=== PATIENT | male | born 1935 | race Two or more races ===

== ENCOUNTER 2017-03-13 14:54 | Inpatient (IN) | payer MEDICARE, MEDICAID ==
[~2017-03-13] VITALS: Ht 167.6 cm; Wt 87.1 kg
[2017-03-13] VITALS (9 sets, daily range): BP systolic 74–95; BP diastolic 43–60
--- NOTE | 2017-03-13 14:59 | Emergency Room Report ---
History of Present Illness General Chief Complaint: Fever Source: Patient Present Illness HPI This patient presents from a senior care facility. She presents with hypotension and fever. The patient had had a recent episode of pneumonia and was treated with IV antibiotics and transferred to the senior care facility. Today at the facility she was found to be hypotensive and febrile. Patient has a complicated medical history to include atrial fibrillation, Parkinson's, prosthetic heart valve, hypothyroidism, hepatitis C, coronary artery disease. The patient is unable to give a history. History is obtained from EMS and medical record. Allergies: Coded Allergies: No Known Allergies (Unverified , 03/13/17) Patient History Past Medical History: see triage record, old chart reviewed, AFib, arrhyth, asthma, CVA/TIA, dementia, other - Parkinson's, Hypothyroid, HCV Past Surgical History: pacemaker, other - Prosthetic heart valve Social History: Denies: alcohol use, drug use, smoking Reviewed Nursing Documentation: PMH: Agreed, PSxH: Agreed Review of Systems All Other Systems: negative except mentioned in HPI Physical Exam Vital Signs Date Time Temp Pulse Resp B/P Pulse Ox O2 Delivery O2 Flow Rate FiO2 03/13/17 14:52 102.0 88 18 89/52 94 Room Air Sp02 EP Interpretation: reviewed, normal General Appearance: no apparent distress, GCS 15, Chronically Ill Head: normocephalic, atraumatic Eyes: bilateral eye PERRL, bilateral eye normal inspection ENT: hearing grossly normal, normal pharynx, no angioedema Neck: full range of motion, supple/symm/no masses Respiratory: chest non-tender, lungs clear, no respiratory distress, no retraction, no accessory muscle use, wheezing - L. lung najera Cardiovascular #1: regular rate, rhythm, no edema, systolic murmur Gastrointestinal: soft, no guarding, no rebound, distended, tenderness - Diffusely ttp Rectal: deferred Musculoskeletal: normal range of motion, non-tender Neurologic: alert, responsive, other - Unsure of baseline, non-focal Skin: normal color, no rash, warm/dry, well hydrated Medical Decision Making Diagnostic Impression: Primary Impression: Sepsis Additional Impressions: Septic shock Fever Colitis ER Course This patient presents with septic shock. He has a white blood cell count of 53, 000. He is a temp of 102 and he is hypotensive. The patient was given aggressive IV fluid resuscitation and broad-spectrum antibiotics. The patient continued to have a declining blood pressure. Therefore, I felt I should put in a central line and start pressors, however the and daughter are bedside and states that the patient is DO NOT RESUSCITATE. This is also per the patient 's wishes. They only want limited intervention. They do not want any central lines, surgeries or pressors. They do not want intubation. The only want selected interventions. They would like him comfortable. He did agree to undergo CT of the abdomen and pelvis given that I could not find a source of this patient's sepsis. There is no evidence of urinary tract infection or significant pneumonia. CT of the abdomen and pelvis showed findings c/w colitis. Given the patient resides in a senior care facility, this could be C. difficile colitis. The patient was given Flagyl through the G-tube to try to treat this as a possibility. The patient continued to be very hypotensive. The patient is a very poor prognosis. However, the patient is DO NOT RESUSCITATE and primarily comfort measures therefore was placed in a telemetry bed instead of the ICU. This patient is critically ill. This patient required complex medical decision- making, aggressive intervention, extensive laboratory workup and monitoring. Critical care time: 40 minutes. Labs Test 03/13/17 15:10 White Blood Count 53.8 K/UL (4.8-10.8) Red Blood Count 3.61 M/UL (4.70-6.10) Hemoglobin 10.8 G/DL (14.2-18.0) Hematocrit 33.0 % (42.0-52.0) Mean Corpuscular Volume 91 FL (80-99) Mean Corpuscular Hemoglobin 30.0 PG (27.0-31.0) Mean Corpuscular Hemoglobin Concent 32.9 G/DL (32.0-36.0) Red Cell Distribution Width 12.3 % (11.6-14.8) Platelet Count 392 K/UL (150-450) Mean Platelet Volume 5.9 FL (6.5-10.1) Neutrophils (%) (Auto) % (45.0-75.0) Lymphocytes (%) (Auto) % (20.0-45.0) Monocytes (%) (Auto) % (1.0-10.0) Eosinophils (%) (Auto) % (0.0-3.0) Basophils (%) (Auto) % (0.0-2.0) EKG Diagnostic Results Rate: normal Rhythm: NSR ST Segments: no acute changes Rhythm Strip Diag. Results EP Interpretation: yes Rate: 80's Rhythm: NSR, no PVC's, no ectopy Chest X-Ray Diagnostic Results Chest X-Ray Ordered: Yes # of Views/Limited/Complete: 1 View Interpretation: no consolidation, no effusion, no pneumothorax Indication: Other - Fever Impression: No acute disease Date Electronically Signed: Mar 13, 2017 Time Electronically Signed: 18:40 Interpreting ER Physician: Jeyson CT/MRI/US Diagnostic Results CT/MRI/US Diagnostic Results : Imaging Test Ordered: CT abd/pelvis Impression Findings consistent with colitis and UA this. Please see official report. Last Vital Signs Date Time Temp Pulse Resp B/P Pulse Ox O2 Delivery O2 Flow Rate FiO2 03/13/17 14:52 102.0 88 18 89/52 94 Room Air Disposition: ADMITTED INPATIENT Condition: Critical CHAVA HAN D.O. Mar 13, 2017 14:59
[2017-03-13] MEDS ORDERED: Acetaminophen 650 MG SUPP RECTAL ONE (15:20)
[2017-03-13] MEDS ORDERED: Acetaminophen 650mg/20.3ml ONE (15:33)
[2017-03-13 15:34] LABS: MEAN CORPUSCULAR HGB CONC 32.9 G/DL (32.0-36.0); MEAN CORPUSCULAR VOLUME 91 FL (80-99); MEAN PLATELET VOLUME 5.9 FL (6.5-10.1); PLATELET COUNT 392 K/UL (150-450); RED BLOOD COUNT 3.61 M/UL (4.70-6.10); RED CELL DISTRIBUTION WIDTH 12.3 % (11.6-14.8)
[2017-03-13 15:39] LABS: WHITE BLOOD COUNT 53.8 K/UL (4.8-10.8)
[2017-03-13] MEDS ORDERED: Acetaminophen 650mg/20.3ml NG ONE (15:45)
[2017-03-13] MEDS ORDERED: Acetaminophen 650mg/20.3ml GT ONE (15:45)
[2017-03-13 15:52] LABS: TROPONIN I < 0.30 ng/mL (<=0.30)
[2017-03-13 15:55] LABS: ALANINE AMINOTRANSFERASE 21 U/L (3-41); ALBUMIN/GLOBULIN RATIO 0.6 (1.0-2.7); ASPARTATE AMINO TRANSFERASE 30 U/L (5-40); CARBON DIOXIDE 26 mEQ/L (20-30); HEMOLYSIS 21; TOTAL PROTEIN 5.5 g/dL (6.6-8.7)
[2017-03-13 15:56] LABS: ANION GAP 16 (5-15); CHLORIDE 89 mEQ/L (98-107); POTASSIUM 4.1 mEQ/L (3.4-4.9); SODIUM 131 mEQ/L (135-145)
[2017-03-13 16:00] LABS: REFLEX LACTIC ACID YES OR NO YES
--- NOTE | 2017-03-13 16:00 | Diagnostic Imaging Report ---
Indication: Chest pain Technique: One view of the chest Comparison: 07/29/2015 Findings: There is some atelectasis at both lung bases. No definite infiltrates, effusions, or congestion. The heart size is normal. Again demonstrated is a left chest pacemaker and evidence of prior aortic valve replacement. Impression: No acute process
[2017-03-13 16:06] LABS: CKMB 5.2 ng/mL (< 6.7)
[2017-03-13 16:17] LABS: APPEARANCE,URINE CLEAR; KETONES,URINE 1+ (NEGATIVE); LEUKOCYTE ESTERASE ,URINE 1+ (NEGATIVE); NITRITE,URINE NEGATIVE (NEGATIVE); PH,URINE 5 (4.5-8.0); PROTEIN,URINE 1+ (NEGATIVE); UROBILINOGEN,URINE 4 MG/DL (0.0-1.0)
[2017-03-13] MEDS ORDERED: Meropenem 1gm vial ONE (16:28)
[2017-03-13] MEDS ORDERED: Lidocaine 1% MPF 10mg/ml 5ml ONE (16:29)
[2017-03-13] MEDS ORDERED: DOPamine 400mg/250ml 250 ML IV ONE (16:30)
[2017-03-13] MEDS ORDERED: Meropenem 1 GM in NS 110 ML IVPB ONE (16:30)
[2017-03-13 16:31] LABS: AMORPHOUS SEDIMENT,UR FEW /LPF; BACTERIA,URINE FEW /HPF; WBC,URINE 0-2 /HPF (0 - 0)
[2017-03-13 16:44] LABS: LYMPHOCYTES % (MANUAL) 4 % (20-45); NEUTROPHILS % (MANUAL) 93 % (45-75); TOTAL CELLS COUNTED 100
[2017-03-13] MEDS ORDERED: AMIODARONE HCL400 M1 GT (16:44)
[2017-03-13] MEDS ORDERED: LEVOTHYROXINE88 MCG GT (16:44)
[2017-03-13] MEDS ORDERED: DIGOXIN125 MCG GT (16:44)
[2017-03-13] MEDS ORDERED: VITAMIN D1000 UNI1 GT ×2 (16:44→18:34)
[2017-03-13] MEDS ORDERED: DUONEB 0.5-3(2.53 ML HHN (16:44)
[2017-03-13] MEDS ORDERED: ALBUTEROL2.5 MG/3 M INH (16:44)
[2017-03-13] MEDS ORDERED: DOPamine 400mg/250ml 250 ML IV SCH (16:45)
[2017-03-13] MEDS ORDERED: PREDNISONE10 M2 GT (16:47)
[2017-03-13] MEDS ORDERED: RIVASTIGMINE4.5 MG PO (16:47)
[2017-03-13] MEDS ORDERED: NAMENDA10 MG GT ×2 (16:47→18:39)
[2017-03-13] MEDS ORDERED: PRAMIPEXOLE DI0.5 MG GT ×2 (16:47→18:58)
[2017-03-13] MEDS ORDERED: METOPROLOL TART25 MG GT (16:47)
[2017-03-13] MEDS ORDERED: EXELON4.6 MG TD (16:47)
[2017-03-13] MEDS ORDERED: MULTIPLE VITAM1 EAC6 GT (16:47)
[2017-03-13 16:50] LABS: BAND NEUTROPHILS % (MANUAL) 0 % (0-8); BASOPHILS % (MANUAL) 0 % (0-2); EOSINOPHILS % (MANUAL) 0 % (0-3); PLATELET ESTIMATE ADEQUATE; PLATELET MORPHOLOGY NORMAL
[2017-03-13] MEDS ORDERED: DALIRESP500 MCG GT (16:50)
[2017-03-13] MEDS ORDERED: SINGULAIR10 MG GT ×2 (16:50→18:42)
[2017-03-13] MEDS ORDERED: SINEMET 25-1001 EAC1 GT (16:50)
[2017-03-13] MEDS ORDERED: AMIODARONE HCL100 MG GT (18:31)
[2017-03-13] MEDS ORDERED: MULTIVITAMINS1 EAC8 GT (18:40)
[2017-03-13] MEDS ORDERED: metroNIDAZOLE 500mg 100 ML IVPB ONE (18:45)
[2017-03-13] MEDS ORDERED: Vancomycin 1 GM in D5W 275 ML IVPB ONE (18:45)
[2017-03-13] MEDS ORDERED: Vancomycin 1gm inj IVPB ONE (20:32)
--- NOTE | 2017-03-14 00:30 | History and Physical Report ---
DATE OF ADMISSION: 03/13/2017 REASON FOR ADMISSION: Respiratory failure, fever, and sepsis. HISTORY OF PRESENT ILLNESS: The patient is an 81-year-old male brought in with hypotension and fever. The patient with increasing congestion. The patient was transferred by 911 to the emergency room. The patient had multiple medical problems and seen in the emergency room and per family's decision they want Do Not Resuscitate order and are interested in comfort care. Due to lack of improvement, the patient is unable to give any history at this time. The patient is doing poorly. The patient is currently hypotensive and appears to be clearly withdrawn and appears acute. The patient was also noted to have profound leukocytosis. PAST MEDICAL AND SURGICAL HISTORY: Notable for prior bouts of sepsis, strokes, atrial fibrillation, Parkinsonism, aspiration, G-tube, CAD, and hypothyroidism. The patient with history of pacemaker, prosthetic heart valve. MEDICATIONS: Reviewed. ALLERGIES: Reviewed. SOCIAL HISTORY: Nonsmoker and nondrinker. Essentially bedbound. The patient does have a and is retired, [place] descent. REVIEW OF SYSTEMS: Unobtainable. PHYSICAL EXAMINATION: GENERAL: The patient is an ill-appearing male, withdrawn. VITAL SIGNS: Heart rate 77, blood pressure 83/51, O2 saturation 99%, and temperature 97.1. T-max 102.1. HEENT: Negative. Pupils are very sluggish at present. NECK: Supple. RESPIRATORY: Coarse breath sounds and rhonchi diffusely. The patient without any clear accessory muscle use. CARDIAC: S1 and S2. Regular rhythm. Systolic murmur noted. No rubs or gallops. ABDOMEN: Soft and nontender. G-tube in place. No significant distention. EXTREMITIES: No cyanosis or clubbing. There are contractures. NEUROLOGIC: Unable to assess. LABORATORY DATA: Laboratory data reviewed. The white count is currently elevated at 53, hemoglobin 10.8, and hematocrit 33. The remainder of the labs were notable for platelets which are normal. Sodium 131, BUN 35, and creatinine is 1. Albumin is 2.2. Urinalysis, 1+ leukocyte esterase, 0 to 2 white cells. IMPRESSION: 1. Profound sepsis with shock, negative chest x-ray, negative urinalysis, profound leukocytosis. 2. Atrial fibrillation. 3. Stroke. 4. Acute on chronic encephalopathy. 5. Prosthetic heart valve per history. 6. Severe protein-calorie malnutrition. RECOMMENDATIONS: 1. Prognosis is very poor. 2. We will give IV antibiotics, IV hydration, provide respiratory care, resume penitentiary medications. As per discussion with the family, they want more comfort care and we will discuss whether the plan is to remove current medications, we will call ID evaluation if the patient survives. The patient is critical and prognosis is very poor. Julian Soni M.D. DR: Rashid JOB#: [id number] CC: MARCO ANTONIO
[2017-03-14 04:09] VITALS: BP 91/41
[2017-03-14] MEDS ORDERED: Zosyn 3.375gm inj ONE (06:10)
[2017-03-14] MEDS: Piperacillin/Tazobactam 3.375 GM in D5W 110 ML IVPB SCH ×3 (06:19→22:43)
[2017-03-14 07:41] LABS: MEAN CORPUSCULAR HEMOGLOBIN 31.8 PG (27.0-31.0); MEAN CORPUSCULAR HGB CONC 34.4 G/DL (32.0-36.0); MEAN CORPUSCULAR VOLUME 92 FL (80-99); MEAN PLATELET VOLUME 5.7 FL (6.5-10.1); PLATELET COUNT 427 K/UL (150-450); RED BLOOD COUNT 3.06 M/UL (4.70-6.10); RED CELL DISTRIBUTION WIDTH 12.3 % (11.6-14.8)
[2017-03-14 07:44] LABS: WHITE BLOOD COUNT 47.4 K/UL (4.8-10.8)
[2017-03-14 07:48] LABS: ANION GAP 18 (5-15); CALCIUM 7.5 mg/dL (8.6-10.2); CARBON DIOXIDE 23 mEQ/L (20-30); CHLORIDE 95 mEQ/L (98-107); CREATININE 0.9 mg/dL (0.7-1.2); HEMOLYSIS 42; POTASSIUM 4.1 mEQ/L (3.4-4.9); SODIUM 136 mEQ/L (135-145)
[2017-03-14 08:00] VITALS: BP 92/53
[2017-03-14] MEDS: Sinemet 25/100 tab GT SCH ×4 (08:16→20:50)
[2017-03-14] MEDS: Amiodarone 200mg tab GT SCH (08:16)
[2017-03-14] MEDS: Digoxin 0.125mg tab GT SCH (08:17)
[2017-03-14] MEDS: Vitamin D 1000 IU Tab GT SCH (08:17)
[2017-03-14] MEDS: Pramipexole 0.5mg tab GT SCH ×4 (08:17→20:51)
[2017-03-14] MEDS: EXELON 4.6 MG TDERMAL SCH (08:23)
[2017-03-14] MEDS: Heparin 5000 units/ml inj SUBQ SCH ×2 (08:24→20:50)
[2017-03-14 10:00] LABS: BAND NEUTROPHILS % (MANUAL) 0 % (0-8); BASOPHILS % (MANUAL) 0 % (0-2); EOSINOPHILS % (MANUAL) 0 % (0-3); HYPOCHROMASIA 1+; LYMPHOCYTES % (MANUAL) 7 % (20-45); NEUTROPHILS % (MANUAL) 88 % (45-75); PLATELET ESTIMATE ADEQUATE; PLATELET MORPHOLOGY NORMAL; TOTAL CELLS COUNTED 100
[2017-03-14] MEDS: Vancomycin 1gm/D5W 275ml IVPB SCH ×4 (10:14→20:52)
--- NOTE | 2017-03-14 10:26 | Diagnostic Imaging Report ---
Indications: Shortness of breath, tachypnea Technique: Portable AP chest Findings: Comparison: 03/13/17 Cardiac silhouette remains normal in size. Pulmonary vasculature remains within normal limits. Linear densities persist in both lung bases. Lungs and pleura remain otherwise clear. Mild calcification and ectasia of the aortic arch pacemaker, sternal wires, bilateral glenohumeral degenerative arthropathy all again noted. IMPRESSION: No evidence of acute disease, unchanged Stable chronic changes as described
[2017-03-14] MEDS: metroNIDAZOLE 500mg tab ORAL SCH ×2 (11:13→22:43)
--- NOTE | 2017-03-14 11:30 | Pulmonology Progress Note ---
Assessment/Plan Assessment/Plan IMPRESSION: 1. Profound sepsis with shock, negative chest x-ray, negative urinalysis, profound leukocytosis. 2. Atrial fibrillation. 3. Stroke. 4. Acute on chronic encephalopathy. 5. Prosthetic heart valve per history. 6. Severe protein-calorie malnutrition. PLAN respiratory care oxygen IV antibiotics discussed with confirmed DNR start feeds impression, plan, and exam edited and reviewed in detail care discussed with RN Subjective Allergies: Coded Allergies: No Known Allergies (Unverified , 03/13/17) Objective Last 24 Hour Vital Signs Date Time Temp Pulse Resp B/P Pulse Ox O2 Delivery O2 Flow Rate FiO2 03/14/17 08:17 77 03/14/17 08:00 97.9 77 18 92/53 97 Room Air 03/14/17 07:55 Nasal Cannula 2.0 03/14/17 07:55 98 Nasal Cannula 2.0 03/14/17 07:55 79 20 Nasal Cannula 2.0 03/14/17 04:09 98.8 84 22 91/41 95 Nasal Cannula 2.0 03/14/17 04:00 77 03/14/17 00:00 78 03/13/17 23:57 99.0 78 20 84/46 95 Nasal Cannula 2.0 03/13/17 23:31 Nasal Cannula 2.0 28 03/13/17 23:31 98 Nasal Cannula 2.0 28 03/13/17 22:01 98.8 66 19 74/46 93 Nasal Cannula 03/13/17 22:00 81 03/13/17 21:50 99.1 79 29 87/43 99 Nasal Cannula 2.0 03/13/17 21:50 97.1 79 29 87/43 100 Nasal Cannula 2.0 03/13/17 21:15 99.1 75 28 84/47 99 Nasal Cannula 2.0 03/13/17 19:15 77 25 83/51 99 Nasal Cannula 2.0 03/13/17 17:00 83 28 85/48 99 Nasal Cannula 03/13/17 16:20 97.1 82 24 81/53 99 Nasal Cannula 2.0 03/13/17 16:00 85 26 95/60 99 Room Air 03/13/17 15:35 102.1 83 24 92/55 98 Nasal Cannula 2.0 03/13/17 15:30 84 26 Nasal Cannula 2.0 03/13/17 14:52 102.0 88 18 89/52 94 Room Air Intake and Output 03/13/17 03/14/17 19:00 07:00 Intake Total 3500 ml 700 ml Output Total 30 ml 700 ml Balance 3470 ml 0 ml Intake IV Total 3500 ml 700 ml Output Urine Total 30 ml 700 ml # Bowel Movements 1 Objective GENERAL: The patient is an ill-appearing male, withdrawn. HEENT: Negative. Pupils are very sluggish at present. NECK: Supple. RESPIRATORY: reduced breath sounds and reduced rhonchi diffusely. NAD CARDIAC: S1 and S2. Regular rhythm. Systolic murmur noted. No rubs or gallops. ABDOMEN: Soft and nontender. G-tube in place. No significant distention. EXTREMITIES: No cyanosis or clubbing. There are contractures. NEUROLOGIC: Unable to assess. withdrawn and nonverbal Microbiology Date/Time Source Procedure Growth Status 03/13/17 19:30 Stool Clostridium difficile Toxin Assay - Final Complete 03/13/17 15:50 Indwelling Cath Urine Culture - Preliminary NO GROWTH Resulted Laboratory Tests 03/13/17 15:10: White Blood Count 53.8*H, Red Blood Count 3.61L, Hemoglobin 10.8L, Hematocrit 33.0L, Mean Corpuscular Volume 91, Mean Corpuscular Hemoglobin 30.0, Mean Corpuscular Hemoglobin Concent 32.9, Red Cell Distribution Width 12.3, Platelet Count 392, Mean Platelet Volume 5.9L, Neutrophils (%) (Auto) , Lymphocytes (%) ( Auto) , Monocytes (%) (Auto) , Eosinophils (%) (Auto) , Basophils (%) (Auto) , Differential Total Cells Counted 100, Neutrophils % (Manual) 93H, Lymphocytes % (Manual) 4L, Monocytes % (Manual) 3, Eosinophils % (Manual) 0, Basophils % ( Manual) 0, Band Neutrophils 0, Platelet Estimate Adequate, Platelet Morphology Normal, Sodium Level 131L, Potassium Level 4.1, Chloride Level 89L, Carbon Dioxide Level 26, Anion Gap 16H, Blood Urea Nitrogen 35H, Creatinine 1.0, Estimat Glomerular Filtration Rate , Glucose Level 127H, Lactic Acid Level 2.00 , Calcium Level 8.0L, Total Bilirubin 0.5, Aspartate Amino Transf (AST/SGOT) 30 , Alanine Aminotransferase (ALT/SGPT) 21, Alkaline Phosphatase 106, Total Creatine Kinase 107, Creatine Kinase MB 5.2, Creatine Kinase MB Relative Index 4.8, Troponin I < 0.30, Total Protein 5.5L, Albumin 2.2L, Globulin 3.3, Albumin/ Globulin Ratio 0.6L 03/13/17 15:50: Urine Color Brown, Urine Appearance Clear, Urine pH 5, Urine Specific [place] 1.010, Urine Protein 1+H, Urine Glucose (UA) Negative, Urine Ketones 1+H, Urine Occult Blood Negative, Urine Nitrite Negative, Urine Bilirubin Negative, Urine Urobilinogen 4H, Urine Leukocyte Esterase 1+H, Urine RBC 2-4H, Urine WBC 0-2, Urine Squamous Epithelial Cells None, Urine Amorphous Sediment FewH, Urine Bacteria Few 03/14/17 05:00: White Blood Count 47.4*H, Red Blood Count 3.06L, Hemoglobin 9.7L, Hematocrit 28.3L, Mean Corpuscular Volume 92, Mean Corpuscular Hemoglobin 31.8H, Mean Corpuscular Hemoglobin Concent 34.4, Red Cell Distribution Width 12.3, Platelet Count 427, Mean Platelet Volume 5.7L, Neutrophils (%) (Auto) , Lymphocytes (%) ( Auto) , Monocytes (%) (Auto) , Eosinophils (%) (Auto) , Basophils (%) (Auto) , Differential Total Cells Counted 100, Neutrophils % (Manual) 88H, Lymphocytes % (Manual) 7L, Monocytes % (Manual) 5, Eosinophils % (Manual) 0, Basophils % ( Manual) 0, Band Neutrophils 0, Platelet Estimate Adequate, Platelet Morphology Normal, Sodium Level 136, Potassium Level 4.1, Chloride Level 95L, Carbon Dioxide Level 23, Anion Gap 18H, Blood Urea Nitrogen 31H, Creatinine 0.9, Estimat Glomerular Filtration Rate , Glucose Level 86, Calcium Level 7.5L, Hypochromasia 1+ Current Medications Medications (Trade) Dose Ordered Sig/Eddie Route PRN Reason Start Time Stop Time Status Last Admin Dose Admin Acetaminophen 650 mg 650 mg EVERY 4 HOURS PRN GT Mild Pain/Temp > 100.5 03/13/17 23:00 04/12/17 22:59 Albuterol Sulfate (Proventil) 2.5 mg EVERY 4 HOURS PRN HHN Shortness of Breath 03/13/17 23:00 03/18/17 22:59 Amiodarone HCl (Cordarone) 50 mg DAILY GT 03/14/17 09:00 04/13/17 08:59 03/14/17 08:16 Carbidopa/Levodopa (Sinemet 25/100) 1 ea FOUR TIMES A DAY GT 03/14/17 09:00 04/13/17 08:59 03/14/17 08:16 Dextrose (Dextrose 50%) STAT PRN IV Hypoglycemia 03/13/17 23:00 04/12/17 22:59 Digoxin (Lanoxin) 0.125 mg DAILY GT 03/14/17 09:00 04/13/17 08:59 03/14/17 08:17 Heparin Sodium (Porcine) (Heparin 5000 units/ml) 5,000 units EVERY 12 HOURS SUBQ 03/14/17 09:00 04/13/17 08:59 03/14/17 08:24 Levothyroxine Sodium (Synthroid) 88 mcg DAILY@0630 GT 03/14/17 06:30 04/13/17 06:29 03/14/17 06:19 Memantine (Namenda) 10 mg BEDTIME GT 03/14/17 21:00 04/13/17 20:59 Metronidazole (Flagyl) 500 mg Q8HR ORAL 03/14/17 11:00 03/21/17 10:59 03/14/17 11:13 Montelukast Sodium (Singulair) 10 mg QPM GT 03/14/17 16:30 04/13/17 16:29 Non-Formulary Medication (Non-Formulary Med) 1 ea DAILY ORAL 03/14/17 09:00 04/13/17 08:59 UNV Ondansetron HCl (Zofran) 4 mg EVERY 6 HOURS PRN IVP Nausea & Vomiting 03/13/17 23:00 04/12/17 22:59 Piperacillin Sod/ Tazobactam Sod/ Dextrose (Zosyn/D5W) 110 ml @ 27.5 mls/hr EVERY 8 HOURS IVPB 03/14/17 06:00 03/19/17 05:59 03/14/17 06:19 Pramipexole (Mirapex) 0.25 mg BEDTIME GT 03/14/17 21:00 04/13/17 20:59 Pramipexole (Mirapex) 0.5 mg TID GT 03/14/17 09:00 04/13/17 08:59 03/14/17 08:17 Rivastigmine Tartrate (Exelon) 4.6 mg DAILY TDERMAL 03/14/17 09:00 04/13/17 08:59 03/14/17 08:23 Sodium Chloride 1,000 ml @ 100 mls/hr Q10H IV 03/13/17 23:00 04/12/17 22:59 03/14/17 10:13 Vancomycin HCl 1 ea 1 ea DAILY PRN MISC Per rx protocol 03/13/17 23:00 04/12/17 22:59 Vancomycin HCl/ Dextrose (Vancomycin/D5W) 275 ml @ 183.708 mls/hr Q12H IVPB 03/14/17 08:00 03/19/17 07:59 03/14/17 10:14 Vitamin D (Vitamin D) 2,000 intlu DAILY GT 03/14/17 09:00 04/13/17 08:59 03/14/17 08:17 MOMO MOORE Mar 14, 2017 11:30
[2017-03-14 12:00] VITALS: BP 134/80
--- NOTE | 2017-03-14 13:04 | Diagnostic Imaging Report ---
Indications: Abdominal pain Technique: Continuous helical CT imaging of the abdomen and pelvis was performed with automatic exposure control following administration of nonionic IV contrast only, on a Siemens sensation [address] scanner. Axial and coronal images were reconstructed at 5 mm slice thickness. No oral contrast was administered per requesting physician's order, despite no contraindications listed. CTDI volume(s): 18 mGy Total DLP: 971 mGy-cm Findings: Comparison: None Lack of oral contrast limits evaluation of gastrointestinal tract. Percutaneous gastrostomy tube in place. Multiple small bowel loops are mildly distended and fluid-filled with air-fluid levels. No discrete transition point. Appendix not identified. Colon variably distended and fecal filled. Long segment circumferential mural thickening beginning of distal descending colon and extending for rectum. Diffuse mesenteric haziness. No extraluminal gas or fluid collections. Scattered arterial mural calcifications. No obvious flow-limiting stenosis or occlusion. Guillermo catheter in collapsed urinary bladder. Surgical clips in right inguinal region. Diastases of linea alba resulting in broad-based bulging of intra-abdominal wall contour. Superimposed small umbilical hernia contains only fat. Diffuse body wall haziness. Increased interstitial markings, irregular pleural-based linear densities in both lung bases. Pacemaker leads in right heart chambers. Aortic valve prosthesis in place. Sternal wires. Multilevel disc space narrowing with marginal osteophyte formation, vacuum phenomenon, discogenic sclerosis lumbar, lower thoracic spine. Facet hypertrophy lower lumbar spine. Calcified nodules bilateral buttock subcutaneous soft tissues. IMPRESSION: Long segment mural thickening of left colon and rectum compatible with proctocolitis, atypical for diverticulitis, favor infectious or noninfectious inflammatory (inflammatory bowel disease) etiology. Ischemia less likely, not entirely excludable. Small bowel findings suggest ileus, may be reactive to above or represent related enteritis. No evidence of obstruction. Diffuse mesenteric edema may be secondary to above and/or anasarca No other evidence of acute abdominopelvic disease, with limitation as described. Subtle but potentially significant abnormalities may be missed. Repeat CT scan with full oral and IV contrast preparation recommended for more complete evaluation, as clinically indicated Gastrostomy tube, Guillermo catheter Previous right inguinal herniorrhaphy Diastases of the linea alba Small fat-containing umbilical hernia Pulmonary bibasal subsegmental atelectasis, superimposed nonspecific interstitial changes Pacemaker, aortic valve prosthesis Degenerative spondylosis Bilateral buttock injection granulomas
[2017-03-14] MEDS ORDERED: Vancomycin oral 125mg/2.5ml ORAL SCH (13:30)
[2017-03-14 14:12] LABS: OTHERS PATHOLOGIST COMMENT
[2017-03-14 16:00] VITALS: BP 93/47
[2017-03-14] MEDS: Montelukast 10mg tablet GT SCH (17:14)
[2017-03-14] MEDS: Vancomycin oral 125mg/2.5ml GT SCH ×2 (17:16→20:51)
--- NOTE | 2017-03-14 19:30 | History and Physical Report ---
DATE OF ADMISSION: 03/13/2017 CHIEF COMPLAINT: Sepsis and colitis. HISTORY OF PRESENT ILLNESS: The patient is an 81-year-old male well known to me. He has a history of encephalopathy, stroke, hypertension, COPD, chronic respiratory failure, encephalopathy, severe Parkinson's disease, ischemic cardiomyopathy, conduction system disease, status post pacemaker. He presented from a shelter facility with complaints of abdominal pain, diarrhea, and severe leukocytosis. The patient was noted to be increasingly congestive, hypotensive, and febrile. According to the patient's , he has been having diarrhea for several days. On evaluation in the emergency room, the patient had a white count of 50,000. He had CT evidence of diffuse colitis. The patient was pancultured. He has been started on broad-spectrum antibiotics. He is now admitted for further inpatient evaluation and care. PAST MEDICAL HISTORY: As above. He has a history of atrial fibrillation and prosthetic heart valve. CURRENT MEDICATIONS: Reconciled and reviewed. ALLERGIES: None. SOCIAL HISTORY: Negative for tobacco, ethanol or drugs. The patient is DNR. FAMILY HISTORY: None. REVIEW OF SYSTEMS: Unobtainable from the patient as he is nonverbal. PHYSICAL EXAMINATION: VITAL SIGNS: Temperature is 99, blood pressure 84/46, pulse 78, and respirations 20. GENERAL: The patient in no apparent distress. He is poorly responsive. . NECK: Supple. There is no jugular venous distention. There is no lymphadenopathy. HEART: Regular rate and rhythm. LUNGS: Clear. ABDOMEN: Soft. Minimally distended. There is no rebound or guarding. EXTREMITIES: Without clubbing, cyanosis or edema. LABORATORY AND DIAGNOSTIC DATA: UA was negative. Sodium 131, potassium 4.1, BUN 35, and creatinine was 1. Lactic acid level was 2. The white count was 53,000, hemoglobin 10, and platelet count of 392,000. CT scan showed colitis. ASSESSMENT: This is an unfortunate male with multiple medical problems admitted with complaints of sepsis and colitis, suspect secondary to Clostridium difficile. 1. Colitis. 2. Sepsis. 3. Encephalopathy. 4. Chronic obstructive pulmonary disease. 5. Respiratory failure. 6. Atrial fibrillation. 7. History of hypertension. PLAN: IV antibiotics. Check C. difficile, empiric treatment for C. difficile colitis. ID and Pulmonary consultations. Continue G-tube feeds. Continue aggressive hydration. DNR as per the patient's advance directive. Blane Orantes M.D. DR: HEATHER JOB#: [id number] CC:
[2017-03-14] MEDS: Albuterol ud Inhalation HHN PRN (20:12)
[2017-03-14 20:19] VITALS: BP 92/52
[2017-03-14] MEDS: Memantine 10mg tab GT SCH (20:51)
[2017-03-15 00:02] VITALS: BP 93/56
[2017-03-15 03:53] VITALS: BP 88/54
[2017-03-15] MEDS: Piperacillin/Tazobactam 3.375 GM in D5W 110 ML IVPB SCH (05:33)
[2017-03-15] MEDS: metroNIDAZOLE 500mg tab ORAL SCH ×2 (05:33→13:48)
[2017-03-15 08:00] VITALS: BP 80/50
--- NOTE | 2017-03-15 08:08 | Pulmonology Progress Note ---
Assessment/Plan Assessment/Plan IMPRESSION: 1. Profound sepsis with shock, negative chest x-ray, negative urinalysis, profound leukocytosis. 2. Atrial fibrillation. 3. Stroke. 4. Acute on chronic encephalopathy. 5. Prosthetic heart valve per history. 6. Severe protein-calorie malnutrition. PLAN respiratory care oxygen IV antibiotics; follow up cultures discussed with confirmed DNR on feeds care noted and reviewed impression, plan, and exam edited and reviewed in detail care discussed with RN Subjective ROS Limited/Unobtainable: Yes Allergies: Coded Allergies: No Known Allergies (Unverified , 03/13/17) Subjective care noted and reviewed Objective Last 24 Hour Vital Signs Date Time Temp Pulse Resp B/P Pulse Ox O2 Delivery O2 Flow Rate FiO2 03/15/17 04:00 76 03/15/17 03:53 98.6 79 22 88/54 94 Nasal Cannula 2.0 03/15/17 00:02 98.1 75 20 93/56 97 Nasal Cannula 2.0 03/15/17 00:00 75 03/14/17 20:21 72 18 100 Nasal Cannula 2.0 28 03/14/17 20:19 98.8 78 21 92/52 94 Nasal Cannula 2.0 03/14/17 20:12 73 18 97 Nasal Cannula 2.0 28 03/14/17 20:00 75 03/14/17 19:30 97 Nasal Cannula 2.0 28 03/14/17 19:30 Nasal Cannula 2.0 28 03/14/17 19:30 76 18 Nasal Cannula 2.0 28 03/14/17 16:00 97.6 92 18 93/47 Nasal Cannula 2.0 98 03/14/17 15:26 75 03/14/17 12:00 97.2 80 18 134/80 Nasal Cannula 2.0 99 03/14/17 11:31 77 03/14/17 08:17 77 Intake and Output 03/14/17 03/15/17 19:00 07:00 Intake Total 1635.000 ml 1932.500 ml Output Total 800 ml Balance 1635.000 ml 1132.500 ml Intake Free Water 150 ml IV Total 1595.000 ml 1412.500 ml Tube Feeding 40 ml 370 ml Output Urine Total 800 ml # Bowel Movements 2 2 Objective GENERAL: The patient is an ill-appearing male, withdrawn. HEENT: Negative. Pupils are very sluggish at present. NECK: Supple. RESPIRATORY: reduced breath sounds and reduced rhonchi diffusely. NAD CARDIAC: S1 and S2. Regular rhythm. Systolic murmur noted. No rubs or gallops. ABDOMEN: Soft and nontender. G-tube in place. No significant distention. EXTREMITIES: No cyanosis or clubbing. There are contractures. NEUROLOGIC: Unable to assess. withdrawn and nonverbal reviewed and edited Microbiology Date/Time Source Procedure Growth Status 03/13/17 15:15 Blood Blood Culture - Preliminary NO GROWTH AFTER 24 HOURS Resulted 03/13/17 15:10 Blood Blood Culture - Preliminary NO GROWTH AFTER 24 HOURS Resulted 03/13/17 19:30 Stool Clostridium difficile Toxin Assay - Final Complete 03/13/17 15:50 Indwelling Cath Urine Culture - Preliminary NO GROWTH Resulted Laboratory Tests 03/15/17 07:24: Vancomycin Level Trough 14.1H Current Medications Medications (Trade) Dose Ordered Sig/Eddie Route PRN Reason Start Time Stop Time Status Last Admin Dose Admin Acetaminophen 650 mg 650 mg EVERY 4 HOURS PRN GT Mild Pain/Temp > 100.5 03/13/17 23:00 04/12/17 22:59 Albuterol Sulfate (Proventil) 2.5 mg EVERY 4 HOURS PRN HHN Shortness of Breath 03/13/17 23:00 03/18/17 22:59 03/14/17 20:12 Amiodarone HCl (Cordarone) 50 mg DAILY GT 03/14/17 09:00 04/13/17 08:59 03/14/17 08:16 Carbidopa/Levodopa (Sinemet 25/100) 1 ea FOUR TIMES A DAY GT 03/14/17 09:00 04/13/17 08:59 03/14/17 20:50 Dextrose (Dextrose 50%) STAT PRN IV Hypoglycemia 03/13/17 23:00 04/12/17 22:59 Digoxin (Lanoxin) 0.125 mg DAILY GT 03/14/17 09:00 04/13/17 08:59 03/14/17 08:17 Heparin Sodium (Porcine) (Heparin 5000 units/ml) 5,000 units EVERY 12 HOURS SUBQ 03/14/17 09:00 04/13/17 08:59 03/14/17 20:50 Levothyroxine Sodium (Synthroid) 88 mcg DAILY@0630 GT 03/14/17 06:30 04/13/17 06:29 03/15/17 05:33 Memantine (Namenda) 10 mg BEDTIME GT 03/14/17 21:00 04/13/17 20:59 03/14/17 20:51 Metronidazole (Flagyl) 500 mg Q8HR ORAL 03/14/17 11:00 03/21/17 10:59 03/15/17 05:33 Montelukast Sodium (Singulair) 10 mg QPM GT 03/14/17 16:30 04/13/17 16:29 03/14/17 17:14 Non-Formulary Medication (Non-Formulary Med) 1 ea DAILY ORAL 03/14/17 09:00 04/13/17 08:59 UNV Ondansetron HCl (Zofran) 4 mg EVERY 6 HOURS PRN IVP Nausea & Vomiting 03/13/17 23:00 04/12/17 22:59 Piperacillin Sod/ Tazobactam Sod/ Dextrose (Zosyn/D5W) 110 ml @ 27.5 mls/hr EVERY 8 HOURS IVPB 03/14/17 06:00 03/19/17 05:59 03/15/17 05:33 Pramipexole (Mirapex) 0.25 mg BEDTIME GT 03/14/17 21:00 04/13/17 20:59 03/14/17 20:51 Pramipexole (Mirapex) 0.5 mg TID GT 03/14/17 09:00 04/13/17 08:59 03/14/17 17:16 Rivastigmine Tartrate (Exelon) 4.6 mg DAILY TDERMAL 03/14/17 09:00 04/13/17 08:59 03/14/17 08:23 Sodium Chloride 1,000 ml @ 100 mls/hr Q10H IV 03/13/17 23:00 04/12/17 22:59 03/15/17 06:30 Vancomycin HCl (Vancomycin) 250 mg QID GT 03/14/17 14:52 03/21/17 13:29 03/14/17 20:51 Vancomycin HCl 1 ea 1 ea DAILY PRN MISC Per rx protocol 03/13/17 23:00 04/12/17 22:59 Vancomycin HCl/ Dextrose (Vancomycin/D5W) 275 ml @ 183.708 mls/hr Q12H IVPB 03/14/17 08:00 03/19/17 07:59 03/14/17 20:52 Vitamin D (Vitamin D) 2,000 intlu DAILY GT 03/14/17 09:00 04/13/17 08:59 03/14/17 08:17 MOMO MOORE Mar 15, 2017 08:07
[2017-03-15] MEDS: Digoxin 0.125mg tab GT SCH ×2 (09:17→09:49)
[2017-03-15] MEDS: Vancomycin 1gm/D5W 275ml IVPB SCH ×2 (09:17)
[2017-03-15] MEDS: Sinemet 25/100 tab GT SCH ×4 (09:18→21:30)
[2017-03-15] MEDS: Pramipexole 0.5mg tab GT SCH ×4 (09:18→21:30)
[2017-03-15] MEDS: Vitamin D 1000 IU Tab GT SCH (09:19)
[2017-03-15] MEDS: Vancomycin oral 125mg/2.5ml GT SCH ×4 (09:19→21:30)
[2017-03-15] MEDS: EXELON 4.6 MG TDERMAL SCH (09:20)
[2017-03-15] MEDS: Heparin 5000 units/ml inj SUBQ SCH ×2 (09:21→21:30)
[2017-03-15] MEDS ORDERED: NS 275ml ONE (10:29)
[2017-03-15] MEDS ORDERED: Tubing IV Secondary IV ONE (10:29)
[2017-03-15] MEDS ORDERED: Sterile Water Irrig 1000ml IRRIG ONE (10:29)
[2017-03-15] MEDS: Amiodarone 200mg tab GT SCH (11:41)
[2017-03-15 12:00] VITALS: BP 91/60
[2017-03-15] MEDS: Acetaminophen 650mg/20.3ml GT PRN (13:39)
--- NOTE | 2017-03-15 14:59 | General Progress Note ---
Assessment/Plan Problem List: (1) Sepsis ICD Codes: A41.9 - Sepsis, unspecified organism SNOMED: 97103895 (2) Septic shock ICD Codes: A41.9 - Sepsis, unspecified organism; R65.21 - Severe sepsis with septic shock SNOMED: 14241664 (3) Fever ICD Codes: R50.9 - Fever, unspecified SNOMED: 916726473 (4) Colitis ICD Codes: K52.9 - Noninfective gastroenteritis and colitis, unspecified SNOMED: 65613492 Status: stable, progressing Assessment/Plan cdiff rx gt feeds resp care suctioning family considering hospice Subjective ROS Limited/Unobtainable: Yes Constitutional: Reports: malaise, weakness HEENT: Reports: no symptoms Cardiovascular: Reports: no symptoms Respiratory: Reports: cough Gastrointestinal/Abdominal: Reports: diarrhea, difficulty swallowing Genitourinary: Reports: no symptoms Neurologic/Psychiatric: Reports: pre-existing deficit Endocrine: Reports: no symptoms Hematologic/Lymphatic: Reports: anemia Allergies: Coded Allergies: No Known Allergies (Unverified , 03/13/17) All Systems: reviewed and negative except above Subjective no events. family at the bedside. no fevers. no chills. tolerating feeds Objective Last 24 Hour Vital Signs Date Time Temp Pulse Resp B/P Pulse Ox O2 Delivery O2 Flow Rate FiO2 03/15/17 14:09 98.5 03/15/17 12:00 78 03/15/17 12:00 98.5 78 19 91/60 96 03/15/17 09:49 76 03/15/17 08:00 99.2 79 20 80/50 94 Nasal Cannula 2.0 03/15/17 08:00 77 03/15/17 04:00 76 03/15/17 03:53 98.6 79 22 88/54 94 Nasal Cannula 2.0 03/15/17 00:02 98.1 75 20 93/56 97 Nasal Cannula 2.0 03/15/17 00:00 75 03/14/17 20:21 72 18 100 Nasal Cannula 2.0 28 03/14/17 20:19 98.8 78 21 92/52 94 Nasal Cannula 2.0 03/14/17 20:12 73 18 97 Nasal Cannula 2.0 28 03/14/17 20:00 75 03/14/17 19:30 97 Nasal Cannula 2.0 28 03/14/17 19:30 Nasal Cannula 2.0 28 03/14/17 19:30 76 18 Nasal Cannula 2.0 28 03/14/17 16:00 97.6 92 18 93/47 Nasal Cannula 2.0 98 03/14/17 15:26 75 Intake and Output 03/14/17 03/15/17 19:00 07:00 Intake Total 1635.000 ml 1932.500 ml Output Total 800 ml Balance 1635.000 ml 1132.500 ml Intake Free Water 150 ml IV Total 1595.000 ml 1412.500 ml Tube Feeding 40 ml 370 ml Output Urine Total 800 ml # Bowel Movements 2 2 Laboratory Tests 03/15/17 07:24: Vancomycin Level Trough 14.1H Height (Feet): 5 Height (Inches): 6.00 Weight (Pounds): 192 General Appearance: WD/WN, confused Neck: supple Cardiovascular: normal rate, regular rhythm Respiratory/Chest: normal breath sounds, no respiratory distress, no accessory muscle use, rhonchi - bilaterally Neurologic: disoriented, unresponsive, aphasia Skin: normal pigmentation SONI EMERSON Mar 15, 2017 14:59
[2017-03-15] MEDS: Montelukast 10mg tablet GT SCH (15:59)
[2017-03-15 16:04] VITALS: BP 79/49
--- NOTE | 2017-03-15 18:00 | Consultation ---
DATE OF CONSULTATION: 03/15/2017 INFECTIOUS DISEASES CONSULTATION CONSULTING PHYSICIAN: Juan Jonas M.D. REFERRING PHYSICIAN: Julian Soni M.D. REASON FOR CONSULTATION: Leukocytosis. HISTORY OF PRESENTING ILLNESS: This is an 81-year-old gentleman with history of CVA, hypertension, chronic obstructive pulmonary disease, respiratory failure, and Parkinson disease, who came in with abdominal pain, diarrhea, and leukocytosis. He was found to have CT evidence of diffuse colitis and was found to have C. difficile colitis. An Infectious Diseases consultation has been obtained for antibiotics. PAST MEDICAL HISTORY: 1. History of encephalopathy. 2. CVA. 3. Hypertension. 4. Chronic obstructive pulmonary disease. 5. Respiratory failure. 6. History of encephalopathy. 7. Parkinson disease. 8. Cardiomyopathy. 9. 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 10. Atrial fibrillation. 11. History of prostatic heart valve. MEDICATIONS: As an inpatient, the patient is on Namenda, Mirapex, Singulair, G-tube vancomycin, Flagyl, subcutaneous heparin, amiodarone, Sinemet, digoxin, Mirapex, Exelon, vitamin D, intravenous vancomycin, Zosyn, levothyroxine, albuterol, Zofran, and Tylenol. ALLERGIES: No known drug allergies. SOCIAL HISTORY: No history of smoking, alcohol, or drug use. FAMILY HISTORY: Unknown. REVIEW OF SYSTEMS: Unable to obtain currently. PHYSICAL EXAMINATION: VITAL SIGNS: Temperature of 99.2 degrees, T-max of 99.2 degrees, pulse of 76, respiratory rate of 20, blood pressure 80/50, and O2 saturation of 94%. HEENT: Pupils equally reactive to light and accommodation. Mouth appears clean without thrush. NECK: Supple. No adenopathy. No JVD. CARDIOVASCULAR: Regular rate and rhythm. No murmurs. LUNGS: Wheezing noted bilaterally. ABDOMEN: Soft and nontender. G-tube site appears clean. EXTREMITIES: No cyanosis. No clubbing. Edema noted bilaterally. LABORATORY AND DIAGNOSTIC DATA: White count of 53 on 03/13/2017, white count of 47.4 on 03/14/2017, hemoglobin 9.7, hematocrit 28.3, MCV 92, and platelet count of 427,000 with neutrophils of 88%. Sodium 136, potassium 4.1, chloride 95, bicarbonate 23, BUN 31, creatinine 0.9, glucose 86, and calcium 7.5. Total bilirubin on 03/13/2017 is 0.5. AST 30, ALT 21, and alkaline phosphatase 106. CK of 107. CK-MB 5.2. Troponin less than 0.3. Total protein 5.5. Albumin 2.2. UA is showing 0 to 2 white cells. Stool for C. difficile was positive. Urine cultures are negative. Blood cultures are negative. Chest x-ray showed no evidence of acute disease. CT abdomen and pelvis is showing long segment wall thickening of the left colon and rectum compatible with proctocolitis, possible enteritis, diffuse mesenteric edema noted, atelectasis noted, and aortic valve prosthesis noted. ASSESSMENT: 1. This is a 81-year-old gentleman with history of aortic valve post prosthesis, hypertension, and chronic obstructive pulmonary disease, who comes in and is found to have leukocytosis and Clostridium difficile colitis. The leukocytosis is improving. 2. Cardiomyopathy. 3. Encephalopathy. 4. Parkinson disease. 5. Hypertension. PLAN: 1. Discontinue intravenous vancomycin and Zosyn. 2. We will continue Flagyl and p.o. vancomycin. 3. We will follow up cultures. I would like to thank, Dr. Soni, for this consultation. Juan Jonas M.D. DR: CARLOS JOB#: [id number] CC: Julian Soni M.D.; Fax#: [phone]
[2017-03-15 20:08] VITALS: BP 78/42
[2017-03-15] MEDS: Memantine 10mg tab GT SCH (21:30)
[2017-03-15] MEDS: metroNIDAZOLE 500mg tab GT SCH (22:29)
--- NOTE | 2017-03-15 23:34 | Wound Care Consultation ---
Wound Assessment Wound Assessment #1: Wound Number: #1 Wound Present on Admission: Yes New Wound: No Status Change of Wound: No Wound Location Body Site Modif: mid Wound Location Body Site: sacral Wound Type: other - possible sinus tract scar tissue, dry at this time. Lorie Test: Does not Lorie Wound Length: 0.4 Wound Width: 0.4 Wound Depth: 0.4 Percent of Wound Black/Brown: 100 - noted brown in color. Wound Drainage Amount: None Wound Drainage Odor: None/Absent Tissue Surrounding Wound: Intact Wound General Appearance: Clean/Dry - no drainage noted at this time, possible sinus tract remains dry at this time. Wound Assessment #2: Wound Number: #2 Wound Present on Admission: Yes New Wound: No Status Change of Wound: No Wound Location Body Site Modif: right Wound Location Body Site: heel Wound Type: pressure ulcer Lorie Test: Does not Lorie Pressure Ulcer Stage: deep tissue injury Wound Thickness: Full Thickness Wound Length: 6.0 Wound Width: 8.0 Wound Depth: utd Percent of Wound Purple/Maroon: 100 Wound Drainage Amount: None Wound Drainage Odor: None/Absent Tissue Surrounding Wound: Erythemic Wound General Appearance: Reddened - maroon Wound Assessment #3: Wound Number: #3 Wound Present on Admission: Yes New Wound: No Status Change of Wound: No Wound Location Body Site Modif: left, upper Wound Location Body Site: arm Wound Type: scab - dry scattered scabs. Lorie Test: Does not Lorie Wound Thickness: Partial Thickness Percent of Wound [place]/Red: 50 Percent of Wound Black/Brown: 50 - dry scabs. Wound Drainage Amount: None Wound Drainage Odor: None/Absent Tissue Surrounding Wound: Erythemic Wound General Appearance: Reddened, Clean/Dry Wound Assessment #4: Wound Number: #4 Wound Present on Admission: Yes New Wound: No Status Change of Wound: No Wound Location Body Site: abdomen Wound Type: scab - scattered scabs Lorie Test: Does not Lorie Percent of Wound [place]/Red: 100 Wound Drainage Amount: None Wound Drainage Odor: None/Absent Tissue Surrounding Wound: Erythemic Wound General Appearance: Reddened Wound Comment #1 Mid sacral possible sinus tract scar tissue.- site remains dry at this time, monitor for any drainage or change in condition in skin . #2 Right heel deep tissue injury pressure ulcer. #3 Left upper extremity scattered scabs. #4 Abdomen scattered scabs. Recommendation. - Local wound care as ordered. - Apply low air loss SPR mattress. -Keep clean and dry. -Offload affected sites. -Heel protectors. -Offload heels and feet. - Avoid shear and friction. -Optimize nutrition. -Assess and follow up with MD for any change of condition to skin noted. MORGAN BENZ Mar 15, 2017 23:34
[2017-03-16] VITALS: BP 92/59
[2017-03-16 04:00] VITALS: BP 86/48
[2017-03-16] MEDS: metroNIDAZOLE 500mg tab GT SCH ×3 (06:30→21:58)
[2017-03-16 08:00] VITALS: BP 137/49
[2017-03-16] MEDS: Sinemet 25/100 tab GT SCH ×4 (08:40→20:49)
[2017-03-16] MEDS: Vancomycin oral 125mg/2.5ml GT SCH ×4 (08:40→21:00)
[2017-03-16] MEDS: Amiodarone 200mg tab GT SCH (08:41)
[2017-03-16] MEDS: Pramipexole 0.5mg tab GT SCH ×4 (08:41→20:49)
[2017-03-16] MEDS: Vitamin D 1000 IU Tab GT SCH (08:41)
[2017-03-16] MEDS: Digoxin 0.125mg tab GT SCH (08:46)
[2017-03-16] MEDS: EXELON 4.6 MG TDERMAL SCH (08:48)
[2017-03-16] MEDS: Heparin 5000 units/ml inj SUBQ SCH ×2 (08:58→20:53)
--- NOTE | 2017-03-16 10:11 | Pulmonology Progress Note ---
Assessment/Plan Assessment/Plan IMPRESSION: 1. Profound sepsis with shock, negative chest x-ray, negative urinalysis, profound leukocytosis. 2. Atrial fibrillation. 3. Stroke. 4. Acute on chronic encephalopathy. 5. Prosthetic heart valve per history. 6. Severe protein-calorie malnutrition. PLAN respiratory care oxygen IV antibiotics; follow up cultures ID follow up discussed with and update given confirmed DNR on feeds care noted and reviewed impression, plan, and exam edited and reviewed in detail care discussed with RN Subjective ROS Limited/Unobtainable: Yes Allergies: Coded Allergies: No Known Allergies (Unverified , 03/13/17) Subjective care noted and reviewed was hypotensive Objective Last 24 Hour Vital Signs Date Time Temp Pulse Resp B/P Pulse Ox O2 Delivery O2 Flow Rate FiO2 03/16/17 08:46 75 03/16/17 08:00 97.9 76 17 137/49 93 Nasal Cannula 2.0 76 03/16/17 04:00 75 03/16/17 04:00 98.2 76 22 86/48 99 Nasal Cannula 2.0 76 03/16/17 00:00 75 03/16/17 00:00 98.4 75 22 92/59 98 Nasal Cannula 2.0 03/15/17 23:23 97 Nasal Cannula 2.0 28 03/15/17 23:23 Nasal Cannula 2.0 28 03/15/17 23:22 75 18 Nasal Cannula 2.0 28 03/15/17 20:08 99.7 76 21 78/42 92 Nasal Cannula 03/15/17 20:00 75 03/15/17 16:04 99.1 77 21 79/49 95 Nasal Cannula 2.0 03/15/17 16:00 76 03/15/17 14:09 98.5 03/15/17 12:00 78 03/15/17 12:00 98.5 78 19 91/60 96 Intake and Output 03/15/17 03/16/17 19:00 07:00 Intake Total 920 ml 700 ml Output Total 300 ml Balance 620 ml 700 ml Intake Oral 0 ml Free Water 40 ml IV Total 200 ml Tube Feeding 720 ml 660 ml Output Urine Total 300 ml # Bowel Movements 2 2 Objective GENERAL: The patient is an ill-appearing male, withdrawn. HEENT: Negative. Pupils are very sluggish at present. NECK: Supple. RESPIRATORY: reduced breath sounds and some rhonchi diffusely. NAD CARDIAC: S1 and S2. Regular rhythm. Systolic murmur noted. No rubs or gallops. ABDOMEN: Soft and nontender. G-tube in place. No significant distention. EXTREMITIES: No cyanosis or clubbing. There are contractures. NEUROLOGIC: Unable to assess. withdrawn and nonverbal reviewed and edited Microbiology Date/Time Source Procedure Growth Status 03/13/17 15:15 Blood Blood Culture - Preliminary NO GROWTH AFTER 24 HOURS Resulted 03/13/17 15:10 Blood Blood Culture - Preliminary NO GROWTH AFTER 24 HOURS Resulted 03/14/17 06:00 Wound Gram Stain - Final Resulted 03/14/17 06:00 Wound Wound Culture - Preliminary NO GROWTH AFTER 48 HOURS Resulted 03/13/17 19:30 Stool Clostridium difficile Toxin Assay - Final Complete 03/13/17 15:50 Indwelling Cath Urine Culture - Preliminary NO GROWTH AFTER 24 HOURS Resulted 03/13/17 18:05 Rectum VRE Culture - Final NO VANCOMYCIN RESISTANT ENTEROCOCCUS ... Complete Current Medications Medications (Trade) Dose Ordered Sig/Eddie Route PRN Reason Start Time Stop Time Status Last Admin Dose Admin Acetaminophen 650 mg 650 mg EVERY 4 HOURS PRN GT Mild Pain/Temp > 100.5 03/13/17 23:00 04/12/17 22:59 03/15/17 13:39 Albuterol Sulfate (Proventil) 2.5 mg EVERY 4 HOURS PRN HHN Shortness of Breath 03/13/17 23:00 03/18/17 22:59 03/14/17 20:12 Amiodarone HCl (Cordarone) 50 mg DAILY GT 03/14/17 09:00 04/13/17 08:59 03/16/17 08:41 Carbidopa/Levodopa (Sinemet 25/100) 1 ea FOUR TIMES A DAY GT 03/14/17 09:00 04/13/17 08:59 03/16/17 08:40 Dextrose (Dextrose 50%) STAT PRN IV Hypoglycemia 03/13/17 23:00 04/12/17 22:59 Digoxin (Lanoxin) 0.125 mg DAILY GT 03/14/17 09:00 04/13/17 08:59 03/16/17 08:46 Heparin Sodium (Porcine) (Heparin 5000 units/ml) 5,000 units EVERY 12 HOURS SUBQ 03/14/17 09:00 04/13/17 08:59 03/16/17 08:58 Levothyroxine Sodium (Synthroid) 88 mcg DAILY@0630 GT 03/14/17 06:30 04/13/17 06:29 03/16/17 06:49 Memantine (Namenda) 10 mg BEDTIME GT 03/14/17 21:00 04/13/17 20:59 03/15/17 21:30 Metronidazole (Flagyl) 500 mg Q8HR GT 03/15/17 22:00 03/22/17 21:59 03/16/17 06:30 Montelukast Sodium (Singulair) 10 mg QPM GT 03/14/17 16:30 04/13/17 16:29 03/15/17 15:59 Non-Formulary Medication (Non-Formulary Med) 1 ea DAILY ORAL 03/14/17 09:00 04/13/17 08:59 UNV Ondansetron HCl (Zofran) 4 mg EVERY 6 HOURS PRN IVP Nausea & Vomiting 03/13/17 23:00 04/12/17 22:59 Pramipexole (Mirapex) 0.25 mg BEDTIME GT 03/14/17 21:00 04/13/17 20:59 03/15/17 21:30 Pramipexole (Mirapex) 0.5 mg TID GT 03/14/17 09:00 04/13/17 08:59 03/16/17 08:41 Rivastigmine Tartrate (Exelon) 4.6 mg DAILY TDERMAL 03/14/17 09:00 04/13/17 08:59 03/16/17 08:48 Sodium Chloride (Sodium Chloride 1000ml bag) 1,000 ml @ 100 mls/hr Q10H IV 03/13/17 23:00 04/12/17 22:59 03/16/17 01:00 Vancomycin HCl (Vancomycin) 250 mg QID GT 03/14/17 14:52 03/21/17 13:29 03/16/17 08:40 Vitamin D (Vitamin D) 2,000 intlu DAILY GT 03/14/17 09:00 04/13/17 08:59 03/16/17 08:41 MOMO MOORE Mar 16, 2017 10:11
[2017-03-16 11:17] LABS: MEAN CORPUSCULAR HGB CONC 33.7 G/DL (32.0-36.0); MEAN CORPUSCULAR VOLUME 92 FL (80-99); MEAN PLATELET VOLUME 5.8 FL (6.5-10.1); PLATELET COUNT 469 K/UL (150-450); RED CELL DISTRIBUTION WIDTH 12.6 % (11.6-14.8)
[2017-03-16 11:21] LABS: WHITE BLOOD COUNT 25.6 K/UL (4.8-10.8)
[2017-03-16 11:35] LABS: ALANINE AMINOTRANSFERASE 6 U/L (3-41); ALBUMIN/GLOBULIN RATIO 0.6 (1.0-2.7); ANION GAP 12 (5-15); ASPARTATE AMINO TRANSFERASE 26 U/L (5-40); CALCIUM 7.3 mg/dL (8.6-10.2); CARBON DIOXIDE 26 mEQ/L (20-30); CHLORIDE 99 mEQ/L (98-107); CREATININE 0.8 mg/dL (0.7-1.2); HEMOLYSIS 1; POTASSIUM 3.1 mEQ/L (3.4-4.9); SODIUM 137 mEQ/L (135-145); TOTAL PROTEIN 4.7 g/dL (6.6-8.7)
[2017-03-16 12:00] VITALS: BP 100/51
--- NOTE | 2017-03-16 12:31 | General Progress Note ---
Assessment/Plan Problem List: (1) Sepsis ICD Codes: A41.9 - Sepsis, unspecified organism SNOMED: 73284238 (2) Septic shock ICD Codes: A41.9 - Sepsis, unspecified organism; R65.21 - Severe sepsis with septic shock SNOMED: 85305733 (3) Fever ICD Codes: R50.9 - Fever, unspecified SNOMED: 954347910 (4) Colitis ICD Codes: K52.9 - Noninfective gastroenteritis and colitis, unspecified SNOMED: 44718448 Status: stable, progressing Assessment/Plan cdiff rx gt feeds resp care suctioning replace lytes conservative rx Subjective Constitutional: Reports: malaise, weakness HEENT: Reports: no symptoms Cardiovascular: Reports: no symptoms Respiratory: Reports: no symptoms Gastrointestinal/Abdominal: Reports: diarrhea Genitourinary: Reports: no symptoms Neurologic/Psychiatric: Reports: pre-existing deficit Endocrine: Reports: no symptoms Hematologic/Lymphatic: Reports: anemia Allergies: Coded Allergies: No Known Allergies (Unverified , 03/13/17) All Systems: reviewed and negative except above Subjective no events. family not present. no fevers. no chills. tolerating feeds. still having some diarrhea Objective Last 24 Hour Vital Signs Date Time Temp Pulse Resp B/P Pulse Ox O2 Delivery O2 Flow Rate FiO2 03/16/17 08:46 75 03/16/17 08:00 75 03/16/17 08:00 97.9 76 17 137/49 93 Nasal Cannula 2.0 76 03/16/17 06:53 Nasal Cannula 2.0 03/16/17 06:52 98 Nasal Cannula 2.0 03/16/17 06:51 78 18 Nasal Cannula 2.0 03/16/17 04:00 75 03/16/17 04:00 98.2 76 22 86/48 99 Nasal Cannula 2.0 76 03/16/17 00:00 75 03/16/17 00:00 98.4 75 22 92/59 98 Nasal Cannula 2.0 03/15/17 23:23 97 Nasal Cannula 2.0 28 03/15/17 23:23 Nasal Cannula 2.0 28 03/15/17 23:22 75 18 Nasal Cannula 2.0 28 03/15/17 20:08 99.7 76 21 78/42 92 Nasal Cannula 03/15/17 20:00 75 03/15/17 16:04 99.1 77 21 79/49 95 Nasal Cannula 2.0 03/15/17 16:00 76 03/15/17 14:09 98.5 Intake and Output 03/15/17 03/16/17 19:00 07:00 Intake Total 920 ml 700 ml Output Total 300 ml Balance 620 ml 700 ml Intake Oral 0 ml Free Water 40 ml IV Total 200 ml Tube Feeding 720 ml 660 ml Output Urine Total 300 ml # Bowel Movements 2 2 Laboratory Tests 03/16/17 11:00: White Blood Count 25.6*H, Red Blood Count 3.10L, Hemoglobin 9.6L, Hematocrit 28.5L, Mean Corpuscular Volume 92, Mean Corpuscular Hemoglobin 31.0, Mean Corpuscular Hemoglobin Concent 33.7, Red Cell Distribution Width 12.6, Platelet Count 469H, Mean Platelet Volume 5.8L, Neutrophils (%) (Auto) , Lymphocytes (%) (Auto) , Monocytes (%) (Auto) , Eosinophils (%) (Auto) , Basophils (%) (Auto) , Neutrophils % (Manual) [Pending], Lymphocytes % (Manual) [Pending], Platelet Estimate [Pending], Platelet Morphology [Pending], Sodium Level 137, Potassium Level 3.1L, Chloride Level 99, Carbon Dioxide Level 26, Anion Gap 12, Blood Urea Nitrogen 18, Creatinine 0.8, Estimat Glomerular Filtration Rate , Glucose Level 112H, Calcium Level 7.3L, Total Bilirubin 0.2, Aspartate Amino Transf (AST /SGOT) 26, Alanine Aminotransferase (ALT/SGPT) 6, Alkaline Phosphatase 89, Total Protein 4.7L, Albumin 1.9L, Globulin 2.8, Albumin/Globulin Ratio 0.6L Height (Feet): 5 Height (Inches): 6.00 Weight (Pounds): 192 General Appearance: WD/WN, alert Neck: supple Cardiovascular: normal rate, regular rhythm Respiratory/Chest: lungs clear, normal breath sounds, no respiratory distress, no accessory muscle use Abdomen: normal bowel sounds, non tender, soft, no organomegaly, no mass Edema: no edema noted Arm (L), no edema noted Arm (R), no edema noted Leg (L), no edema noted Leg (R), no edema noted Pedal (L), no edema noted Pedal (R), no edema noted Generalized Neurologic: disoriented, unresponsive SONI EMERSON Mar 16, 2017 12:31
[2017-03-16] MEDS ORDERED: KCl 10% 40mEq/30ml liquid GT ONE (13:00)
[2017-03-16 13:54] LABS: ANISOCYTOSIS 1+; BAND NEUTROPHILS % (MANUAL) 0 % (0-8); BASOPHILS % (MANUAL) 1 % (0-2); EOSINOPHILS % (MANUAL) 0 % (0-3); HYPOCHROMASIA 2+; LYMPHOCYTES % (MANUAL) 11 % (20-45); NEUTROPHILS % (MANUAL) 79 % (45-75); PLATELET ESTIMATE ADEQUATE; PLATELET MORPHOLOGY NORMAL; SPHEROCYTES 1+; TOTAL CELLS COUNTED 100
[2017-03-16] MEDS ORDERED: Sterile Water Irrig 1000ml IRRIG ONE (14:38)
[2017-03-16] MEDS ORDERED: NS 275ml ONE (14:38)
[2017-03-16] MEDS ORDERED: Tubing IV Secondary IV ONE (14:38)
[2017-03-16 16:00] VITALS: BP 111/80
[2017-03-16] MEDS: Albuterol ud Inhalation HHN PRN (16:20)
[2017-03-16] MEDS: Montelukast 10mg tablet GT SCH (17:22)
[2017-03-16 20:00] VITALS: BP 107/64
[2017-03-16] MEDS: Memantine 10mg tab GT SCH (20:49)
[2017-03-17] VITALS: BP 94/60
[2017-03-17] MEDS: Vancomycin oral 125mg/2.5ml GT SCH ×4 (00:18→17:41)
[2017-03-17 04:00] VITALS: BP 102/58
[2017-03-17] MEDS: metroNIDAZOLE 500mg tab GT SCH ×3 (06:11→22:23)
[2017-03-17 08:00] VITALS: BP 124/59
[2017-03-17] MEDS: Amiodarone 200mg tab GT SCH (08:43)
[2017-03-17] MEDS: Pramipexole 0.5mg tab GT SCH ×4 (08:43→22:22)
[2017-03-17] MEDS: Sinemet 25/100 tab GT SCH ×4 (08:43→22:21)
[2017-03-17] MEDS: Vitamin D 1000 IU Tab GT SCH (08:43)
[2017-03-17] MEDS: EXELON 4.6 MG TDERMAL SCH (08:44)
[2017-03-17] MEDS: Digoxin 0.125mg tab GT SCH (08:44)
[2017-03-17] MEDS: Heparin 5000 units/ml inj SUBQ SCH ×2 (08:46→22:29)
--- NOTE | 2017-03-17 09:03 | General Progress Note ---
Assessment/Plan Problem List: (1) Sepsis ICD Codes: A41.9 - Sepsis, unspecified organism SNOMED: 06597828 (2) Septic shock ICD Codes: A41.9 - Sepsis, unspecified organism; R65.21 - Severe sepsis with septic shock SNOMED: 83130691 (3) Fever ICD Codes: R50.9 - Fever, unspecified SNOMED: 851702000 (4) Colitis ICD Codes: K52.9 - Noninfective gastroenteritis and colitis, unspecified SNOMED: 53711030 Status: stable, progressing Assessment/Plan cdiff rx gt feeds resp care suctioning replace lytes conservative rx Subjective ROS Limited/Unobtainable: No Constitutional: Reports: malaise, weakness HEENT: Reports: no symptoms Cardiovascular: Reports: no symptoms Respiratory: Reports: SOB at rest, cough Gastrointestinal/Abdominal: Reports: diarrhea, difficulty swallowing Genitourinary: Reports: no symptoms Neurologic/Psychiatric: Reports: pre-existing deficit Endocrine: Reports: no symptoms Hematologic/Lymphatic: Reports: anemia Allergies: Coded Allergies: No Known Allergies (Unverified , 03/13/17) Subjective no events. present. no fevers. no chills. tolerating feeds. still having diarrhea Objective Last 24 Hour Vital Signs Date Time Temp Pulse Resp B/P Pulse Ox O2 Delivery O2 Flow Rate FiO2 03/17/17 08:44 76 03/17/17 08:00 97.5 75 18 124/59 Nasal Cannula 2.0 86 03/17/17 04:00 76 03/17/17 04:00 98.1 75 20 102/58 98 Nasal Cannula 2.0 03/17/17 00:00 75 03/17/17 00:00 98.0 79 22 94/60 97 Nasal Cannula 2.0 03/16/17 23:46 97 Nasal Cannula 2.0 28 03/16/17 23:46 76 18 Nasal Cannula 2.0 03/16/17 20:00 97.9 77 20 107/64 97 Nasal Cannula 2.0 03/16/17 20:00 78 03/16/17 16:27 84 24 100 Nasal Cannula 2.0 03/16/17 16:17 84 20 99 Nasal Cannula 2.0 03/16/17 16:00 76 03/16/17 16:00 96.5 76 17 111/80 95 Nasal Cannula 2.0 03/16/17 12:00 97.2 105 19 100/51 99 Nasal Cannula 2.0 75 03/16/17 12:00 75 Intake and Output 03/16/17 03/17/17 19:00 07:00 Intake Total 1100 ml 1000 ml Output Total 1150 ml 700 ml Balance -50 ml 300 ml IV Total 1100 ml 1000 ml Output Urine Total 1150 ml 700 ml # Bowel Movements 2 3 Laboratory Tests 03/16/17 11:00: White Blood Count 25.6*H, Red Blood Count 3.10L, Hemoglobin 9.6L, Hematocrit 28.5L, Mean Corpuscular Volume 92, Mean Corpuscular Hemoglobin 31.0, Mean Corpuscular Hemoglobin Concent 33.7, Red Cell Distribution Width 12.6, Platelet Count 469H, Mean Platelet Volume 5.8L, Neutrophils (%) (Auto) , Lymphocytes (%) (Auto) , Monocytes (%) (Auto) , Eosinophils (%) (Auto) , Basophils (%) (Auto) , Differential Total Cells Counted 100, Neutrophils % (Manual) 79H, Lymphocytes % (Manual) 11L, Monocytes % (Manual) 9, Eosinophils % (Manual) 0, Basophils % ( Manual) 1, Band Neutrophils 0, Platelet Estimate Adequate, Platelet Morphology Normal, Hypochromasia 2+, Anisocytosis 1+, Spherocytes 1+, Sodium Level 137, Potassium Level 3.1L, Chloride Level 99, Carbon Dioxide Level 26, Anion Gap 12, Blood Urea Nitrogen 18, Creatinine 0.8, Estimat Glomerular Filtration Rate , Glucose Level 112H, Calcium Level 7.3L, Total Bilirubin 0.2, Aspartate Amino Transf (AST/SGOT) 26, Alanine Aminotransferase (ALT/SGPT) 6, Alkaline Phosphatase 89, Total Protein 4.7L, Albumin 1.9L, Globulin 2.8, Albumin/ Globulin Ratio 0.6L Height (Feet): 5 Height (Inches): 6.00 Weight (Pounds): 192 Objective General Appearance: WD/WN, alert Neck: supple Cardiovascular: normal rate, regular rhythm Respiratory/Chest: lungs clear, normal breath sounds, no respiratory distress, no accessory muscle use Abdomen: normal bowel sounds, non tender, soft, no organomegaly, no mass Edema: no edema noted Arm (L), no edema noted Arm (R), no edema noted Leg (L), no edema noted Leg (R), no edema noted Pedal (L), no edema noted Pedal (R), no edema noted Generalized Neurologic: disoriented, unresponsive SONI EMERSON Mar 17, 2017 09:03
--- NOTE | 2017-03-17 09:41 | Infectious Diseases Prog Note ---
Assessment/Plan Assessment/Plan A. C. difficile Colitis Leukocytosis improving Parkinson disease s/p CVA & left hemiplegia Hypothyroidism P; continue Flagyl & Po Vancomycin Subjective ROS Limited/Unobtainable: Yes Gastrointestinal/Abdominal: Reports: diarrhea Allergies: Coded Allergies: No Known Allergies (Unverified , 03/13/17) Objective Vital Signs Last 24 Hour Vital Signs Date Time Temp Pulse Resp B/P Pulse Ox O2 Delivery O2 Flow Rate FiO2 03/17/17 09:30 Nasal Cannula 2.0 28 03/17/17 09:29 97 Nasal Cannula 2.0 28 03/17/17 09:29 71 20 Nasal Cannula 2.0 03/17/17 08:44 76 03/17/17 08:00 97.5 75 18 124/59 Nasal Cannula 2.0 86 03/17/17 04:00 76 03/17/17 04:00 98.1 75 20 102/58 98 Nasal Cannula 2.0 03/17/17 00:00 75 03/17/17 00:00 98.0 79 22 94/60 97 Nasal Cannula 2.0 03/16/17 23:46 97 Nasal Cannula 2.0 28 03/16/17 23:46 76 18 Nasal Cannula 2.0 03/16/17 20:00 97.9 77 20 107/64 97 Nasal Cannula 2.0 03/16/17 20:00 78 03/16/17 16:27 84 24 100 Nasal Cannula 2.0 03/16/17 16:17 84 20 99 Nasal Cannula 2.0 03/16/17 16:00 76 03/16/17 16:00 96.5 76 17 111/80 95 Nasal Cannula 2.0 03/16/17 12:00 97.2 105 19 100/51 99 Nasal Cannula 2.0 75 03/16/17 12:00 75 Height (Feet): 5 Height (Inches): 6.00 Weight (Pounds): 192 General Appearance: no acute distress HEENT: mucous membranes moist Respiratory/Chest: lungs clear Cardiovascular: normal rate Abdomen: soft, non tender, other - GT feeding Extremities: other - edema of left side Neurologic/Psychiatric: motor weakness, aphasia, other - left hemiplegia Laboratory Tests Test 03/16/17 11:00 White Blood Count 25.6 K/UL (4.8-10.8) *H Red Blood Count 3.10 M/UL (4.70-6.10) L Hemoglobin 9.6 G/DL (14.2-18.0) L Hematocrit 28.5 % (42.0-52.0) L Mean Corpuscular Volume 92 FL (80-99) Mean Corpuscular Hemoglobin 31.0 PG (27.0-31.0) Mean Corpuscular Hemoglobin Concent 33.7 G/DL (32.0-36.0) Red Cell Distribution Width 12.6 % (11.6-14.8) Platelet Count 469 K/UL (150-450) H Mean Platelet Volume 5.8 FL (6.5-10.1) L Neutrophils (%) (Auto) % (45.0-75.0) Lymphocytes (%) (Auto) % (20.0-45.0) Monocytes (%) (Auto) % (1.0-10.0) Eosinophils (%) (Auto) % (0.0-3.0) Basophils (%) (Auto) % (0.0-2.0) Differential Total Cells Counted 100 Neutrophils % (Manual) 79 % (45-75) H Lymphocytes % (Manual) 11 % (20-45) L Monocytes % (Manual) 9 % (1-10) Eosinophils % (Manual) 0 % (0-3) Basophils % (Manual) 1 % (0-2) Band Neutrophils 0 % (0-8) Platelet Estimate Adequate Platelet Morphology Normal Hypochromasia 2+ Anisocytosis 1+ Spherocytes 1+ Sodium Level 137 mEQ/L (135-145) Potassium Level 3.1 mEQ/L (3.4-4.9) L Chloride Level 99 mEQ/L (98-107) Carbon Dioxide Level 26 mEQ/L (20-30) Anion Gap 12 (5-15) Blood Urea Nitrogen 18 mg/dL (7-23) Creatinine 0.8 mg/dL (0.7-1.2) Estimat Glomerular Filtration Rate mL/min (>60) Glucose Level 112 mg/dL (74-106) H Calcium Level 7.3 mg/dL (8.6-10.2) L Total Bilirubin 0.2 mg/dL (0.0-1.2) Aspartate Amino Transf (AST/SGOT) 26 U/L (5-40) Alanine Aminotransferase (ALT/SGPT) 6 U/L (3-41) Alkaline Phosphatase 89 U/L (40-129) Total Protein 4.7 g/dL (6.6-8.7) L Albumin 1.9 g/dL (3.5-5.2) L Globulin 2.8 g/dL Albumin/Globulin Ratio 0.6 (1.0-2.7) L Current Medications Medications (Trade) Dose Ordered Sig/Eddie Route PRN Reason Start Time Stop Time Status Last Admin Dose Admin Acetaminophen 650 mg 650 mg EVERY 4 HOURS PRN GT Mild Pain/Temp > 100.5 03/13/17 23:00 04/12/17 22:59 03/15/17 13:39 Albuterol Sulfate (Proventil) 2.5 mg EVERY 4 HOURS PRN HHN Shortness of Breath 03/13/17 23:00 03/18/17 22:59 03/16/17 16:20 Amiodarone HCl (Cordarone) 50 mg DAILY GT 03/14/17 09:00 04/13/17 08:59 03/17/17 08:43 Carbidopa/Levodopa (Sinemet 25/100) 1 ea FOUR TIMES A DAY GT 03/14/17 09:00 04/13/17 08:59 03/17/17 08:43 Dextrose (Dextrose 50%) STAT PRN IV Hypoglycemia 03/13/17 23:00 04/12/17 22:59 Digoxin (Lanoxin) 0.125 mg DAILY GT 03/14/17 09:00 04/13/17 08:59 03/17/17 08:44 Heparin Sodium (Porcine) (Heparin 5000 units/ml) 5,000 units EVERY 12 HOURS SUBQ 03/14/17 09:00 04/13/17 08:59 03/17/17 08:46 Levothyroxine Sodium (Synthroid) 88 mcg DAILY@0630 GT 03/14/17 06:30 04/13/17 06:29 03/17/17 06:11 Memantine (Namenda) 10 mg BEDTIME GT 03/14/17 21:00 04/13/17 20:59 03/16/17 20:49 Metronidazole (Flagyl) 500 mg Q8HR GT 03/15/17 22:00 03/22/17 21:59 03/17/17 06:11 Montelukast Sodium (Singulair) 10 mg QPM GT 03/14/17 16:30 04/13/17 16:29 03/16/17 17:22 Non-Formulary Medication (Non-Formulary Med) 1 ea DAILY ORAL 03/14/17 09:00 04/13/17 08:59 UNV Ondansetron HCl (Zofran) 4 mg EVERY 6 HOURS PRN IVP Nausea & Vomiting 03/13/17 23:00 04/12/17 22:59 Phenyleph/Shark Oil/Glycerin/ Petrol (Preparation H) 1 applic BID PRN RECTAL HEMORRHOIDS 03/16/17 13:00 04/15/17 12:59 Pramipexole (Mirapex) 0.25 mg BEDTIME GT 03/14/17 21:00 04/13/17 20:59 03/16/17 20:49 Pramipexole (Mirapex) 0.5 mg TID GT 03/14/17 09:00 04/13/17 08:59 03/17/17 08:43 Rivastigmine Tartrate (Exelon) 4.6 mg DAILY TDERMAL 03/14/17 09:00 04/13/17 08:59 03/17/17 08:44 Sodium Chloride (Sodium Chloride 1000ml bag) 1,000 ml @ 100 mls/hr Q10H IV 03/13/17 23:00 04/12/17 22:59 03/17/17 05:23 Vancomycin HCl (Vancomycin) 250 mg QID GT 03/14/17 14:52 03/21/17 13:29 03/17/17 08:43 Vitamin D (Vitamin D) 2,000 intlu DAILY GT 03/14/17 09:00 04/13/17 08:59 03/17/17 08:43 YEE MCRAE Mar 17, 2017 09:41
[2017-03-17] MEDS: Albuterol ud Inhalation HHN PRN ×2 (10:17→22:39)
[2017-03-17 12:00] VITALS: BP 114/80
[2017-03-17 12:43] LABS: ALANINE AMINOTRANSFERASE 9 U/L (3-41); ALBUMIN/GLOBULIN RATIO 0.7 (1.0-2.7); ANION GAP 14 (5-15); ASPARTATE AMINO TRANSFERASE 30 U/L (5-40); CALCIUM 7.6 mg/dL (8.6-10.2); CARBON DIOXIDE 24 mEQ/L (20-30); CHLORIDE 106 mEQ/L (98-107); CREATININE 0.7 mg/dL (0.7-1.2); HEMOLYSIS 0; MAGNESIUM 1.9 mg/dL (1.7-2.5); SODIUM 144 mEQ/L (135-145); TOTAL PROTEIN 4.8 g/dL (6.6-8.7)
[2017-03-17] MEDS ORDERED: KCl 10% 40mEq/30ml liquid GT ONE (14:30)
--- NOTE | 2017-03-17 14:46 | Pulmonology Progress Note ---
Assessment/Plan Assessment/Plan IMPRESSION: 1. Profound sepsis with shock, 2. Atrial fibrillation. 3. Stroke. 4. Acute on chronic encephalopathy. 5. Prosthetic heart valve per history. 6. Severe protein-calorie malnutrition. 7. Cdif 8. Leukocytosis PLAN respiratory care oxygen IV antibiotics; follow up cultures noted on Isolation ID follow up discussed with and update given; considering alternative SNF DNR on feeds care noted and reviewed prognosis poor impression, plan, and exam edited and reviewed in detail care discussed with RN Subjective ROS Limited/Unobtainable: Yes Allergies: Coded Allergies: No Known Allergies (Unverified , 03/13/17) Subjective care noted and reviewed was hypotensive but improved at bedside Objective Last 24 Hour Vital Signs Date Time Temp Pulse Resp B/P Pulse Ox O2 Delivery O2 Flow Rate FiO2 03/17/17 12:00 98.4 86 18 114/80 Nasal Cannula 2.0 96 03/17/17 12:00 83 03/17/17 10:34 79 20 98 Nasal Cannula 2.0 28 03/17/17 10:21 28 03/17/17 10:20 78 22 98 Nasal Cannula 2.0 28 03/17/17 09:30 Nasal Cannula 2.0 28 03/17/17 09:29 97 Nasal Cannula 2.0 28 03/17/17 09:29 71 20 Nasal Cannula 2.0 03/17/17 08:44 76 03/17/17 08:00 75 03/17/17 08:00 97.5 75 18 124/59 Nasal Cannula 2.0 86 03/17/17 04:00 76 03/17/17 04:00 98.1 75 20 102/58 98 Nasal Cannula 2.0 03/17/17 00:00 75 03/17/17 00:00 98.0 79 22 94/60 97 Nasal Cannula 2.0 03/16/17 23:46 97 Nasal Cannula 2.0 28 03/16/17 23:46 76 18 Nasal Cannula 2.0 03/16/17 20:00 97.9 77 20 107/64 97 Nasal Cannula 2.0 03/16/17 20:00 78 03/16/17 16:27 84 24 100 Nasal Cannula 2.0 03/16/17 16:17 84 20 99 Nasal Cannula 2.0 03/16/17 16:00 76 03/16/17 16:00 96.5 76 17 111/80 95 Nasal Cannula 2.0 Intake and Output 03/16/17 03/17/17 19:00 07:00 Intake Total 1910 ml 1000 ml Output Total 1150 ml 700 ml Balance 760 ml 300 ml Free Water 150 ml IV Total 1100 ml 1000 ml Tube Feeding 660 ml Output Urine Total 1150 ml 700 ml # Bowel Movements 2 3 Objective GENERAL: The patient is an ill-appearing male, withdrawn. HEENT: Negative. Pupils are very sluggish at present. NECK: Supple. RESPIRATORY: reduced breath sounds and some rhonchi diffusely. mildly tachypneic CARDIAC: S1 and S2. Regular rhythm. Systolic murmur noted. No rubs or gallops. ABDOMEN: Soft and nontender. G-tube in place. No significant distention. EXTREMITIES: No cyanosis or clubbing. There are contractures. NEUROLOGIC: Unable to assess. withdrawn and nonverbal reviewed and edited Laboratory Tests 03/17/17 11:20: Sodium Level 144, Potassium Level 3.0L, Chloride Level 106, Carbon Dioxide Level 24, Anion Gap 14, Blood Urea Nitrogen 17, Creatinine 0.7, Estimat Glomerular Filtration Rate , Glucose Level 148H, Calcium Level 7.6L, Magnesium Level 1.9, Total Bilirubin 0.2, Aspartate Amino Transf (AST/SGOT) 30, Alanine Aminotransferase (ALT/SGPT) 9, Alkaline Phosphatase 107, Total Protein 4.8L, Albumin 2.0L, Globulin 2.8, Albumin/Globulin Ratio 0.7L Current Medications Medications (Trade) Dose Ordered Sig/Eddie Route PRN Reason Start Time Stop Time Status Last Admin Dose Admin Acetaminophen 650 mg 650 mg EVERY 4 HOURS PRN GT Mild Pain/Temp > 100.5 03/13/17 23:00 04/12/17 22:59 03/15/17 13:39 Albuterol Sulfate (Proventil) 2.5 mg EVERY 4 HOURS PRN HHN Shortness of Breath 03/13/17 23:00 03/18/17 22:59 03/17/17 10:17 Amiodarone HCl (Cordarone) 50 mg DAILY GT 03/14/17 09:00 04/13/17 08:59 03/17/17 08:43 Carbidopa/Levodopa (Sinemet 25/100) 1 ea FOUR TIMES A DAY GT 03/14/17 09:00 04/13/17 08:59 03/17/17 14:15 Dextrose (Dextrose 50%) STAT PRN IV Hypoglycemia 03/13/17 23:00 04/12/17 22:59 Digoxin (Lanoxin) 0.125 mg DAILY GT 03/14/17 09:00 04/13/17 08:59 03/17/17 08:44 Heparin Sodium (Porcine) (Heparin 5000 units/ml) 5,000 units EVERY 12 HOURS SUBQ 03/14/17 09:00 04/13/17 08:59 03/17/17 08:46 Levothyroxine Sodium (Synthroid) 88 mcg DAILY@0630 GT 03/14/17 06:30 04/13/17 06:29 03/17/17 06:11 Memantine (Namenda) 10 mg BEDTIME GT 03/14/17 21:00 04/13/17 20:59 03/16/17 20:49 Metronidazole (Flagyl) 500 mg Q8HR GT 03/15/17 22:00 03/22/17 21:59 03/17/17 14:15 Montelukast Sodium (Singulair) 10 mg QPM GT 03/14/17 16:30 04/13/17 16:29 03/16/17 17:22 Ondansetron HCl (Zofran) 4 mg EVERY 6 HOURS PRN IVP Nausea & Vomiting 03/13/17 23:00 04/12/17 22:59 Patient Own Medication (Patient's Own Med) 1 ea DAILY ORAL 03/17/17 16:00 04/16/17 15:59 Phenyleph/Shark Oil/Glycerin/ Petrol (Preparation H) 1 applic BID PRN RECTAL HEMORRHOIDS 03/16/17 13:00 04/15/17 12:59 Pramipexole (Mirapex) 0.25 mg BEDTIME GT 03/14/17 21:00 04/13/17 20:59 03/16/17 20:49 Pramipexole (Mirapex) 0.5 mg TID GT 03/14/17 09:00 04/13/17 08:59 03/17/17 14:15 Rivastigmine Tartrate (Exelon) 4.6 mg DAILY TDERMAL 03/14/17 09:00 04/13/17 08:59 03/17/17 08:44 Sodium Chloride (Sodium Chloride 1000ml bag) 1,000 ml @ 100 mls/hr Q10H IV 03/13/17 23:00 04/12/17 22:59 03/17/17 05:23 Vancomycin HCl (Vancomycin) 250 mg QID GT 03/14/17 14:52 03/21/17 13:29 03/17/17 14:14 Vitamin D (Vitamin D) 2,000 intlu DAILY GT 03/14/17 09:00 04/13/17 08:59 03/17/17 08:43 MOMO MOORE Mar 17, 2017 14:46
[2017-03-17] MEDS: Montelukast 10mg tablet GT SCH (15:59)
[2017-03-17 16:00] VITALS: BP 101/51
[2017-03-17] MEDS ORDERED: DALIRESP 500 MCG ORAL SCH (16:00)
[2017-03-17] MEDS: Prep H Ointment 57gm RECTAL PRN (16:01)
[2017-03-17] MEDS: Ascorbic Acid 500mg tab GT SCH (17:41)
[2017-03-17 20:00] VITALS: BP 104/45
[2017-03-17] MEDS: Memantine 10mg tab GT SCH (22:22)
[2017-03-18] VITALS: BP 124/55
[2017-03-18] MEDS: Vancomycin oral 125mg/2.5ml GT SCH ×5 (00:34→21:28)
[2017-03-18 04:00] VITALS: BP 145/62
[2017-03-18] MEDS: metroNIDAZOLE 500mg tab GT SCH ×3 (06:19→21:30)
[2017-03-18 07:54] VITALS: BP 113/63
--- NOTE | 2017-03-18 08:45 | Pulmonology Progress Note ---
Assessment/Plan Assessment/Plan IMPRESSION: 1. Profound sepsis with shock, 2. Atrial fibrillation. 3. Stroke. 4. Acute on chronic encephalopathy. 5. Prosthetic heart valve per history. 6. Severe protein-calorie malnutrition. 7. Cdif 8. Leukocytosis PLAN respiratory care oxygen IV antibiotics; ID recommendations noted on Isolation ID follow up discussed with and update given; considering alternative SNF as per DNR on feeds care noted and reviewed prognosis poor for any meaningful recovery impression, plan, and exam edited and reviewed in detail care discussed with RN Subjective ROS Limited/Unobtainable: Yes Allergies: Coded Allergies: No Known Allergies (Unverified , 03/13/17) Subjective care noted and reviewed hemodynamics better at bedside Objective Last 24 Hour Vital Signs Date Time Temp Pulse Resp B/P Pulse Ox O2 Delivery O2 Flow Rate FiO2 03/18/17 07:54 98.8 75 22 113/63 98 Nasal Cannula 2.0 03/18/17 07:51 Nasal Cannula 2.0 28 03/18/17 07:51 97 Nasal Cannula 2.0 03/18/17 07:50 76 20 Nasal Cannula 2.0 28 03/18/17 04:00 77 03/18/17 04:00 97.8 78 19 145/62 98 Nasal Cannula 2.0 03/18/17 00:00 84 03/18/17 00:00 97.8 81 21 124/55 96 Nasal Cannula 2.0 03/17/17 23:15 77 22 98 Nasal Cannula 2.0 28 03/17/17 22:41 28 03/17/17 22:40 74 22 98 Nasal Cannula 2.0 03/17/17 22:40 98 Nasal Cannula 2.0 28 03/17/17 22:40 Nasal Cannula 2.0 28 03/17/17 22:39 74 22 Nasal Cannula 2.0 28 03/17/17 20:00 75 03/17/17 20:00 97.8 76 19 104/45 97 Nasal Cannula 2.0 03/17/17 16:00 75 18 101/51 Nasal Cannula 2.0 96 03/17/17 16:00 75 03/17/17 12:00 98.4 86 18 114/80 Nasal Cannula 2.0 96 03/17/17 12:00 83 03/17/17 10:34 79 20 98 Nasal Cannula 2.0 28 03/17/17 10:21 28 03/17/17 10:20 78 22 98 Nasal Cannula 2.0 28 03/17/17 09:30 Nasal Cannula 2.0 28 03/17/17 09:29 97 Nasal Cannula 2.0 28 03/17/17 09:29 71 20 Nasal Cannula 2.0 03/17/17 08:44 76 Intake and Output 03/17/17 03/18/17 19:00 07:00 Intake Total 1750 ml 160 ml Output Total 700 ml Balance 1750 ml -540 ml Free Water 150 ml 100 ml IV Total 1000 ml Tube Feeding 600 ml 60 ml Output Urine Total 700 ml # Bowel Movements 3 3 Objective GENERAL: The patient is an ill-appearing male, withdrawn. nonverbal HEENT: Negative. Pupils are very sluggish at present. NECK: Supple. RESPIRATORY: reduced breath sounds and some rhonchi diffusely. mildly tachypneic CARDIAC: S1 and S2. Regular rhythm. Systolic murmur noted. No rubs or gallops. ABDOMEN: Soft and nontender. G-tube in place. No significant distention. EXTREMITIES: No cyanosis or clubbing. There are contractures. NEUROLOGIC: Unable to assess. withdrawn and nonverbal reviewed and edited Laboratory Tests 03/17/17 11:20: Sodium Level 144, Potassium Level 3.0L, Chloride Level 106, Carbon Dioxide Level 24, Anion Gap 14, Blood Urea Nitrogen 17, Creatinine 0.7, Estimat Glomerular Filtration Rate , Glucose Level 148H, Calcium Level 7.6L, Magnesium Level 1.9, Total Bilirubin 0.2, Aspartate Amino Transf (AST/SGOT) 30, Alanine Aminotransferase (ALT/SGPT) 9, Alkaline Phosphatase 107, Total Protein 4.8L, Albumin 2.0L, Globulin 2.8, Albumin/Globulin Ratio 0.7L Current Medications Medications (Trade) Dose Ordered Sig/Eddie Route PRN Reason Start Time Stop Time Status Last Admin Dose Admin Acetaminophen 650 mg 650 mg EVERY 4 HOURS PRN GT Mild Pain/Temp > 100.5 03/13/17 23:00 04/12/17 22:59 03/15/17 13:39 Albuterol Sulfate (Proventil) 2.5 mg EVERY 4 HOURS PRN HHN Shortness of Breath 03/13/17 23:00 03/18/17 22:59 03/17/17 22:39 Amiodarone HCl (Cordarone) 50 mg DAILY GT 03/14/17 09:00 04/13/17 08:59 03/17/17 08:43 Ascorbic Acid (Vitamin C) 500 mg DAILY GT 03/17/17 17:00 04/16/17 16:59 03/17/17 17:41 Carbidopa/Levodopa (Sinemet 25/100) 1 ea FOUR TIMES A DAY GT 03/14/17 09:00 04/13/17 08:59 03/17/17 22:21 Dextrose (Dextrose 50%) STAT PRN IV Hypoglycemia 03/13/17 23:00 04/12/17 22:59 Digoxin (Lanoxin) 0.125 mg DAILY GT 03/14/17 09:00 04/13/17 08:59 03/17/17 08:44 Heparin Sodium (Porcine) (Heparin 5000 units/ml) 5,000 units EVERY 12 HOURS SUBQ 03/14/17 09:00 04/13/17 08:59 03/17/17 22:29 Levothyroxine Sodium (Synthroid) 88 mcg DAILY@0630 GT 03/14/17 06:30 04/13/17 06:29 03/18/17 06:19 Memantine (Namenda) 10 mg BEDTIME GT 03/14/17 21:00 04/13/17 20:59 03/17/17 22:22 Metronidazole (Flagyl) 500 mg Q8HR GT 03/15/17 22:00 03/22/17 21:59 03/18/17 06:19 Montelukast Sodium (Singulair) 10 mg QPM GT 03/14/17 16:30 04/13/17 16:29 03/17/17 15:59 Ondansetron HCl (Zofran) 4 mg EVERY 6 HOURS PRN IVP Nausea & Vomiting 03/13/17 23:00 04/12/17 22:59 Patient Own Medication (Patient's Own Med) 1 ea DAILY ORAL 03/18/17 09:00 04/17/17 08:59 Phenyleph/Shark Oil/Glycerin/ Petrol (Preparation H) 1 applic BID PRN RECTAL HEMORRHOIDS 03/16/17 13:00 04/15/17 12:59 03/17/17 16:01 Pramipexole (Mirapex) 0.25 mg BEDTIME GT 03/14/17 21:00 04/13/17 20:59 03/17/17 22:22 Pramipexole (Mirapex) 0.5 mg TID GT 03/14/17 09:00 04/13/17 08:59 03/17/17 17:42 Rivastigmine Tartrate (Exelon) 4.6 mg DAILY TDERMAL 03/14/17 09:00 04/13/17 08:59 03/17/17 08:44 Sodium Chloride (Sodium Chloride 1000ml bag) 1,000 ml @ 100 mls/hr Q10H IV 03/13/17 23:00 04/12/17 22:59 03/18/17 03:50 Vancomycin HCl (Vancomycin) 250 mg QID GT 03/14/17 14:52 03/21/17 13:29 03/18/17 00:34 Vitamin D (Vitamin D) 2,000 intlu DAILY GT 03/14/17 09:00 04/13/17 08:59 03/17/17 08:43 MOMO MOORE Mar 18, 2017 08:45
[2017-03-18] MEDS: Vitamin D 1000 IU Tab GT SCH (09:04)
[2017-03-18] MEDS: Digoxin 0.125mg tab GT SCH (09:04)
[2017-03-18] MEDS: Sinemet 25/100 tab GT SCH ×4 (09:04→21:27)
[2017-03-18] MEDS: Ascorbic Acid 500mg tab GT SCH (09:05)
[2017-03-18] MEDS: DALIRESP 500 MCG ORAL SCH (09:05)
[2017-03-18] MEDS: Amiodarone 200mg tab GT SCH (09:06)
[2017-03-18] MEDS: EXELON 4.6 MG TDERMAL SCH (09:06)
[2017-03-18] MEDS: Pramipexole 0.5mg tab GT SCH ×4 (09:09→21:27)
[2017-03-18] MEDS: Heparin 5000 units/ml inj SUBQ SCH ×2 (09:12→21:29)
--- NOTE | 2017-03-18 10:01 | Infectious Diseases Prog Note ---
Assessment/Plan Assessment/Plan A. C. difficile Colitis Leukocytosis improving Parkinson disease s/p CVA & left hemiplegia Hypothyroidism P; continue Flagyl & Po Vancomycin F/U CBC Subjective ROS Limited/Unobtainable: Yes Allergies: Coded Allergies: No Known Allergies (Unverified , 03/13/17) Objective Vital Signs Last 24 Hour Vital Signs Date Time Temp Pulse Resp B/P Pulse Ox O2 Delivery O2 Flow Rate FiO2 03/18/17 09:04 75 03/18/17 08:00 76 03/18/17 07:54 98.8 75 22 113/63 98 Nasal Cannula 2.0 03/18/17 07:51 Nasal Cannula 2.0 28 03/18/17 07:51 97 Nasal Cannula 2.0 28 03/18/17 07:50 76 20 Nasal Cannula 2.0 28 03/18/17 04:00 77 03/18/17 04:00 97.8 78 19 145/62 98 Nasal Cannula 2.0 03/18/17 00:00 84 03/18/17 00:00 97.8 81 21 124/55 96 Nasal Cannula 2.0 03/17/17 23:15 77 22 98 Nasal Cannula 2.0 28 03/17/17 22:41 28 03/17/17 22:40 74 22 98 Nasal Cannula 2.0 28 03/17/17 22:40 98 Nasal Cannula 2.0 28 03/17/17 22:40 Nasal Cannula 2.0 28 03/17/17 22:39 74 22 Nasal Cannula 2.0 28 03/17/17 20:00 75 03/17/17 20:00 97.8 76 19 104/45 97 Nasal Cannula 2.0 03/17/17 16:00 75 18 101/51 Nasal Cannula 2.0 96 03/17/17 16:00 75 03/17/17 12:00 98.4 86 18 114/80 Nasal Cannula 2.0 96 03/17/17 12:00 83 03/17/17 10:34 79 20 98 Nasal Cannula 2.0 28 03/17/17 10:21 28 03/17/17 10:20 78 22 98 Nasal Cannula 2.0 28 Height (Feet): 5 Height (Inches): 6.00 Weight (Pounds): 192 General Appearance: no acute distress HEENT: mucous membranes moist Respiratory/Chest: lungs clear, other - O2 by cannula Cardiovascular: normal rate Abdomen: soft, non tender, other - Gt feeding Extremities: other Neurologic/Psychiatric: aphasia Laboratory Tests Test 03/17/17 11:20 Sodium Level 144 mEQ/L (135-145) Potassium Level 3.0 mEQ/L (3.4-4.9) L Chloride Level 106 mEQ/L (98-107) Carbon Dioxide Level 24 mEQ/L (20-30) Anion Gap 14 (5-15) Blood Urea Nitrogen 17 mg/dL (7-23) Creatinine 0.7 mg/dL (0.7-1.2) Estimat Glomerular Filtration Rate mL/min (>60) Glucose Level 148 mg/dL (74-106) H Calcium Level 7.6 mg/dL (8.6-10.2) L Magnesium Level 1.9 mg/dL (1.7-2.5) Total Bilirubin 0.2 mg/dL (0.0-1.2) Aspartate Amino Transf (AST/SGOT) 30 U/L (5-40) Alanine Aminotransferase (ALT/SGPT) 9 U/L (3-41) Alkaline Phosphatase 107 U/L (40-129) Total Protein 4.8 g/dL (6.6-8.7) L Albumin 2.0 g/dL (3.5-5.2) L Globulin 2.8 g/dL Albumin/Globulin Ratio 0.7 (1.0-2.7) L Current Medications Medications (Trade) Dose Ordered Sig/Eddie Route PRN Reason Start Time Stop Time Status Last Admin Dose Admin Acetaminophen 650 mg 650 mg EVERY 4 HOURS PRN GT Mild Pain/Temp > 100.5 03/13/17 23:00 04/12/17 22:59 03/15/17 13:39 Albuterol Sulfate (Proventil) 2.5 mg EVERY 4 HOURS PRN HHN Shortness of Breath 03/13/17 23:00 03/18/17 22:59 03/17/17 22:39 Amiodarone HCl (Cordarone) 50 mg DAILY GT 03/14/17 09:00 04/13/17 08:59 03/18/17 09:06 Ascorbic Acid (Vitamin C) 500 mg DAILY GT 03/17/17 17:00 04/16/17 16:59 03/18/17 09:05 Carbidopa/Levodopa (Sinemet 25/100) 1 ea FOUR TIMES A DAY GT 03/14/17 09:00 04/13/17 08:59 03/18/17 09:04 Dextrose (Dextrose 50%) STAT PRN IV Hypoglycemia 03/13/17 23:00 04/12/17 22:59 Digoxin (Lanoxin) 0.125 mg DAILY GT 03/14/17 09:00 04/13/17 08:59 03/18/17 09:04 Heparin Sodium (Porcine) (Heparin 5000 units/ml) 5,000 units EVERY 12 HOURS SUBQ 03/14/17 09:00 04/13/17 08:59 03/18/17 09:12 Levothyroxine Sodium (Synthroid) 88 mcg DAILY@0630 GT 03/14/17 06:30 04/13/17 06:29 03/18/17 06:19 Memantine (Namenda) 10 mg BEDTIME GT 03/14/17 21:00 04/13/17 20:59 03/17/17 22:22 Metronidazole (Flagyl) 500 mg Q8HR GT 03/15/17 22:00 03/22/17 21:59 03/18/17 06:19 Montelukast Sodium (Singulair) 10 mg QPM GT 03/14/17 16:30 04/13/17 16:29 03/17/17 15:59 Ondansetron HCl (Zofran) 4 mg EVERY 6 HOURS PRN IVP Nausea & Vomiting 03/13/17 23:00 04/12/17 22:59 Patient Own Medication (Patient's Own Med) 1 ea DAILY ORAL 03/18/17 09:00 04/17/17 08:59 03/18/17 09:05 Phenyleph/Shark Oil/Glycerin/ Petrol (Preparation H) 1 applic BID PRN RECTAL HEMORRHOIDS 03/16/17 13:00 04/15/17 12:59 03/17/17 16:01 Pramipexole (Mirapex) 0.25 mg BEDTIME GT 03/14/17 21:00 04/13/17 20:59 03/17/17 22:22 Pramipexole (Mirapex) 0.5 mg TID GT 03/14/17 09:00 04/13/17 08:59 03/18/17 09:09 Rivastigmine Tartrate (Exelon) 4.6 mg DAILY TDERMAL 03/14/17 09:00 04/13/17 08:59 03/18/17 09:06 Sodium Chloride (Sodium Chloride 1000ml bag) 1,000 ml @ 100 mls/hr Q10H IV 03/13/17 23:00 04/12/17 22:59 03/18/17 03:50 Vancomycin HCl (Vancomycin) 250 mg QID GT 03/14/17 14:52 03/21/17 13:29 03/18/17 09:08 Vitamin D (Vitamin D) 2,000 intlu DAILY GT 03/14/17 09:00 04/13/17 08:59 03/18/17 09:04 YEE MCRAE Mar 18, 2017 10:01
[2017-03-18 10:58] LABS: MEAN CORPUSCULAR HEMOGLOBIN 30.7 PG (27.0-31.0); MEAN CORPUSCULAR HGB CONC 33.9 G/DL (32.0-36.0); MEAN CORPUSCULAR VOLUME 91 FL (80-99); MEAN PLATELET VOLUME 5.7 FL (6.5-10.1); PLATELET COUNT 279 K/UL (150-450); RED BLOOD COUNT 3.06 M/UL (4.70-6.10); RED CELL DISTRIBUTION WIDTH 13.3 % (11.6-14.8); WHITE BLOOD COUNT 18.7 K/UL (4.8-10.8)
[2017-03-18 11:57] VITALS: BP 108/58
[2017-03-18] MEDS: Albuterol ud Inhalation HHN PRN (12:03)
[2017-03-18 12:11] LABS: BAND NEUTROPHILS % (MANUAL) 0 % (0-8); BASOPHILS % (MANUAL) 0 % (0-2); EOSINOPHILS % (MANUAL) 1 % (0-3); LYMPHOCYTES % (MANUAL) 13 % (20-45); NEUTROPHILS % (MANUAL) 76 % (45-75); PLATELET ESTIMATE ADEQUATE; PLATELET MORPHOLOGY NORMAL; TOTAL CELLS COUNTED 100
[2017-03-18 12:12] LABS: ANISOCYTOSIS 1+; HYPOCHROMASIA 1+
[2017-03-18] MEDS ORDERED: Sterile Water Irrig 1000ml IRRIG ONE (13:47)
[2017-03-18] MEDS: Montelukast 10mg tablet GT SCH (15:48)
[2017-03-18 15:59] VITALS: BP 117/55
[2017-03-18 20:00] VITALS: BP 105/45
[2017-03-18] MEDS: Memantine 10mg tab GT SCH (21:27)
[2017-03-19] VITALS: BP 102/52
[2017-03-19 04:00] VITALS: BP 127/56
[2017-03-19] MEDS: metroNIDAZOLE 500mg tab GT SCH (06:23)
[2017-03-19 08:05] VITALS: BP 111/66
--- NOTE | 2017-03-19 08:09 | Pulmonology Progress Note ---
Assessment/Plan Assessment/Plan IMPRESSION: 1. Profound sepsis with shock, 2. Atrial fibrillation. 3. Stroke. 4. Acute on chronic encephalopathy. 5. Prosthetic heart valve per history. 6. Severe protein-calorie malnutrition. 7. Cdif 8. Leukocytosis PLAN respiratory care oxygen antibiotics; ID recommendations noted on Isolation ID follow up considering alternative SNF as per DNR on feeds care noted and reviewed prognosis poor for any meaningful recovery CM to assist impression, plan, and exam edited and reviewed in detail care discussed with RN Subjective ROS Limited/Unobtainable: Yes Allergies: Coded Allergies: No Known Allergies (Unverified , 03/13/17) Subjective care noted and reviewed hemodynamics better at bedside Objective Last 24 Hour Vital Signs Date Time Temp Pulse Resp B/P Pulse Ox O2 Delivery O2 Flow Rate FiO2 03/19/17 08:05 100.4 77 20 111/66 99 Nasal Cannula 2.0 03/19/17 04:00 98.2 76 20 127/56 97 Nasal Cannula 2.0 03/19/17 04:00 77 03/19/17 00:00 98.8 75 22 102/52 97 Nasal Cannula 2.0 03/19/17 00:00 75 03/18/17 20:00 99.5 76 19 105/45 97 Nasal Cannula 2.0 03/18/17 20:00 77 03/18/17 19:30 74 16 Nasal Cannula 2.0 28 03/18/17 19:30 95 Nasal Cannula 2.0 28 03/18/17 19:30 Nasal Cannula 2.0 28 03/18/17 16:00 81 03/18/17 15:59 99.7 87 20 117/55 96 Nasal Cannula 2.0 03/18/17 12:22 80 24 Nasal Cannula 2.0 28 03/18/17 12:00 76 24 97 Nasal Cannula 2.0 28 03/18/17 12:00 83 03/18/17 11:57 100.0 80 20 108/58 97 Nasal Cannula 2.0 03/18/17 09:04 75 Intake and Output 03/18/17 03/19/17 19:00 07:00 Intake Total 2000 ml 1900 ml Output Total 250 ml 650 ml Balance 1750 ml 1250 ml Free Water 80 ml 40 ml IV Total 1200 ml 1200 ml Tube Feeding 720 ml 660 ml Output Urine Total 250 ml 650 ml # Bowel Movements 3 Objective GENERAL: The patient is an ill-appearing male, withdrawn. nonverbal HEENT: Negative. Pupils are very sluggish at present. NECK: Supple. RESPIRATORY: reduced breath sounds and occasional rhonchi. CARDIAC: S1 and S2. Regular rhythm. Systolic murmur noted. No rubs or gallops. ABDOMEN: Soft and nontender. G-tube in place. No significant distention. EXTREMITIES: No cyanosis or clubbing. There are contractures. NEUROLOGIC: Unable to assess. withdrawn and nonverbal reviewed and edited Laboratory Tests 03/18/17 10:50: White Blood Count 18.7H, Red Blood Count 3.06L, Hemoglobin 9.4L, Hematocrit 27.7L, Mean Corpuscular Volume 91, Mean Corpuscular Hemoglobin 30.7, Mean Corpuscular Hemoglobin Concent 33.9, Red Cell Distribution Width 13.3, Platelet Count 279, Mean Platelet Volume 5.7L, Neutrophils (%) (Auto) , Lymphocytes (%) ( Auto) , Monocytes (%) (Auto) , Eosinophils (%) (Auto) , Basophils (%) (Auto) , Differential Total Cells Counted 100, Neutrophils % (Manual) 76H, Lymphocytes % (Manual) 13L, Monocytes % (Manual) 10, Eosinophils % (Manual) 1, Basophils % ( Manual) 0, Band Neutrophils 0, Platelet Estimate Adequate, Platelet Morphology Normal, Hypochromasia 1+, Anisocytosis 1+ Current Medications Medications (Trade) Dose Ordered Sig/Eddie Route PRN Reason Start Time Stop Time Status Last Admin Dose Admin Acetaminophen 650 mg 650 mg EVERY 4 HOURS PRN GT Mild Pain/Temp > 100.5 03/13/17 23:00 04/12/17 22:59 03/15/17 13:39 Amiodarone HCl (Cordarone) 50 mg DAILY GT 03/14/17 09:00 04/13/17 08:59 03/18/17 09:06 Ascorbic Acid (Vitamin C) 500 mg DAILY GT 03/17/17 17:00 04/16/17 16:59 03/18/17 09:05 Carbidopa/Levodopa (Sinemet 25/100) 1 ea FOUR TIMES A DAY GT 03/14/17 09:00 04/13/17 08:59 03/18/17 21:27 Dextrose (Dextrose 50%) STAT PRN IV Hypoglycemia 03/13/17 23:00 04/12/17 22:59 Digoxin (Lanoxin) 0.125 mg DAILY GT 03/14/17 09:00 04/13/17 08:59 03/18/17 09:04 Heparin Sodium (Porcine) (Heparin 5000 units/ml) 5,000 units EVERY 12 HOURS SUBQ 03/14/17 09:00 04/13/17 08:59 03/18/17 21:29 Levothyroxine Sodium (Synthroid) 88 mcg DAILY@0630 GT 03/14/17 06:30 04/13/17 06:29 03/19/17 06:22 Memantine (Namenda) 10 mg BEDTIME GT 03/14/17 21:00 04/13/17 20:59 03/18/17 21:27 Metronidazole (Flagyl) 500 mg Q8HR GT 03/15/17 22:00 03/22/17 21:59 03/19/17 06:23 Montelukast Sodium (Singulair) 10 mg QPM GT 03/14/17 16:30 04/13/17 16:29 03/18/17 15:48 Ondansetron HCl (Zofran) 4 mg EVERY 6 HOURS PRN IVP Nausea & Vomiting 03/13/17 23:00 04/12/17 22:59 Patient Own Medication (Patient's Own Med) 1 ea DAILY ORAL 03/18/17 09:00 04/17/17 08:59 03/18/17 09:05 Phenyleph/Shark Oil/Glycerin/ Petrol (Preparation H) 1 applic BID PRN RECTAL HEMORRHOIDS 03/16/17 13:00 04/15/17 12:59 03/17/17 16:01 Pramipexole (Mirapex) 0.25 mg BEDTIME GT 03/14/17 21:00 04/13/17 20:59 03/18/17 21:27 Pramipexole (Mirapex) 0.5 mg TID GT 03/14/17 09:00 04/13/17 08:59 03/18/17 18:14 Rivastigmine Tartrate (Exelon) 4.6 mg DAILY TDERMAL 03/14/17 09:00 04/13/17 08:59 03/18/17 09:06 Sodium Chloride (Sodium Chloride 1000ml bag) 1,000 ml @ 100 mls/hr Q10H IV 03/13/17 23:00 04/12/17 22:59 03/18/17 23:23 Vancomycin HCl (Vancomycin) 250 mg QID GT 03/14/17 14:52 03/21/17 13:29 03/18/17 21:28 Vitamin D (Vitamin D) 2,000 intlu DAILY GT 03/14/17 09:00 04/13/17 08:59 03/18/17 09:04 MOMO MOORE Mar 19, 2017 08:09
[2017-03-19] MEDS: Vancomycin oral 125mg/2.5ml GT SCH ×5 (09:00→22:58)
[2017-03-19] MEDS: DALIRESP 500 MCG ORAL SCH (09:00)
[2017-03-19] MEDS: Pramipexole 0.5mg tab GT SCH ×4 (09:00→22:54)
[2017-03-19] MEDS: EXELON 4.6 MG TDERMAL SCH (09:00)
[2017-03-19] MEDS: Sinemet 25/100 tab GT SCH ×4 (09:00→22:54)
[2017-03-19] MEDS: Heparin 5000 units/ml inj SUBQ SCH ×2 (09:00→22:59)
[2017-03-19] MEDS: Ascorbic Acid 500mg tab GT SCH (09:00)
[2017-03-19] MEDS: Amiodarone 200mg tab GT SCH (09:00)
[2017-03-19] MEDS: Vitamin D 1000 IU Tab GT SCH (09:00)
[2017-03-19] MEDS: Digoxin 0.125mg tab GT SCH (10:03)
[2017-03-19] MEDS: Albuterol ud Inhalation HHN PRN ×2 (10:04→17:11)
[2017-03-19 12:17] VITALS: BP 97/53
--- NOTE | 2017-03-19 12:24 | Infectious Diseases Prog Note ---
Assessment/Plan Assessment/Plan antibiotics : flagyl, po vancomycin A 1. c.diff colitis 2. leucocytosis improving 3. HTN 4. Parkinsons disease P 1. continue po vancomycin 8 more days 2. d/c flagyl 3. will follow up cultures Subjective ROS Limited/Unobtainable: Yes Allergies: Coded Allergies: No Known Allergies (Unverified , 03/13/17) Objective Vital Signs Last 24 Hour Vital Signs Date Time Temp Pulse Resp B/P Pulse Ox O2 Delivery O2 Flow Rate FiO2 03/19/17 12:17 98.4 86 20 97/53 97 Nasal Cannula 2.0 03/19/17 10:09 75 20 Nasal Cannula 2.0 28 03/19/17 10:03 77 03/19/17 09:59 74 20 99 Nasal Cannula 2.0 28 03/19/17 08:05 100.4 77 20 111/66 99 Nasal Cannula 2.0 03/19/17 08:00 77 03/19/17 07:33 74 16 Nasal Cannula 2.0 28 03/19/17 07:33 Nasal Cannula 2.0 28 03/19/17 07:33 99 Nasal Cannula 2.0 28 03/19/17 04:00 98.2 76 20 127/56 97 Nasal Cannula 2.0 03/19/17 04:00 77 03/19/17 00:00 98.8 75 22 102/52 97 Nasal Cannula 2.0 03/19/17 00:00 75 03/18/17 20:00 99.5 76 19 105/45 97 Nasal Cannula 2.0 03/18/17 20:00 77 03/18/17 19:30 74 16 Nasal Cannula 2.0 28 03/18/17 19:30 95 Nasal Cannula 2.0 28 03/18/17 19:30 Nasal Cannula 2.0 28 03/18/17 16:00 81 03/18/17 15:59 99.7 87 20 117/55 96 Nasal Cannula 2.0 Height (Feet): 5 Height (Inches): 6.00 Weight (Pounds): 192 Respiratory/Chest: lungs clear Cardiovascular: normal rate, regular rhythm, no gallop/murmur Abdomen: soft, non tender, other - GT Extremities: other - + edema KAUSHAL MAY Mar 19, 2017 12:24
[2017-03-19] MEDS: Montelukast 10mg tablet GT SCH (15:49)
[2017-03-19 16:03] VITALS: BP 111/57
[2017-03-19 20:00] VITALS: BP_SYST 101; BP_SYST 140; BP_DIAS 39; BP_DIAS 65
[2017-03-19] MEDS: Memantine 10mg tab GT SCH (22:53)
--- NOTE | 2017-03-19 23:58 | Wound Care Consultation ---
Wound Assessment Wound Assessment : Wound Present on Admission: Yes New Wound: No Status Change of Wound: No Wound Location Body Site Modif: right Wound Location Body Site: heel Wound Type: pressure ulcer Lorie Test: Does not Lorie Pressure Ulcer Stage: IV/unstageable Wound Thickness: Full Thickness Wound Length: 5.5 Wound Width: 4.0 Wound Depth: utd Percent of Wound Bed Yellow/Wh: 100 Wound Drainage Description: Serosanguineous Wound Drainage Amount: Scant Wound Drainage Odor: None/Absent Tissue Surrounding Wound: Erythemic Wound General Appearance: Reddened, Draining, Necrotic Wound Comment #1 Reassessment done and noted Right heel DTI revealed as unstageable pressure ulcer Recommendation -Right heel Cleanse with saline, pat dry, apply skin barrier film to periwound area, apply Therahoney gel to wound bed, cover with Biatain silicone daily and PRN soiled/ dislodged -Cont pervious recommendations and treatment -Assess and f/u accordingly for any changes LUCI BURLESON RN Mar 19, 2017 23:58
[2017-03-20] VITALS: BP 101/60
[2017-03-20 04:16] VITALS: BP 115/52
[2017-03-20 08:19] VITALS: BP 116/59
[2017-03-20] MEDS: Vancomycin oral 125mg/2.5ml GT SCH ×4 (09:00→22:14)
--- NOTE | 2017-03-20 09:20 | Pulmonology Progress Note ---
Assessment/Plan Assessment/Plan IMPRESSION: 1. Profound sepsis with shock, 2. Atrial fibrillation. 3. Stroke. 4. Acute on chronic encephalopathy. 5. Prosthetic heart valve per history. 6. Severe protein-calorie malnutrition. 7. Cdif 8. Leukocytosis PLAN respiratory care oxygen on Isolation ID follow up considering alternative SNF as per DNR on feeds care noted and reviewed prognosis poor for any meaningful recovery CM to assist with dc planning check labs today for final decision impression, plan, and exam edited and reviewed in detail care discussed with RN Subjective ROS Limited/Unobtainable: Yes Allergies: Coded Allergies: No Known Allergies (Unverified , 03/13/17) Subjective care noted and reviewed hemodynamics better Objective Last 24 Hour Vital Signs Date Time Temp Pulse Resp B/P Pulse Ox O2 Delivery O2 Flow Rate FiO2 03/20/17 08:19 97.0 76 20 116/59 99 Nasal Cannula 2.0 03/20/17 04:16 98.0 76 24 115/52 98 Nasal Cannula 2.0 03/20/17 04:00 75 03/20/17 00:00 75 03/20/17 00:00 98.6 80 22 101/60 99 Nasal Cannula 2.0 03/19/17 20:00 79 03/19/17 20:00 98.5 65 21 140/65 90 Nasal Cannula 03/19/17 20:00 98.4 78 21 101/39 90 Nasal Cannula 2.0 03/19/17 19:30 75 16 Nasal Cannula 2.0 28 03/19/17 19:30 Nasal Cannula 2.0 28 03/19/17 19:30 97 Nasal Cannula 2.0 28 03/19/17 17:21 75 20 100 Nasal Cannula 2.0 03/19/17 17:11 74 20 99 Nasal Cannula 2.0 28 03/19/17 16:03 98.1 77 20 111/57 99 Nasal Cannula 2.0 03/19/17 16:00 75 03/19/17 12:17 98.4 86 20 97/53 97 Nasal Cannula 2.0 03/19/17 12:00 74 03/19/17 10:09 75 20 98 Nasal Cannula 2.0 28 03/19/17 10:03 77 03/19/17 09:59 74 20 99 Nasal Cannula 2.0 28 Intake and Output 03/19/17 03/20/17 19:00 07:00 Intake Total 760 ml 1990 ml Output Total 200 ml 300 ml Balance 560 ml 1690 ml Free Water 130 ml IV Total 100 ml 1200 ml Tube Feeding 660 ml 660 ml Output Urine Total 200 ml 300 ml # Bowel Movements 1 Objective GENERAL: The patient is an ill-appearing male, withdrawn. nonverbal HEENT: Negative. Pupils are very sluggish at present. NECK: Supple. RESPIRATORY: reduced breath sounds and occasional rhonchi. CARDIAC: S1 and S2. Regular rhythm. Systolic murmur noted. No rubs or gallops. ABDOMEN: Soft and nontender. G-tube in place. No significant distention. EXTREMITIES: No cyanosis or clubbing. There are contractures. NEUROLOGIC: Unable to assess. withdrawn and nonverbal reviewed and edited Current Medications Medications (Trade) Dose Ordered Sig/Eddie Route PRN Reason Start Time Stop Time Status Last Admin Dose Admin Acetaminophen 650 mg 650 mg EVERY 4 HOURS PRN GT Mild Pain/Temp > 100.5 03/13/17 23:00 04/12/17 22:59 03/15/17 13:39 Albuterol Sulfate (Proventil) 2.5 mg Q4HRT PRN HHN Shortness of Breath 03/19/17 09:45 03/24/17 09:44 03/19/17 17:11 Amiodarone HCl (Cordarone) 50 mg DAILY GT 03/14/17 09:00 04/13/17 08:59 03/19/17 09:00 Ascorbic Acid (Vitamin C) 500 mg DAILY GT 03/17/17 17:00 04/16/17 16:59 03/19/17 09:00 Carbidopa/Levodopa (Sinemet 25/100) 1 ea FOUR TIMES A DAY GT 03/14/17 09:00 04/13/17 08:59 03/19/17 22:54 Dextrose (Dextrose 50%) STAT PRN IV Hypoglycemia 03/13/17 23:00 04/12/17 22:59 Digoxin (Lanoxin) 0.125 mg DAILY GT 03/14/17 09:00 04/13/17 08:59 03/19/17 10:03 Heparin Sodium (Porcine) (Heparin 5000 units/ml) 5,000 units EVERY 12 HOURS SUBQ 03/14/17 09:00 04/13/17 08:59 03/19/17 22:59 Levothyroxine Sodium (Synthroid) 88 mcg DAILY@0630 GT 03/14/17 06:30 04/13/17 06:29 03/20/17 06:45 Memantine (Namenda) 10 mg BEDTIME GT 03/14/17 21:00 04/13/17 20:59 03/19/17 22:53 Montelukast Sodium (Singulair) 10 mg QPM GT 03/14/17 16:30 04/13/17 16:29 03/19/17 15:49 Ondansetron HCl (Zofran) 4 mg EVERY 6 HOURS PRN IVP Nausea & Vomiting 03/13/17 23:00 04/12/17 22:59 Patient Own Medication (Patient's Own Med) 1 ea DAILY ORAL 03/18/17 09:00 04/17/17 08:59 03/19/17 09:00 Phenyleph/Shark Oil/Glycerin/ Petrol (Preparation H) 1 applic BID PRN RECTAL HEMORRHOIDS 03/16/17 13:00 04/15/17 12:59 03/17/17 16:01 Pramipexole (Mirapex) 0.25 mg BEDTIME GT 03/14/17 21:00 04/13/17 20:59 03/19/17 22:54 Pramipexole (Mirapex) 0.5 mg TID GT 03/14/17 09:00 04/13/17 08:59 03/19/17 17:39 Rivastigmine Tartrate (Exelon) 4.6 mg DAILY TDERMAL 03/14/17 09:00 04/13/17 08:59 03/19/17 09:00 Sodium Chloride (Sodium Chloride 1000ml bag) 1,000 ml @ 100 mls/hr Q10H IV 03/13/17 23:00 04/12/17 22:59 03/19/17 22:57 Vancomycin HCl (Vancomycin) 250 mg QID GT 03/19/17 13:00 03/25/17 23:59 03/19/17 22:58 Vitamin D (Vitamin D) 2,000 intlu DAILY GT 03/14/17 09:00 04/13/17 08:59 03/19/17 09:00 MOMO MOORE Mar 20, 2017 09:19
[2017-03-20] MEDS: Amiodarone 200mg tab GT SCH (09:37)
[2017-03-20] MEDS: Sinemet 25/100 tab GT SCH ×4 (09:37→22:04)
[2017-03-20] MEDS: DALIRESP 500 MCG ORAL SCH (09:37)
[2017-03-20] MEDS: Vitamin D 1000 IU Tab GT SCH (09:38)
[2017-03-20] MEDS: Ascorbic Acid 500mg tab GT SCH (09:38)
[2017-03-20] MEDS: Digoxin 0.125mg tab GT SCH (09:38)
[2017-03-20] MEDS: Pramipexole 0.5mg tab GT SCH ×4 (09:38→22:03)
[2017-03-20] MEDS: EXELON 4.6 MG TDERMAL SCH (09:39)
[2017-03-20] MEDS: Heparin 5000 units/ml inj SUBQ SCH ×2 (09:40→22:23)
[2017-03-20 10:19] LABS: MEAN CORPUSCULAR HEMOGLOBIN 30.1 PG (27.0-31.0); MEAN CORPUSCULAR HGB CONC 32.4 G/DL (32.0-36.0); MEAN CORPUSCULAR VOLUME 93 FL (80-99); MEAN PLATELET VOLUME 5.7 FL (6.5-10.1); PLATELET COUNT 471 K/UL (150-450); RED BLOOD COUNT 3.37 M/UL (4.70-6.10); RED CELL DISTRIBUTION WIDTH 13.8 % (11.6-14.8); WHITE BLOOD COUNT 21.1 K/UL (4.8-10.8)
[2017-03-20 10:44] LABS: ANION GAP 12 (5-15); CALCIUM 7.6 mg/dL (8.6-10.2); CARBON DIOXIDE 26 mEQ/L (20-30); CHLORIDE 113 mEQ/L (98-107); CREATININE 0.7 mg/dL (0.7-1.2); HEMOLYSIS 5; POTASSIUM 3.9 mEQ/L (3.4-4.9); SODIUM 151 mEQ/L (135-145)
[2017-03-20] MEDS: Albuterol ud Inhalation HHN PRN ×2 (10:51→15:35)
--- NOTE | 2017-03-20 11:18 | Infectious Diseases Prog Note ---
Assessment/Plan Assessment/Plan antibiotics : po vancomycin A 1. c.diff colitis 2. leucocytosis 3. HTN 4. Parkinsons disease P 1. continue po vancomycin 7 more days 2. start and continue flagyl 7 more days 3. will follow up cultures Subjective ROS Limited/Unobtainable: Yes Allergies: Coded Allergies: No Known Allergies (Unverified , 03/13/17) Objective Vital Signs Last 24 Hour Vital Signs Date Time Temp Pulse Resp B/P Pulse Ox O2 Delivery O2 Flow Rate FiO2 03/20/17 11:01 76 20 100 Nasal Cannula 2.0 03/20/17 10:51 80 16 Nasal Cannula 2.0 03/20/17 10:51 97 Nasal Cannula 2.0 03/20/17 10:51 80 20 97 Nasal Cannula 2.0 03/20/17 10:51 Nasal Cannula 2.0 03/20/17 09:38 76 03/20/17 08:19 97.0 76 20 116/59 99 Nasal Cannula 2.0 03/20/17 04:16 98.0 76 24 115/52 98 Nasal Cannula 2.0 03/20/17 04:00 75 03/20/17 00:00 75 03/20/17 00:00 98.6 80 22 101/60 99 Nasal Cannula 2.0 03/19/17 20:00 79 03/19/17 20:00 98.5 65 21 140/65 90 Nasal Cannula 03/19/17 20:00 98.4 78 21 101/39 90 Nasal Cannula 2.0 03/19/17 19:30 75 16 Nasal Cannula 2.0 03/19/17 19:30 Nasal Cannula 2.0 03/19/17 19:30 97 Nasal Cannula 2.0 03/19/17 17:21 75 20 100 Nasal Cannula 2.0 03/19/17 17:11 74 20 99 Nasal Cannula 2.0 03/19/17 16:03 98.1 77 20 111/57 99 Nasal Cannula 2.0 03/19/17 16:00 75 03/19/17 12:17 98.4 86 20 97/53 97 Nasal Cannula 2.0 03/19/17 12:00 74 Height (Feet): 5 Height (Inches): 6.00 Weight (Pounds): 192 Respiratory/Chest: lungs clear Cardiovascular: normal rate, regular rhythm, no gallop/murmur Abdomen: soft, non tender, other - GT Extremities: other - + edema bilaterally Laboratory Tests Test 03/20/17 10:00 White Blood Count 21.1 K/UL (4.8-10.8) H Red Blood Count 3.37 M/UL (4.70-6.10) L Hemoglobin 10.1 G/DL (14.2-18.0) L Hematocrit 31.2 % (42.0-52.0) L Mean Corpuscular Volume 93 FL (80-99) Mean Corpuscular Hemoglobin 30.1 PG (27.0-31.0) Mean Corpuscular Hemoglobin Concent 32.4 G/DL (32.0-36.0) Red Cell Distribution Width 13.8 % (11.6-14.8) Platelet Count 471 K/UL (150-450) H Mean Platelet Volume 5.7 FL (6.5-10.1) L Neutrophils (%) (Auto) % (45.0-75.0) Lymphocytes (%) (Auto) % (20.0-45.0) Monocytes (%) (Auto) % (1.0-10.0) Eosinophils (%) (Auto) % (0.0-3.0) Basophils (%) (Auto) % (0.0-2.0) Neutrophils % (Manual) Pending Lymphocytes % (Manual) Pending Platelet Estimate Pending Platelet Morphology Pending Sodium Level 151 mEQ/L (135-145) H Potassium Level 3.9 mEQ/L (3.4-4.9) Chloride Level 113 mEQ/L (98-107) H Carbon Dioxide Level 26 mEQ/L (20-30) Anion Gap 12 (5-15) Blood Urea Nitrogen 19 mg/dL (7-23) Creatinine 0.7 mg/dL (0.7-1.2) Estimat Glomerular Filtration Rate mL/min (>60) Glucose Level 102 mg/dL (74-106) Calcium Level 7.6 mg/dL (8.6-10.2) KAUSHAL HENDERSON Mar 20, 2017 11:18
[2017-03-20 11:23] LABS: BAND NEUTROPHILS % (MANUAL) 0 % (0-8); BASOPHILS % (MANUAL) 0 % (0-2); EOSINOPHILS % (MANUAL) 0 % (0-3); HYPOCHROMASIA 1+; LYMPHOCYTES % (MANUAL) 23 % (20-45); NEUTROPHILS % (MANUAL) 73 % (45-75); PLATELET ESTIMATE ADEQUATE; PLATELET MORPHOLOGY NORMAL; TOTAL CELLS COUNTED 100
[2017-03-20 11:35] VITALS: BP 103/55
[2017-03-20] MEDS: metroNIDAZOLE 500mg tab ORAL SCH ×2 (13:28→22:04)
[2017-03-20 15:56] VITALS: BP 125/67
[2017-03-20] MEDS: Montelukast 10mg tablet GT SCH (15:56)
[2017-03-20] MEDS: Acetaminophen 650mg/20.3ml GT PRN (15:56)
[2017-03-20 20:00] VITALS: BP 109/60
[2017-03-20] MEDS: Memantine 10mg tab GT SCH (22:03)
[2017-03-21] VITALS (7 sets, daily range): BP systolic 84–126; BP diastolic 49–70
[2017-03-21] MEDS: metroNIDAZOLE 500mg tab ORAL SCH ×3 (06:11→20:49)
[2017-03-21] MEDS: Albuterol ud Inhalation HHN PRN ×2 (06:33→15:32)
[2017-03-21] MEDS: Amiodarone 200mg tab GT SCH (08:55)
[2017-03-21] MEDS: DALIRESP 500 MCG ORAL SCH (08:56)
[2017-03-21] MEDS: Sinemet 25/100 tab GT SCH ×4 (09:00→20:26)
[2017-03-21] MEDS: Ascorbic Acid 500mg tab GT SCH (09:00)
[2017-03-21] MEDS: Vancomycin oral 125mg/2.5ml GT SCH ×4 (09:00→20:49)
[2017-03-21] MEDS: Pramipexole 0.5mg tab GT SCH ×4 (09:00→20:27)
[2017-03-21] MEDS: Vitamin D 1000 IU Tab GT SCH (09:01)
[2017-03-21] MEDS: Digoxin 0.125mg tab GT SCH (09:01)
[2017-03-21] MEDS: EXELON 4.6 MG TDERMAL SCH (09:03)
[2017-03-21] MEDS: Heparin 5000 units/ml inj SUBQ SCH ×2 (09:03→20:25)
--- NOTE | 2017-03-21 09:13 | Infectious Diseases Prog Note ---
Assessment/Plan Assessment/Plan A. C. difficile Colitis Leukocytosis Parkinson disease s/p CVA & left hemiplegia Hypothyroidism Edema Decreased albumin P; continue Flagyl & Po Vancomycin X 6 days F/U CBC, CMP case was d/W with in bedside Subjective ROS Limited/Unobtainable: Yes Gastrointestinal/Abdominal: Reports: other - soft stool, no diarrhea today Allergies: Coded Allergies: No Known Allergies (Unverified , 03/13/17) Objective Vital Signs Last 24 Hour Vital Signs Date Time Temp Pulse Resp B/P Pulse Ox O2 Delivery O2 Flow Rate FiO2 03/21/17 09:01 91 03/21/17 08:11 98.2 91 22 101/51 95 Nasal Cannula 2.0 03/21/17 06:43 76 18 96 Nasal Cannula 2.0 28 03/21/17 06:33 96 Nasal Cannula 2.0 28 03/21/17 06:33 78 18 Nasal Cannula 2.0 03/21/17 06:33 78 18 96 Nasal Cannula 2.0 03/21/17 06:33 Nasal Cannula 2.0 03/21/17 04:00 98.1 78 21 126/70 96 Nasal Cannula 03/21/17 04:00 76 03/21/17 00:00 75 03/21/17 00:00 97.7 76 21 103/57 98 Nasal Cannula 2.0 03/20/17 20:00 75 03/20/17 20:00 97.9 76 20 109/60 99 Nasal Cannula 2.0 03/20/17 19:25 Nasal Cannula 2.0 03/20/17 19:25 98 Nasal Cannula 2.0 03/20/17 19:24 78 18 Nasal Cannula 2.0 03/20/17 16:00 79 03/20/17 15:56 98.6 81 20 125/67 98 Nasal Cannula 2.0 03/20/17 15:43 74 18 99 Nasal Cannula 2.0 03/20/17 15:35 76 18 99 Nasal Cannula 2.0 03/20/17 12:00 75 03/20/17 11:35 98.1 80 20 103/55 97 Nasal Cannula 2.0 03/20/17 11:01 76 20 100 Nasal Cannula 2.0 03/20/17 10:51 80 16 Nasal Cannula 2.0 03/20/17 10:51 97 Nasal Cannula 2.0 03/20/17 10:51 80 20 97 Nasal Cannula 2.0 03/20/17 10:51 Nasal Cannula 2.0 03/20/17 09:38 76 Height (Feet): 5 Height (Inches): 6.00 Weight (Pounds): 192 General Appearance: no acute distress HEENT: mucous membranes moist Respiratory/Chest: lungs clear Cardiovascular: normal rate Genitourinary: other - edema of genital area Extremities: other - edema worse in left side Neurologic/Psychiatric: unresponsiveness Laboratory Tests Test 03/20/17 10:00 White Blood Count 21.1 K/UL (4.8-10.8) H Red Blood Count 3.37 M/UL (4.70-6.10) L Hemoglobin 10.1 G/DL (14.2-18.0) L Hematocrit 31.2 % (42.0-52.0) L Mean Corpuscular Volume 93 FL (80-99) Mean Corpuscular Hemoglobin 30.1 PG (27.0-31.0) Mean Corpuscular Hemoglobin Concent 32.4 G/DL (32.0-36.0) Red Cell Distribution Width 13.8 % (11.6-14.8) Platelet Count 471 K/UL (150-450) H Mean Platelet Volume 5.7 FL (6.5-10.1) L Neutrophils (%) (Auto) % (45.0-75.0) Lymphocytes (%) (Auto) % (20.0-45.0) Monocytes (%) (Auto) % (1.0-10.0) Eosinophils (%) (Auto) % (0.0-3.0) Basophils (%) (Auto) % (0.0-2.0) Differential Total Cells Counted 100 Neutrophils % (Manual) 73 % (45-75) Lymphocytes % (Manual) 23 % (20-45) Monocytes % (Manual) 4 % (1-10) Eosinophils % (Manual) 0 % (0-3) Basophils % (Manual) 0 % (0-2) Band Neutrophils 0 % (0-8) Platelet Estimate Adequate Platelet Morphology Normal Hypochromasia 1+ Sodium Level 151 mEQ/L (135-145) H Potassium Level 3.9 mEQ/L (3.4-4.9) Chloride Level 113 mEQ/L (98-107) H Carbon Dioxide Level 26 mEQ/L (20-30) Anion Gap 12 (5-15) Blood Urea Nitrogen 19 mg/dL (7-23) Creatinine 0.7 mg/dL (0.7-1.2) Estimat Glomerular Filtration Rate mL/min (>60) Glucose Level 102 mg/dL (74-106) Calcium Level 7.6 mg/dL (8.6-10.2) L Current Medications Medications (Trade) Dose Ordered Sig/Eddie Route PRN Reason Start Time Stop Time Status Last Admin Dose Admin Acetaminophen (Tylenol) 650 mg EVERY 4 HOURS PRN GT Mild Pain/Temp > 100.5 03/13/17 23:00 04/12/17 22:59 03/20/17 15:56 Albuterol Sulfate (Proventil) 2.5 mg Q4HRT PRN HHN Shortness of Breath 03/19/17 09:45 03/24/17 09:44 03/21/17 06:33 Amiodarone HCl (Cordarone) 50 mg DAILY GT 03/14/17 09:00 04/13/17 08:59 03/21/17 08:55 Ascorbic Acid (Vitamin C) 500 mg DAILY GT 03/17/17 17:00 04/16/17 16:59 03/21/17 09:00 Carbidopa/Levodopa (Sinemet 25/100) 1 ea FOUR TIMES A DAY GT 03/14/17 09:00 04/13/17 08:59 03/21/17 09:00 Dextrose (Dextrose 50%) STAT PRN IV Hypoglycemia 03/13/17 23:00 04/12/17 22:59 Digoxin (Lanoxin) 0.125 mg DAILY GT 03/14/17 09:00 04/13/17 08:59 03/21/17 09:01 Heparin Sodium (Porcine) (Heparin 5000 units/ml) 5,000 units EVERY 12 HOURS SUBQ 03/14/17 09:00 04/13/17 08:59 03/21/17 09:03 Levothyroxine Sodium (Synthroid) 88 mcg DAILY@0630 GT 03/14/17 06:30 04/13/17 06:29 03/21/17 06:11 Memantine (Namenda) 10 mg BEDTIME GT 03/14/17 21:00 04/13/17 20:59 03/20/17 22:03 Metronidazole (Flagyl) 500 mg Q8HR ORAL 03/20/17 14:00 03/27/17 13:59 03/21/17 06:11 Montelukast Sodium (Singulair) 10 mg QPM GT 03/14/17 16:30 04/13/17 16:29 03/20/17 15:56 Ondansetron HCl (Zofran) 4 mg EVERY 6 HOURS PRN IVP Nausea & Vomiting 03/13/17 23:00 04/12/17 22:59 Patient Own Medication (Patient's Own Med) 1 ea DAILY ORAL 03/18/17 09:00 04/17/17 08:59 03/21/17 08:56 Phenyleph/Shark Oil/Glycerin/ Petrol (Preparation H) 1 applic BID PRN RECTAL HEMORRHOIDS 03/16/17 13:00 04/15/17 12:59 03/17/17 16:01 Pramipexole (Mirapex) 0.25 mg BEDTIME GT 03/14/17 21:00 04/13/17 20:59 03/20/17 22:03 Pramipexole (Mirapex) 0.5 mg TID GT 03/14/17 09:00 04/13/17 08:59 03/21/17 09:00 Rivastigmine Tartrate (Exelon) 4.6 mg DAILY TDERMAL 03/14/17 09:00 04/13/17 08:59 03/21/17 09:03 Vancomycin HCl (Vancomycin) 250 mg QID GT 03/19/17 13:00 03/25/17 12:59 03/21/17 09:00 Vitamin D (Vitamin D) 2,000 intlu DAILY GT 03/14/17 09:00 04/13/17 08:59 03/21/17 09:01 YEE MCRAE Mar 21, 2017 09:13
[2017-03-21 10:36] LABS: MEAN CORPUSCULAR HEMOGLOBIN 30.7 PG (27.0-31.0); MEAN CORPUSCULAR HGB CONC 33.4 G/DL (32.0-36.0); MEAN CORPUSCULAR VOLUME 92 FL (80-99); MEAN PLATELET VOLUME 5.7 FL (6.5-10.1); PLATELET COUNT 429 K/UL (150-450); RED BLOOD COUNT 3.29 M/UL (4.70-6.10); RED CELL DISTRIBUTION WIDTH 13.9 % (11.6-14.8); WHITE BLOOD COUNT 20.4 K/UL (4.8-10.8)
[2017-03-21 10:49] LABS: ALANINE AMINOTRANSFERASE 6 U/L (3-41); ALBUMIN/GLOBULIN RATIO 0.7 (1.0-2.7); ANION GAP 8 (5-15); ASPARTATE AMINO TRANSFERASE 30 U/L (5-40); CALCIUM 7.9 mg/dL (8.6-10.2); CARBON DIOXIDE 29 mEQ/L (20-30); CHLORIDE 110 mEQ/L (98-107); CREATININE 0.6 mg/dL (0.7-1.2); HEMOLYSIS 2; POTASSIUM 3.6 mEQ/L (3.4-4.9); SODIUM 147 mEQ/L (135-145); TOTAL PROTEIN 4.7 g/dL (6.6-8.7)
[2017-03-21 11:07] LABS: BASOPHILS % (MANUAL) 1 % (0-2); LYMPHOCYTES % (MANUAL) 15 % (20-45); METAMYELOCYTES % 3 % (0-0); NEUTROPHILS % (MANUAL) 75 % (45-75); TOTAL CELLS COUNTED 100
[2017-03-21 11:08] LABS: BAND NEUTROPHILS % (MANUAL) 0 % (0-8); EOSINOPHILS % (MANUAL) 0 % (0-3); PLATELET ESTIMATE ADEQUATE; PLATELET MORPHOLOGY NORMAL
--- NOTE | 2017-03-21 13:15 | Pulmonology Progress Note ---
Assessment/Plan Assessment/Plan IMPRESSION: 1. Profound sepsis with shock, 2. Atrial fibrillation. 3. Stroke. 4. Acute on chronic encephalopathy. 5. Prosthetic heart valve per history. 6. Severe protein-calorie malnutrition. 7. Cdif 8. Leukocytosis PLAN respiratory care oxygen on Isolation ID follow up DNR on feeds care noted and reviewed prognosis poor for any meaningful recovery not ready for dc with elevated WBC impression, plan, and exam edited and reviewed in detail care discussed with RN Subjective ROS Limited/Unobtainable: Yes Allergies: Coded Allergies: No Known Allergies (Unverified , 03/13/17) Subjective care noted and reviewed hemodynamics better but WBC still elevated Objective Last 24 Hour Vital Signs Date Time Temp Pulse Resp B/P Pulse Ox O2 Delivery O2 Flow Rate FiO2 03/21/17 12:24 79 103/52 03/21/17 12:07 98.4 80 22 84/49 96 Nasal Cannula 2.0 03/21/17 09:01 91 03/21/17 08:11 98.2 91 22 101/51 95 Nasal Cannula 2.0 03/21/17 07:44 84 03/21/17 06:43 76 18 96 Nasal Cannula 2.0 03/21/17 06:33 96 Nasal Cannula 2.0 03/21/17 06:33 78 18 Nasal Cannula 2.0 03/21/17 06:33 78 18 96 Nasal Cannula 2.0 03/21/17 06:33 Nasal Cannula 2.0 03/21/17 04:00 98.1 78 21 126/70 96 Nasal Cannula 03/21/17 04:00 76 03/21/17 00:00 75 03/21/17 00:00 97.7 76 21 103/57 98 Nasal Cannula 2.0 03/20/17 20:00 75 03/20/17 20:00 97.9 76 20 109/60 99 Nasal Cannula 2.0 03/20/17 19:25 Nasal Cannula 2.0 03/20/17 19:25 98 Nasal Cannula 2.0 03/20/17 19:24 78 18 Nasal Cannula 2.0 03/20/17 16:00 79 03/20/17 15:56 98.6 81 20 125/67 98 Nasal Cannula 2.0 03/20/17 15:43 74 18 99 Nasal Cannula 2.0 03/20/17 15:35 76 18 99 Nasal Cannula 2.0 28 Intake and Output 03/20/17 03/21/17 19:00 07:00 Intake Total 700 ml Output Total 300 ml 700 ml Balance 400 ml -700 ml IV Total 700 ml Output Urine Total 300 ml 700 ml Objective GENERAL: The patient is an ill-appearing male, withdrawn. nonverbal HEENT: Negative. Pupils are very sluggish at present. NECK: Supple. RESPIRATORY: reduced breath sounds and some rhonchi. CARDIAC: S1 and S2. Regular rhythm. Systolic murmur noted. No rubs or gallops. ABDOMEN: Soft and nontender. G-tube in place. No significant distention. EXTREMITIES: No cyanosis or clubbing. There are contractures. NEUROLOGIC: Unable to assess. withdrawn and nonverbal reviewed and edited Laboratory Tests 03/21/17 10:00: White Blood Count 20.4H, Red Blood Count 3.29L, Hemoglobin 10.1L, Hematocrit 30.3L, Mean Corpuscular Volume 92, Mean Corpuscular Hemoglobin 30.7, Mean Corpuscular Hemoglobin Concent 33.4, Red Cell Distribution Width 13.9, Platelet Count 429, Mean Platelet Volume 5.7L, Neutrophils (%) (Auto) , Lymphocytes (%) ( Auto) , Monocytes (%) (Auto) , Eosinophils (%) (Auto) , Basophils (%) (Auto) , Differential Total Cells Counted 100, Neutrophils % (Manual) 75, Lymphocytes % ( Manual) 15L, Monocytes % (Manual) 6, Eosinophils % (Manual) 0, Basophils % ( Manual) 1, Metamyelocytes % 3H, Band Neutrophils 0, Platelet Estimate Adequate, Platelet Morphology Normal, Sodium Level 147H, Potassium Level 3.6, Chloride Level 110H, Carbon Dioxide Level 29, Anion Gap 8, Blood Urea Nitrogen 22, Creatinine 0.6L, Estimat Glomerular Filtration Rate , Glucose Level 129H, Calcium Level 7.9L, Total Bilirubin 0.2, Aspartate Amino Transf (AST/SGOT) 30, Alanine Aminotransferase (ALT/SGPT) 6, Alkaline Phosphatase 80, Total Protein 4.7L, Albumin 2.0L, Globulin 2.7, Albumin/Globulin Ratio 0.7L Current Medications Medications (Trade) Dose Ordered Sig/Eddie Route PRN Reason Start Time Stop Time Status Last Admin Dose Admin Acetaminophen (Tylenol) 650 mg EVERY 4 HOURS PRN GT Mild Pain/Temp > 100.5 03/13/17 23:00 04/12/17 22:59 03/20/17 15:56 Albuterol Sulfate (Proventil) 2.5 mg Q4HRT PRN HHN Shortness of Breath 03/19/17 09:45 03/24/17 09:44 03/21/17 06:33 Amiodarone HCl (Cordarone) 50 mg DAILY GT 03/14/17 09:00 04/13/17 08:59 03/21/17 08:55 Ascorbic Acid (Vitamin C) 500 mg DAILY GT 03/17/17 17:00 04/16/17 16:59 03/21/17 09:00 Carbidopa/Levodopa (Sinemet ) 1 ea FOUR TIMES A DAY GT 03/14/17 09:00 04/13/17 08:59 03/21/17 12:17 Dextrose (Dextrose 50%) STAT PRN IV Hypoglycemia 03/13/17 23:00 04/12/17 22:59 Digoxin (Lanoxin) 0.125 mg DAILY GT 03/14/17 09:00 04/13/17 08:59 03/21/17 09:01 Heparin Sodium (Porcine) (Heparin 5000 units/ml) 5,000 units EVERY 12 HOURS SUBQ 03/14/17 09:00 04/13/17 08:59 03/21/17 09:03 Levothyroxine Sodium (Synthroid) 88 mcg DAILY@0630 GT 03/14/17 06:30 04/13/17 06:29 03/21/17 06:11 Memantine (Namenda) 10 mg BEDTIME GT 03/14/17 21:00 04/13/17 20:59 03/20/17 22:03 Metronidazole (Flagyl) 500 mg Q8HR ORAL 03/20/17 14:00 03/27/17 13:59 03/21/17 06:11 Montelukast Sodium (Singulair) 10 mg QPM GT 03/14/17 16:30 04/13/17 16:29 03/20/17 15:56 Ondansetron HCl (Zofran) 4 mg EVERY 6 HOURS PRN IVP Nausea & Vomiting 03/13/17 23:00 04/12/17 22:59 Patient Own Medication (Patient's Own Med) 1 ea DAILY ORAL 03/18/17 09:00 04/17/17 08:59 03/21/17 08:56 Phenyleph/Shark Oil/Glycerin/ Petrol (Preparation H) 1 applic BID PRN RECTAL HEMORRHOIDS 03/16/17 13:00 04/15/17 12:59 03/17/17 16:01 Pramipexole (Mirapex) 0.25 mg BEDTIME GT 03/14/17 21:00 04/13/17 20:59 03/20/17 22:03 Pramipexole (Mirapex) 0.5 mg TID GT 03/14/17 09:00 04/13/17 08:59 03/21/17 12:17 Rivastigmine Tartrate (Exelon) 4.6 mg DAILY TDERMAL 03/14/17 09:00 04/13/17 08:59 03/21/17 09:03 Vancomycin HCl (Vancomycin) 250 mg QID GT 03/19/17 13:00 03/25/17 12:59 03/21/17 12:18 Vitamin D (Vitamin D) 2,000 intlu DAILY GT 03/14/17 09:00 04/13/17 08:59 03/21/17 09:01 MOMO MOORE Mar 21, 2017 13:15
[2017-03-21] MEDS: Montelukast 10mg tablet GT SCH (17:12)
[2017-03-21] MEDS: Memantine 10mg tab GT SCH (20:28)
[2017-03-22 00:15] VITALS: BP 86/54
[2017-03-22 03:48] VITALS: BP 92/56
[2017-03-22] MEDS: metroNIDAZOLE 500mg tab ORAL SCH (05:39)
[2017-03-22 08:00] VITALS: BP 120/67
--- NOTE | 2017-03-22 08:10 | Pulmonology Progress Note ---
Assessment/Plan Assessment/Plan IMPRESSION: 1. sepsis with shock, 2. Atrial fibrillation. 3. Stroke. 4. Acute on chronic encephalopathy. 5. Prosthetic heart valve per history. 6. Severe protein-calorie malnutrition. 7. Cdif 8. Leukocytosis 9. diarrhea PLAN respiratory care oxygen on Isolation ID follow up GI evaluation DNR on feeds care noted and reviewed prognosis poor hope to dc once WBC trending downwards and cleared by ID not ready for dc with elevated WBC impression, plan, and exam edited and reviewed in detail care discussed with RN Subjective ROS Limited/Unobtainable: Yes Allergies: Coded Allergies: No Known Allergies (Unverified , 03/13/17) Subjective care noted and reviewed hemodynamics better awaiting labs and improvement in diarrhea Objective Last 24 Hour Vital Signs Date Time Temp Pulse Resp B/P Pulse Ox O2 Delivery O2 Flow Rate FiO2 03/22/17 04:00 75 03/22/17 03:48 98.0 75 20 92/56 Nasal Cannula 03/22/17 00:15 98.1 76 21 86/54 Nasal Cannula 03/22/17 00:00 75 03/21/17 20:12 98.1 80 18 99/58 95 Room Air 03/21/17 20:10 83 18 Nasal Cannula 2.0 28 03/21/17 20:10 97 Nasal Cannula 2.0 28 03/21/17 20:10 Nasal Cannula 2.0 28 03/21/17 20:00 78 03/21/17 16:03 98.0 79 22 103/62 96 Room Air 03/21/17 15:49 90 23 95 Nasal Cannula 2.0 03/21/17 15:47 85 03/21/17 15:29 77 20 97 Nasal Cannula 2.0 03/21/17 12:24 79 103/52 03/21/17 12:07 98.4 80 22 84/49 96 Nasal Cannula 2.0 03/21/17 11:35 80 03/21/17 09:01 91 03/21/17 08:11 98.2 91 22 101/51 95 Nasal Cannula 2.0 Intake and Output 03/21/17 03/22/17 19:00 07:00 Intake Total 770 ml Output Total 400 ml 350 ml Balance 370 ml -350 ml Free Water 50 ml Tube Feeding 720 ml Output Urine Total 400 ml 350 ml # Bowel Movements 1 Objective GENERAL: The patient is an ill-appearing male, withdrawn. nonverbal HEENT: Negative. Pupils are very sluggish at present. NECK: Supple. RESPIRATORY: reduced breath sounds and minimal rhonchi. CARDIAC: S1 and S2. Regular rhythm. Systolic murmur noted. No rubs or gallops. ABDOMEN: Soft and nontender. G-tube in place. No significant distention. no HSM EXTREMITIES: No cyanosis or clubbing. There are contractures. NEUROLOGIC: Unable to assess. withdrawn and nonverbal reviewed and edited Laboratory Tests 03/21/17 10:00: White Blood Count 20.4H, Red Blood Count 3.29L, Hemoglobin 10.1L, Hematocrit 30.3L, Mean Corpuscular Volume 92, Mean Corpuscular Hemoglobin 30.7, Mean Corpuscular Hemoglobin Concent 33.4, Red Cell Distribution Width 13.9, Platelet Count 429, Mean Platelet Volume 5.7L, Neutrophils (%) (Auto) , Lymphocytes (%) ( Auto) , Monocytes (%) (Auto) , Eosinophils (%) (Auto) , Basophils (%) (Auto) , Differential Total Cells Counted 100, Neutrophils % (Manual) 75, Lymphocytes % ( Manual) 15L, Monocytes % (Manual) 6, Eosinophils % (Manual) 0, Basophils % ( Manual) 1, Metamyelocytes % 3H, Band Neutrophils 0, Platelet Estimate Adequate, Platelet Morphology Normal, Sodium Level 147H, Potassium Level 3.6, Chloride Level 110H, Carbon Dioxide Level 29, Anion Gap 8, Blood Urea Nitrogen 22, Creatinine 0.6L, Estimat Glomerular Filtration Rate , Glucose Level 129H, Calcium Level 7.9L, Total Bilirubin 0.2, Aspartate Amino Transf (AST/SGOT) 30, Alanine Aminotransferase (ALT/SGPT) 6, Alkaline Phosphatase 80, Total Protein 4.7L, Albumin 2.0L, Globulin 2.7, Albumin/Globulin Ratio 0.7L Current Medications Medications (Trade) Dose Ordered Sig/Eddie Route PRN Reason Start Time Stop Time Status Last Admin Dose Admin Acetaminophen (Tylenol) 650 mg EVERY 4 HOURS PRN GT Mild Pain/Temp > 100.5 03/13/17 23:00 04/12/17 22:59 03/20/17 15:56 Albuterol Sulfate (Proventil) 2.5 mg Q4HRT PRN HHN Shortness of Breath 03/19/17 09:45 7/2/17 09:44 03/21/17 15:32 Amiodarone HCl (Cordarone) 50 mg DAILY GT 03/14/17 09:00 04/13/17 08:59 03/21/17 08:55 Ascorbic Acid (Vitamin C) 500 mg DAILY GT 03/17/17 17:00 04/16/17 16:59 03/21/17 09:00 Carbidopa/Levodopa (Sinemet 25/100) 1 ea FOUR TIMES A DAY GT 03/14/17 09:00 04/13/17 08:59 03/21/17 20:26 Dextrose (Dextrose 50%) STAT PRN IV Hypoglycemia 03/13/17 23:00 04/12/17 22:59 Digoxin (Lanoxin) 0.125 mg DAILY GT 03/14/17 09:00 04/13/17 08:59 03/21/17 09:01 Heparin Sodium (Porcine) (Heparin 5000 units/ml) 5,000 units EVERY 12 HOURS SUBQ 03/14/17 09:00 04/13/17 08:59 03/21/17 20:25 Levothyroxine Sodium (Synthroid) 88 mcg DAILY@0630 GT 03/14/17 06:30 04/13/17 06:29 03/22/17 05:39 Memantine (Namenda) 10 mg BEDTIME GT 03/14/17 21:00 04/13/17 20:59 03/21/17 20:28 Metronidazole (Flagyl) 500 mg Q8HR ORAL 03/20/17 14:00 03/27/17 13:59 03/22/17 05:39 Montelukast Sodium (Singulair) 10 mg QPM GT 03/14/17 16:30 04/13/17 16:29 03/21/17 17:12 Ondansetron HCl (Zofran) 4 mg EVERY 6 HOURS PRN IVP Nausea & Vomiting 03/13/17 23:00 04/12/17 22:59 Patient Own Medication (Patient's Own Med) 1 ea DAILY ORAL 03/18/17 09:00 04/17/17 08:59 03/21/17 08:56 Phenyleph/Shark Oil/Glycerin/ Petrol (Preparation H) 1 applic BID PRN RECTAL HEMORRHOIDS 03/16/17 13:00 04/15/17 12:59 03/17/17 16:01 Pramipexole (Mirapex) 0.25 mg BEDTIME GT 03/14/17 21:00 04/13/17 20:59 03/21/17 20:27 Pramipexole (Mirapex) 0.5 mg TID GT 03/14/17 09:00 04/13/17 08:59 03/21/17 17:12 Rivastigmine Tartrate (Exelon) 4.6 mg DAILY TDERMAL 03/14/17 09:00 04/13/17 08:59 03/21/17 09:03 Vancomycin HCl (Vancomycin) 250 mg QID GT 03/19/17 13:00 03/25/17 12:59 03/21/17 20:49 Vitamin D (Vitamin D) 2,000 intlu DAILY GT 03/14/17 09:00 04/13/17 08:59 03/21/17 09:01 MOMO MOORE Mar 22, 2017 08:10
[2017-03-22] MEDS: Amiodarone 200mg tab GT SCH (08:50)
[2017-03-22] MEDS: Vancomycin oral 125mg/2.5ml GT SCH ×4 (08:50→20:19)
[2017-03-22] MEDS: DALIRESP 500 MCG ORAL SCH (08:50)
[2017-03-22] MEDS: Sinemet 25/100 tab GT SCH ×4 (08:51→20:20)
[2017-03-22] MEDS: EXELON 4.6 MG TDERMAL SCH (08:51)
[2017-03-22] MEDS: Vitamin D 1000 IU Tab GT SCH (08:51)
[2017-03-22] MEDS: Ascorbic Acid 500mg tab GT SCH (08:51)
[2017-03-22] MEDS: Pramipexole 0.5mg tab GT SCH ×4 (08:51→20:20)
[2017-03-22] MEDS: Digoxin 0.125mg tab GT SCH (08:52)
[2017-03-22] MEDS: Heparin 5000 units/ml inj SUBQ SCH ×2 (08:55→20:23)
--- NOTE | 2017-03-22 11:24 | Infectious Diseases Prog Note ---
Assessment/Plan Assessment/Plan antibiotics : po vancomycin, flagyl A 1. c.diff colitis 2. leucocytosis improving 3. HTN 4. Parkinsons disease P 1. continue po vancomycin 5 more days 2. continue flagyl 5 more days 3. will follow up cultures Subjective ROS Limited/Unobtainable: Yes Allergies: Coded Allergies: No Known Allergies (Unverified , 03/13/17) Objective Vital Signs Last 24 Hour Vital Signs Date Time Temp Pulse Resp B/P Pulse Ox O2 Delivery O2 Flow Rate FiO2 03/22/17 08:52 77 03/22/17 08:00 75 03/22/17 08:00 98.4 77 17 120/67 95 Room Air 03/22/17 04:00 75 03/22/17 03:48 98.0 75 20 92/56 Nasal Cannula 03/22/17 00:15 98.1 76 21 86/54 Nasal Cannula 03/22/17 00:00 75 03/21/17 20:12 98.1 80 18 99/58 95 Room Air 03/21/17 20:10 83 18 Nasal Cannula 2.0 03/21/17 20:10 97 Nasal Cannula 2.0 28 03/21/17 20:10 Nasal Cannula 2.0 28 03/21/17 20:00 78 03/21/17 16:03 98.0 79 22 103/62 96 Room Air 03/21/17 15:49 90 23 95 Nasal Cannula 2.0 03/21/17 15:47 85 03/21/17 15:29 77 20 97 Nasal Cannula 2.0 03/21/17 12:24 79 103/52 03/21/17 12:07 98.4 80 22 84/49 96 Nasal Cannula 2.0 03/21/17 11:35 80 Height (Feet): 5 Height (Inches): 6.00 Weight (Pounds): 192 Respiratory/Chest: lungs clear Cardiovascular: normal rate, regular rhythm, no gallop/murmur Abdomen: soft, non tender, other - GT Extremities: other - + edema KAUSHAL MAY Mar 22, 2017 11:24
[2017-03-22] MEDS: Albuterol ud Inhalation HHN PRN ×2 (11:56→15:59)
[2017-03-22 12:00] VITALS: BP 126/74
[2017-03-22] MEDS: metroNIDAZOLE 500mg tab GT SCH ×2 (14:02→21:16)
[2017-03-22 16:00] VITALS: BP 135/67
[2017-03-22] MEDS: Montelukast 10mg tablet GT SCH (16:22)
[2017-03-22] MEDS: Prep H Ointment 57gm RECTAL PRN (18:25)
[2017-03-22 20:00] VITALS: BP 102/58
[2017-03-22] MEDS: Memantine 10mg tab GT SCH (20:21)
[2017-03-23] VITALS (7 sets, daily range): BP systolic 90–128; BP diastolic 45–68
[2017-03-23] MEDS: metroNIDAZOLE 500mg tab GT SCH ×3 (05:56→21:33)
--- NOTE | 2017-03-23 08:39 | Pulmonology Progress Note ---
Assessment/Plan Assessment/Plan IMPRESSION: 1. sepsis with shock, 2. Atrial fibrillation. 3. Stroke. 4. Acute on chronic encephalopathy. 5. Prosthetic heart valve per history. 6. Severe protein-calorie malnutrition. 7. Cdif 8. Leukocytosis 9. diarrhea PLAN respiratory care oxygen as needed on Isolation ID follow up appreciated monitor diarrhea DNR on feeds care noted and reviewed prognosis poor hope to dc soon does not want [place] impression, plan, and exam edited and reviewed in detail care discussed with RN Subjective ROS Limited/Unobtainable: Yes Allergies: Coded Allergies: No Known Allergies (Unverified , 03/13/17) Subjective care noted and reviewed hemodynamics stable concerned about early dc Objective Last 24 Hour Vital Signs Date Time Temp Pulse Resp B/P Pulse Ox O2 Delivery O2 Flow Rate FiO2 03/23/17 07:43 98.2 75 20 105/68 97 Nasal Cannula 3.0 03/23/17 04:00 98.2 79 20 112/58 97 Nasal Cannula 2.0 28 03/23/17 04:00 75 03/23/17 00:00 98.1 81 20 128/56 97 Nasal Cannula 2.0 28 03/23/17 00:00 78 03/22/17 20:00 98.2 77 20 102/58 97 Nasal Cannula 2.0 28 03/22/17 20:00 78 03/22/17 19:20 72 18 Nasal Cannula 2.0 28 03/22/17 19:20 97 Nasal Cannula 2.0 28 03/22/17 19:20 Nasal Cannula 2.0 28 03/22/17 16:05 76 20 97 Nasal Cannula 2.0 28 03/22/17 16:00 81 03/22/17 16:00 99.5 80 18 135/67 97 Nasal Cannula 2.0 03/22/17 15:58 74 20 97 Nasal Cannula 2.0 03/22/17 12:00 98.2 76 17 126/74 97 Room Air 03/22/17 12:00 93 03/22/17 11:55 78 22 95 Nasal Cannula 2.0 28 03/22/17 11:45 78 20 96 Nasal Cannula 2.0 03/22/17 08:52 77 Intake and Output 03/22/17 03/23/17 19:00 07:00 Intake Total 1030 ml 720 ml Output Total 540 ml 400 ml Balance 490 ml 320 ml Free Water 250 ml Tube Feeding 780 ml 720 ml Output Urine Total 540 ml 400 ml # Bowel Movements 1 1 Objective GENERAL: The patient is an ill-appearing male, withdrawn. nonverbal HEENT: Negative. Pupils are very sluggish at present. NECK: Supple. RESPIRATORY: reduced breath sounds and occasional rhonchi. CARDIAC: S1 and S2. Regular rhythm. Systolic murmur noted. No rubs or gallops. ABDOMEN: Soft and nontender. G-tube in place. No significant distention. no HSM EXTREMITIES: No cyanosis or clubbing. There are contractures.no change NEUROLOGIC: Unable to assess. withdrawn and nonverbal reviewed and edited Current Medications Medications (Trade) Dose Ordered Sig/Eddie Route PRN Reason Start Time Stop Time Status Last Admin Dose Admin Acetaminophen (Tylenol) 650 mg EVERY 4 HOURS PRN GT Mild Pain/Temp > 100.5 03/13/17 23:00 04/12/17 22:59 03/20/17 15:56 Albuterol Sulfate (Proventil) 2.5 mg Q4HRT PRN HHN Shortness of Breath 03/19/17 09:45 03/24/17 09:44 03/22/17 15:59 Amiodarone HCl (Cordarone) 50 mg DAILY GT 03/14/17 09:00 04/13/17 08:59 03/22/17 08:50 Ascorbic Acid (Vitamin C) 500 mg DAILY GT 03/17/17 17:00 04/16/17 16:59 03/22/17 08:51 Carbidopa/Levodopa (Sinemet 25/100) 1 ea FOUR TIMES A DAY GT 03/14/17 09:00 04/13/17 08:59 03/22/17 20:20 Dextrose (Dextrose 50%) STAT PRN IV Hypoglycemia 03/13/17 23:00 04/12/17 22:59 Digoxin (Lanoxin) 0.125 mg DAILY GT 03/14/17 09:00 04/13/17 08:59 03/22/17 08:52 Heparin Sodium (Porcine) (Heparin 5000 units/ml) 5,000 units EVERY 12 HOURS SUBQ 03/14/17 09:00 04/13/17 08:59 03/22/17 20:23 Levothyroxine Sodium (Synthroid) 88 mcg DAILY@0630 GT 03/14/17 06:30 04/13/17 06:29 03/23/17 05:56 Memantine (Namenda) 10 mg BEDTIME GT 03/14/17 21:00 04/13/17 20:59 03/22/17 20:21 Metronidazole (Flagyl) 500 mg Q8HR GT 03/22/17 13:10 03/27/17 13:59 03/23/17 05:56 Montelukast Sodium (Singulair) 10 mg QPM GT 03/14/17 16:30 04/13/17 16:29 03/22/17 16:22 Ondansetron HCl (Zofran) 4 mg EVERY 6 HOURS PRN IVP Nausea & Vomiting 03/13/17 23:00 04/12/17 22:59 Patient Own Medication (Patient's Own Med) 1 ea DAILY ORAL 03/18/17 09:00 04/17/17 08:59 03/22/17 08:50 Phenyleph/Shark Oil/Glycerin/ Petrol (Preparation H) 1 applic BID PRN RECTAL HEMORRHOIDS 03/16/17 13:00 04/15/17 12:59 03/22/17 18:25 Pramipexole (Mirapex) 0.25 mg BEDTIME GT 03/14/17 21:00 04/13/17 20:59 03/22/17 20:20 Pramipexole (Mirapex) 0.5 mg TID GT 03/14/17 09:00 04/13/17 08:59 03/22/17 18:24 Rivastigmine Tartrate (Exelon) 4.6 mg DAILY TDERMAL 03/14/17 09:00 04/13/17 08:59 03/22/17 08:51 Vancomycin HCl (Vancomycin) 250 mg QID GT 03/19/17 13:00 03/25/17 12:59 03/22/17 20:19 Vitamin D (Vitamin D) 2,000 intlu DAILY GT 03/14/17 09:00 04/13/17 08:59 03/22/17 08:51 MOMO MOORE Mar 23, 2017 08:39
[2017-03-23] MEDS: Ascorbic Acid 500mg tab GT SCH (09:39)
[2017-03-23] MEDS: Vitamin D 1000 IU Tab GT SCH (09:39)
[2017-03-23] MEDS: Sinemet 25/100 tab GT SCH ×4 (09:39→21:32)
[2017-03-23] MEDS: Pramipexole 0.5mg tab GT SCH ×4 (09:39→21:33)
[2017-03-23] MEDS: Digoxin 0.125mg tab GT SCH (09:39)
[2017-03-23] MEDS: Amiodarone 200mg tab GT SCH (09:39)
[2017-03-23] MEDS: DALIRESP 500 MCG ORAL SCH (09:40)
[2017-03-23] MEDS: EXELON 4.6 MG TDERMAL SCH (09:41)
[2017-03-23] MEDS: Heparin 5000 units/ml inj SUBQ SCH ×2 (09:43→21:39)
[2017-03-23] MEDS: Vancomycin oral 125mg/2.5ml GT SCH ×4 (09:44→21:32)
[2017-03-23 09:49] LABS: BASOPHILS % (AUTO) 0.7 % (0.0-2.0); EOSINOPHILS % (AUTO) 1.8 % (0.0-3.0); LYMPHOCYTES % (AUTO) 16.4 % (20.0-45.0); MEAN CORPUSCULAR HEMOGLOBIN 29.4 PG (27.0-31.0); MEAN CORPUSCULAR HGB CONC 31.8 G/DL (32.0-36.0); MEAN CORPUSCULAR VOLUME 93 FL (80-99); MEAN PLATELET VOLUME 6.2 FL (6.5-10.1); MONOCYTES % (AUTO) 5.2 % (1.0-10.0); NEUTROPHILS % (AUTO) 75.9 % (45.0-75.0); PLATELET COUNT 353 K/UL (150-450); RED BLOOD COUNT 3.17 M/UL (4.70-6.10); RED CELL DISTRIBUTION WIDTH 14.5 % (11.6-14.8); WHITE BLOOD COUNT 16.5 K/UL (4.8-10.8)
[2017-03-23] MEDS: Albuterol ud Inhalation HHN PRN ×2 (10:15→19:48)
[2017-03-23] MEDS: Montelukast 10mg tablet GT SCH (16:38)
[2017-03-23] MEDS: Memantine 10mg tab GT SCH (21:00)
[2017-03-24 03:35] VITALS: BP 95/53
[2017-03-24] MEDS: metroNIDAZOLE 500mg tab GT SCH ×3 (06:28→22:43)
[2017-03-24 07:34] LABS: BASOPHILS % (AUTO) 0.6 % (0.0-2.0); EOSINOPHILS % (AUTO) 1.4 % (0.0-3.0); LYMPHOCYTES % (AUTO) 16.3 % (20.0-45.0); MEAN CORPUSCULAR HEMOGLOBIN 30.3 PG (27.0-31.0); MEAN CORPUSCULAR HGB CONC 32.4 G/DL (32.0-36.0); MEAN CORPUSCULAR VOLUME 94 FL (80-99); MEAN PLATELET VOLUME 6.4 FL (6.5-10.1); NEUTROPHILS % (AUTO) 76.6 % (45.0-75.0); PLATELET COUNT 375 K/UL (150-450); RED BLOOD COUNT 3.23 M/UL (4.70-6.10); RED CELL DISTRIBUTION WIDTH 15.2 % (11.6-14.8); WHITE BLOOD COUNT 15.6 K/UL (4.8-10.8)
[2017-03-24 08:00] VITALS: BP 103/58
[2017-03-24] MEDS: Pramipexole 0.5mg tab GT SCH ×4 (09:23→22:44)
[2017-03-24] MEDS: Vancomycin oral 125mg/2.5ml GT SCH ×4 (09:29→22:42)
[2017-03-24] MEDS: Digoxin 0.125mg tab GT SCH (09:30)
[2017-03-24] MEDS: EXELON 4.6 MG TDERMAL SCH (09:30)
[2017-03-24] MEDS: Sinemet 25/100 tab GT SCH ×4 (09:31→22:42)
[2017-03-24] MEDS: Vitamin D 1000 IU Tab GT SCH (09:31)
[2017-03-24] MEDS: Ascorbic Acid 500mg tab GT SCH (09:33)
[2017-03-24] MEDS: DALIRESP 500 MCG ORAL SCH (09:34)
[2017-03-24] MEDS: Amiodarone 200mg tab GT SCH (09:34)
[2017-03-24] MEDS: Heparin 5000 units/ml inj SUBQ SCH ×2 (09:35→22:48)
--- NOTE | 2017-03-24 10:57 | Infectious Diseases Prog Note ---
Assessment/Plan Assessment/Plan A. C. difficile Colitis Leukocytosis Parkinson disease s/p CVA & left hemiplegia Hypothyroidism Edema Decreased albumin P; continue Flagyl & Po Vancomycin X 3days case was d/W with in bedside Subjective ROS Limited/Unobtainable: Yes Allergies: Coded Allergies: No Known Allergies (Unverified , 03/13/17) Objective Vital Signs Last 24 Hour Vital Signs Date Time Temp Pulse Resp B/P Pulse Ox O2 Delivery O2 Flow Rate FiO2 03/24/17 09:30 75 03/24/17 08:00 75 03/24/17 08:00 97.3 75 20 103/58 100 Nasal Cannula 2.0 03/24/17 07:51 98 Nasal Cannula 2.0 03/24/17 07:51 Nasal Cannula 2.0 03/24/17 07:50 75 20 Nasal Cannula 2.0 03/24/17 04:00 75 03/24/17 03:35 97.9 75 22 95/53 99 Nasal Cannula 2.5 03/24/17 00:28 75 03/23/17 23:57 97.7 75 22 105/61 98 Nasal Cannula 2.5 03/23/17 20:20 75 03/23/17 20:00 98.1 78 22 104/53 95 Nasal Cannula 2.5 03/23/17 19:51 75 20 100 Nasal Cannula 2.0 03/23/17 19:46 98 Nasal Cannula 2.0 03/23/17 19:46 Nasal Cannula 2.0 03/23/17 19:46 75 20 98 Nasal Cannula 2.0 03/23/17 19:44 75 20 Nasal Cannula 2.0 03/23/17 16:26 98.4 75 20 90/45 96 Nasal Cannula 3.0 03/23/17 16:00 75 03/23/17 12:00 80 03/23/17 11:38 98.2 82 20 110/50 96 Nasal Cannula 3.0 Height (Feet): 5 Height (Inches): 6.00 Weight (Pounds): 192 General Appearance: no acute distress HEENT: mucous membranes moist Respiratory/Chest: lungs clear Cardiovascular: normal rate Abdomen: soft, non tender, other - GT feeding Extremities: other - generalized edema Neurologic/Psychiatric: aphasia, other - opens eyes Laboratory Tests Test 03/24/17 05:30 White Blood Count 15.6 K/UL (4.8-10.8) H Red Blood Count 3.23 M/UL (4.70-6.10) L Hemoglobin 9.8 G/DL (14.2-18.0) L Hematocrit 30.2 % (42.0-52.0) L Mean Corpuscular Volume 94 FL (80-99) Mean Corpuscular Hemoglobin 30.3 PG (27.0-31.0) Mean Corpuscular Hemoglobin Concent 32.4 G/DL (32.0-36.0) Red Cell Distribution Width 15.2 % (11.6-14.8) H Platelet Count 375 K/UL (150-450) Mean Platelet Volume 6.4 FL (6.5-10.1) L Neutrophils (%) (Auto) 76.6 % (45.0-75.0) H Lymphocytes (%) (Auto) 16.3 % (20.0-45.0) L Monocytes (%) (Auto) 5.0 % (1.0-10.0) Eosinophils (%) (Auto) 1.4 % (0.0-3.0) Basophils (%) (Auto) 0.6 % (0.0-2.0) Current Medications Medications (Trade) Dose Ordered Sig/Eddie Route PRN Reason Start Time Stop Time Status Last Admin Dose Admin Acetaminophen (Tylenol) 650 mg EVERY 4 HOURS PRN GT Mild Pain/Temp > 100.5 03/13/17 23:00 04/12/17 22:59 03/20/17 15:56 Amiodarone HCl (Cordarone) 50 mg DAILY GT 03/14/17 09:00 04/13/17 08:59 03/24/17 09:34 Ascorbic Acid (Vitamin C) 500 mg DAILY GT 03/17/17 17:00 04/16/17 16:59 03/24/17 09:33 Carbidopa/Levodopa (Sinemet 25/100) 1 ea FOUR TIMES A DAY GT 03/14/17 09:00 04/13/17 08:59 03/24/17 09:31 Dextrose (Dextrose 50%) STAT PRN IV Hypoglycemia 03/13/17 23:00 04/12/17 22:59 Digoxin (Lanoxin) 0.125 mg DAILY GT 03/14/17 09:00 04/13/17 08:59 03/24/17 09:30 Heparin Sodium (Porcine) (Heparin 5000 units/ml) 5,000 units EVERY 12 HOURS SUBQ 03/14/17 09:00 04/13/17 08:59 03/24/17 09:35 Levothyroxine Sodium (Synthroid) 88 mcg DAILY@0630 GT 03/14/17 06:30 04/13/17 06:29 03/24/17 06:28 Memantine (Namenda) 10 mg BEDTIME GT 03/14/17 21:00 04/13/17 20:59 03/23/17 21:00 Metronidazole (Flagyl) 500 mg Q8HR GT 03/22/17 13:10 03/27/17 13:59 03/24/17 06:28 Montelukast Sodium (Singulair) 10 mg QPM GT 03/14/17 16:30 04/13/17 16:29 03/23/17 16:38 Ondansetron HCl (Zofran) 4 mg EVERY 6 HOURS PRN IVP Nausea & Vomiting 03/13/17 23:00 04/12/17 22:59 Patient Own Medication (Patient's Own Med) 1 ea DAILY ORAL 03/18/17 09:00 04/17/17 08:59 03/24/17 09:34 Phenyleph/Shark Oil/Glycerin/ Petrol (Preparation H) 1 applic BID PRN RECTAL HEMORRHOIDS 03/16/17 13:00 04/15/17 12:59 03/22/17 18:25 Pramipexole (Mirapex) 0.25 mg BEDTIME GT 03/14/17 21:00 04/13/17 20:59 03/23/17 21:33 Pramipexole (Mirapex) 0.5 mg TID GT 03/14/17 09:00 04/13/17 08:59 03/24/17 09:23 Rivastigmine Tartrate (Exelon) 4.6 mg DAILY TDERMAL 03/14/17 09:00 04/13/17 08:59 03/24/17 09:30 Vancomycin HCl (Vancomycin) 250 mg QID GT 03/19/17 13:00 03/27/17 12:59 03/24/17 09:29 Vitamin D (Vitamin D) 2,000 intlu DAILY GT 03/14/17 09:00 04/13/17 08:59 03/24/17 09:31 YEE MCRAE Mar 24, 2017 10:57
[2017-03-24 11:36] VITALS: BP 100/46
[2017-03-24] MEDS: Albuterol ud Inhalation HHN PRN (13:39)
--- NOTE | 2017-03-24 15:06 | Pulmonology Progress Note ---
Assessment/Plan Assessment/Plan IMPRESSION: 1. sepsis with shock, 2. Atrial fibrillation. 3. Stroke. 4. Acute on chronic encephalopathy. 5. Prosthetic heart valve per history. 6. Severe protein-calorie malnutrition. 7. Cdif 8. Leukocytosis 9. diarrhea 10. worsening edema PLAN respiratory care oxygen as needed on Isolation still with poor renal function give Juniix will call renal ID follow up appreciated monitor diarrhea DNR on feeds care noted and reviewed prognosis poor hope to dc soon but difficult to stabilize does not want Shashank impression, plan, and exam edited and reviewed in detail care discussed with RN Subjective ROS Limited/Unobtainable: Yes Allergies: Coded Allergies: No Known Allergies (Unverified , 03/13/17) Subjective care noted and reviewed hemodynamics stable concerned about early dc now with worsening edema Objective Last 24 Hour Vital Signs Date Time Temp Pulse Resp B/P Pulse Ox O2 Delivery O2 Flow Rate FiO2 03/24/17 13:52 78 20 100 Nasal Cannula 2.0 03/24/17 13:38 75 20 98 Nasal Cannula 2.0 03/24/17 12:00 75 03/24/17 11:36 97.7 76 20 100/46 100 Nasal Cannula 2.0 03/24/17 09:30 75 03/24/17 08:00 75 03/24/17 08:00 97.3 75 20 103/58 100 Nasal Cannula 2.0 03/24/17 07:51 98 Nasal Cannula 2.0 03/24/17 07:51 Nasal Cannula 2.0 03/24/17 07:50 75 20 Nasal Cannula 2.0 03/24/17 04:00 75 03/24/17 03:35 97.9 75 22 95/53 99 Nasal Cannula 2.5 03/24/17 00:28 75 03/23/17 23:57 97.7 75 22 105/61 98 Nasal Cannula 2.5 03/23/17 20:20 75 03/23/17 20:00 98.1 78 22 104/53 95 Nasal Cannula 2.5 03/23/17 19:51 75 20 100 Nasal Cannula 2.0 03/23/17 19:46 98 Nasal Cannula 2.0 03/23/17 19:46 Nasal Cannula 2.0 03/23/17 19:46 75 20 98 Nasal Cannula 2.0 03/23/17 19:44 75 20 Nasal Cannula 2.0 03/23/17 16:26 98.4 75 20 90/45 96 Nasal Cannula 3.0 03/23/17 16:00 75 Intake and Output 03/23/17 03/24/17 19:00 07:00 Intake Total 600 ml Output Total 300 ml 375 ml Balance -300 ml 225 ml Free Water 60 ml Tube Feeding 540 ml Output Urine Total 300 ml 375 ml # Bowel Movements 1 Objective GENERAL: The patient is an ill-appearing male, withdrawn. nonverbal HEENT: Negative. Pupils are very sluggish at present. NECK: Supple. RESPIRATORY: reduced breath sounds and occasional rhonchi. CARDIAC: S1 and S2. Regular rhythm. Systolic murmur noted. No rubs or gallops. ABDOMEN: Soft and nontender. G-tube in place. No significant distention. no HSM EXTREMITIES: No cyanosis or clubbing. There are contractures.no change; moderate edema diffuse NEUROLOGIC: Unable to assess. withdrawn and nonverbal reviewed and edited Laboratory Tests 03/24/17 05:30: White Blood Count 15.6H, Red Blood Count 3.23L, Hemoglobin 9.8L, Hematocrit 30.2L, Mean Corpuscular Volume 94, Mean Corpuscular Hemoglobin 30.3, Mean Corpuscular Hemoglobin Concent 32.4, Red Cell Distribution Width 15.2H, Platelet Count 375, Mean Platelet Volume 6.4L, Neutrophils (%) (Auto) 76.6H, Lymphocytes (%) (Auto) 16.3L, Monocytes (%) (Auto) 5.0, Eosinophils (%) (Auto) 1.4, Basophils (%) (Auto) 0.6 Current Medications Medications (Trade) Dose Ordered Sig/Eddie Route PRN Reason Start Time Stop Time Status Last Admin Dose Admin Acetaminophen (Tylenol) 650 mg EVERY 4 HOURS PRN GT Mild Pain/Temp > 100.5 03/13/17 23:00 04/12/17 22:59 03/20/17 15:56 Albuterol Sulfate (Proventil) 2.5 mg Q4HRT PRN HHN Shortness of Breath 03/24/17 12:30 03/29/17 12:29 03/24/17 13:39 Amiodarone HCl (Cordarone) 50 mg DAILY GT 03/14/17 09:00 04/13/17 08:59 03/24/17 09:34 Ascorbic Acid (Vitamin C) 500 mg DAILY GT 03/17/17 17:00 04/16/17 16:59 03/24/17 09:33 Carbidopa/Levodopa (Sinemet 25/100) 1 ea FOUR TIMES A DAY GT 03/14/17 09:00 04/13/17 08:59 03/24/17 12:11 Dextrose (Dextrose 50%) STAT PRN IV Hypoglycemia 03/13/17 23:00 04/12/17 22:59 Digoxin (Lanoxin) 0.125 mg DAILY GT 03/14/17 09:00 04/13/17 08:59 03/24/17 09:30 Heparin Sodium (Porcine) (Heparin 5000 units/ml) 5,000 units EVERY 12 HOURS SUBQ 03/14/17 09:00 04/13/17 08:59 03/24/17 09:35 Levothyroxine Sodium (Synthroid) 88 mcg DAILY@0630 GT 03/14/17 06:30 04/13/17 06:29 03/24/17 06:28 Memantine (Namenda) 10 mg BEDTIME GT 03/14/17 21:00 04/13/17 20:59 03/23/17 21:00 Metronidazole (Flagyl) 500 mg Q8HR GT 03/22/17 13:10 03/27/17 13:59 03/24/17 13:48 Montelukast Sodium (Singulair) 10 mg QPM GT 03/14/17 16:30 04/13/17 16:29 03/23/17 16:38 Ondansetron HCl (Zofran) 4 mg EVERY 6 HOURS PRN IVP Nausea & Vomiting 03/13/17 23:00 04/12/17 22:59 Patient Own Medication (Patient's Own Med) 1 ea DAILY ORAL 03/18/17 09:00 04/17/17 08:59 03/24/17 09:34 Phenyleph/Shark Oil/Glycerin/ Petrol (Preparation H) 1 applic BID PRN RECTAL HEMORRHOIDS 03/16/17 13:00 04/15/17 12:59 03/22/17 18:25 Pramipexole (Mirapex) 0.25 mg BEDTIME GT 03/14/17 21:00 04/13/17 20:59 03/23/17 21:33 Pramipexole (Mirapex) 0.5 mg TID GT 03/14/17 09:00 04/13/17 08:59 03/24/17 12:12 Rivastigmine Tartrate (Exelon) 4.6 mg DAILY TDERMAL 03/14/17 09:00 04/13/17 08:59 03/24/17 09:30 Vancomycin HCl (Vancomycin) 250 mg QID GT 03/19/17 13:00 03/27/17 12:59 03/24/17 12:12 Vitamin D (Vitamin D) 2,000 intlu DAILY GT 03/14/17 09:00 04/13/17 08:59 03/24/17 09:31 MOMO MOORE Mar 24, 2017 15:06
[2017-03-24 15:48] VITALS: BP 96/56
[2017-03-24] MEDS: Montelukast 10mg tablet GT SCH (17:07)
[2017-03-24 20:31] VITALS: BP 101/64
[2017-03-24] MEDS: Memantine 10mg tab GT SCH (21:00)
[2017-03-24 23:59] VITALS: BP 106/69
[2017-03-25 04:05] VITALS: BP 102/70
[2017-03-25] MEDS: metroNIDAZOLE 500mg tab GT SCH ×2 (06:34→13:07)
--- NOTE | 2017-03-25 07:52 | Pulmonology Progress Note ---
Assessment/Plan Assessment/Plan IMPRESSION: 1. sepsis with shock, 2. Atrial fibrillation. 3. Stroke. 4. Acute on chronic encephalopathy. 5. Prosthetic heart valve per history. 6. Severe protein-calorie malnutrition. 7. Cdif 8. Leukocytosis 9. diarrhea 10. edema PLAN respiratory care oxygen as needed dc Isolation still with poor renal function give Lasix x1 and monitor ID follow up appreciated monitor diarrhea and output DNR on feeds care noted and reviewed prognosis poor hope to dc soon pending labs impression, plan, and exam edited and reviewed in detail care discussed with RN Subjective ROS Limited/Unobtainable: Yes Allergies: Coded Allergies: No Known Allergies (Unverified , 03/13/17) Subjective care noted and reviewed hemodynamics stable reduced edema Objective Last 24 Hour Vital Signs Date Time Temp Pulse Resp B/P Pulse Ox O2 Delivery O2 Flow Rate FiO2 03/25/17 04:05 98.6 71 20 102/70 96 Room Air 03/25/17 04:00 75 03/25/17 00:00 75 03/24/17 23:59 98.3 75 21 106/69 94 Nasal Cannula 3.0 03/24/17 20:31 99.1 78 19 101/64 90 Nasal Cannula 3.0 03/24/17 20:00 75 03/24/17 19:30 94 Nasal Cannula 2.0 28 03/24/17 19:30 78 20 Nasal Cannula 2.0 28 03/24/17 19:30 Nasal Cannula 2.0 28 03/24/17 16:30 84 03/24/17 15:48 97.5 78 20 96/56 97 Nasal Cannula 2.0 03/24/17 13:52 78 20 100 Nasal Cannula 2.0 03/24/17 13:38 75 20 98 Nasal Cannula 2.0 03/24/17 12:00 75 03/24/17 11:36 97.7 76 20 100/46 100 Nasal Cannula 2.0 03/24/17 09:30 75 03/24/17 08:00 75 03/24/17 08:00 97.3 75 20 103/58 100 Nasal Cannula 2.0 03/24/17 07:51 98 Nasal Cannula 2.0 03/24/17 07:51 Nasal Cannula 2.0 Intake and Output 03/24/17 03/25/17 19:00 07:00 Output Total 1100 ml 2000 ml Balance -1100 ml -2000 ml Output Urine Total 1100 ml 2000 ml # Bowel Movements 1 Objective GENERAL: The patient is an ill-appearing male, withdrawn. nonverbal HEENT: Negative. Pupils are very sluggish at present. NECK: Supple. RESPIRATORY: reduced breath sounds and occasional rhonchi. CARDIAC: S1 and S2. Regular rhythm. Systolic murmur noted. No rubs or gallops. ABDOMEN: Soft and nontender. G-tube in place. No significant distention. no HSM EXTREMITIES: No cyanosis or clubbing. There are contractures.no change; reduced edema NEUROLOGIC: Unable to assess. withdrawn and nonverbal reviewed and edited Current Medications Medications (Trade) Dose Ordered Sig/Eddie Route PRN Reason Start Time Stop Time Status Last Admin Dose Admin Acetaminophen (Tylenol) 650 mg EVERY 4 HOURS PRN GT Mild Pain/Temp > 100.5 03/13/17 23:00 04/12/17 22:59 03/20/17 15:56 Albuterol Sulfate (Proventil) 2.5 mg Q4HRT PRN HHN Shortness of Breath 03/24/17 12:30 03/29/17 12:29 03/24/17 13:39 Amiodarone HCl (Cordarone) 50 mg DAILY GT 03/14/17 09:00 04/13/17 08:59 03/24/17 09:34 Ascorbic Acid (Vitamin C) 500 mg DAILY GT 03/17/17 17:00 04/16/17 16:59 03/24/17 09:33 Carbidopa/Levodopa (Sinemet 25/100) 1 ea FOUR TIMES A DAY GT 03/14/17 09:00 04/13/17 08:59 03/24/17 22:42 Dextrose (Dextrose 50%) STAT PRN IV Hypoglycemia 03/13/17 23:00 04/12/17 22:59 Digoxin (Lanoxin) 0.125 mg DAILY GT 03/14/17 09:00 04/13/17 08:59 03/24/17 09:30 Heparin Sodium (Porcine) (Heparin 5000 units/ml) 5,000 units EVERY 12 HOURS SUBQ 03/14/17 09:00 04/13/17 08:59 03/24/17 22:48 Levothyroxine Sodium (Synthroid) 88 mcg DAILY@0630 GT 03/14/17 06:30 04/13/17 06:29 03/25/17 06:34 Memantine (Namenda) 10 mg BEDTIME GT 03/14/17 21:00 04/13/17 20:59 03/24/17 21:00 Metronidazole (Flagyl) 500 mg Q8HR GT 03/22/17 13:10 03/27/17 13:59 03/25/17 06:34 Montelukast Sodium (Singulair) 10 mg QPM GT 03/14/17 16:30 04/13/17 16:29 03/24/17 17:07 Ondansetron HCl (Zofran) 4 mg EVERY 6 HOURS PRN IVP Nausea & Vomiting 03/13/17 23:00 04/12/17 22:59 Patient Own Medication (Patient's Own Med) 1 ea DAILY ORAL 03/18/17 09:00 04/17/17 08:59 03/24/17 09:34 Phenyleph/Shark Oil/Glycerin/ Petrol (Preparation H) 1 applic BID PRN RECTAL HEMORRHOIDS 03/16/17 13:00 04/15/17 12:59 03/22/17 18:25 Pramipexole (Mirapex) 0.25 mg BEDTIME GT 03/14/17 21:00 04/13/17 20:59 03/24/17 22:44 Pramipexole (Mirapex) 0.5 mg TID GT 03/14/17 09:00 04/13/17 08:59 03/24/17 17:07 Rivastigmine Tartrate (Exelon) 4.6 mg DAILY TDERMAL 03/14/17 09:00 04/13/17 08:59 03/24/17 09:30 Vancomycin HCl (Vancomycin) 250 mg QID GT 03/19/17 13:00 03/27/17 12:59 03/24/17 22:42 Vitamin D (Vitamin D) 2,000 intlu DAILY GT 03/14/17 09:00 04/13/17 08:59 03/24/17 09:31 MOMO MOORE Mar 25, 2017 07:52
[2017-03-25 08:00] VITALS: BP 122/68
[2017-03-25] MEDS: DALIRESP 500 MCG ORAL SCH (08:19)
[2017-03-25] MEDS: Vancomycin oral 125mg/2.5ml GT SCH ×2 (08:19→13:07)
[2017-03-25] MEDS: Amiodarone 200mg tab GT SCH (08:19)
[2017-03-25] MEDS: Vitamin D 1000 IU Tab GT SCH (08:20)
[2017-03-25] MEDS: Ascorbic Acid 500mg tab GT SCH (08:20)
[2017-03-25] MEDS: EXELON 4.6 MG TDERMAL SCH (08:20)
[2017-03-25] MEDS: Sinemet 25/100 tab GT SCH ×2 (08:20→13:06)
[2017-03-25] MEDS: Pramipexole 0.5mg tab GT SCH ×2 (08:21→13:06)
[2017-03-25] MEDS: Digoxin 0.125mg tab GT SCH (08:21)
[2017-03-25] MEDS: Heparin 5000 units/ml inj SUBQ SCH (08:24)
[2017-03-25] MEDS ORDERED: Sterile Water Irrig 1000ml IRRIG ONE (09:10)
[2017-03-25 09:56] LABS: EOSINOPHILS % (AUTO) 1.8 % (0.0-3.0); LYMPHOCYTES % (AUTO) 17.6 % (20.0-45.0); MEAN CORPUSCULAR HGB CONC 33.2 G/DL (32.0-36.0); MEAN CORPUSCULAR VOLUME 93 FL (80-99); MEAN PLATELET VOLUME 6.4 FL (6.5-10.1); MONOCYTES % (AUTO) 5.6 % (1.0-10.0); NEUTROPHILS % (AUTO) 73.9 % (45.0-75.0); PLATELET COUNT 354 K/UL (150-450); RED BLOOD COUNT 3.07 M/UL (4.70-6.10); RED CELL DISTRIBUTION WIDTH 15.3 % (11.6-14.8); WHITE BLOOD COUNT 12.9 K/UL (4.8-10.8)
[2017-03-25 10:17] LABS: ANION GAP 6 (5-15); CALCIUM 8.2 mg/dL (8.6-10.2); CARBON DIOXIDE 35 mEQ/L (20-30); CHLORIDE 102 mEQ/L (98-107); CREATININE 0.6 mg/dL (0.7-1.2); HEMOLYSIS 3; POTASSIUM 4.3 mEQ/L (3.4-4.9); SODIUM 143 mEQ/L (135-145)
[2017-03-25] MEDS: Albuterol ud Inhalation HHN PRN ×2 (11:17→16:34)
[2017-03-25 11:25] VITALS: BP 117/68
--- NOTE | 2017-03-25 12:15 | Infectious Diseases Prog Note ---
Assessment/Plan Assessment/Plan antibiotics : po vancomycin, flagyl A 1. c.diff colitis 2. leucocytosis improving 3. HTN 4. Parkinsons disease P 1. continue po vancomycin 2 more days 2. continue flagyl 2 more days 3. will follow up cultures Subjective ROS Limited/Unobtainable: Yes Allergies: Coded Allergies: No Known Allergies (Unverified , 03/13/17) Objective Vital Signs Last 24 Hour Vital Signs Date Time Temp Pulse Resp B/P Pulse Ox O2 Delivery O2 Flow Rate FiO2 03/25/17 11:25 98.1 75 20 117/68 100 Nasal Cannula 3.0 03/25/17 11:24 76 18 98 Nasal Cannula 2.0 03/25/17 11:17 76 18 97 Nasal Cannula 2.0 03/25/17 08:21 78 03/25/17 08:00 97.5 78 20 122/68 100 3.0 03/25/17 07:22 96 Nasal Cannula 2.0 28 03/25/17 07:22 Nasal Cannula 2.0 28 03/25/17 07:22 76 20 Nasal Cannula 2.0 03/25/17 04:05 98.6 71 20 102/70 96 Room Air 03/25/17 04:00 75 03/25/17 00:00 75 03/24/17 23:59 98.3 75 21 106/69 94 Nasal Cannula 3.0 03/24/17 20:31 99.1 78 19 101/64 90 Nasal Cannula 3.0 03/24/17 20:00 75 03/24/17 19:30 94 Nasal Cannula 2.0 28 03/24/17 19:30 78 20 Nasal Cannula 2.0 03/24/17 19:30 Nasal Cannula 2.0 28 03/24/17 16:30 84 03/24/17 15:48 97.5 78 20 96/56 97 Nasal Cannula 2.0 03/24/17 13:52 78 20 100 Nasal Cannula 2.0 03/24/17 13:38 75 20 98 Nasal Cannula 2.0 Height (Feet): 5 Height (Inches): 6.00 Weight (Pounds): 192 Respiratory/Chest: lungs clear Cardiovascular: normal rate, regular rhythm, no gallop/murmur Abdomen: soft, non tender, other - GT Extremities: other - + edema Laboratory Tests Test 03/25/17 09:15 White Blood Count 12.9 K/UL (4.8-10.8) H Red Blood Count 3.07 M/UL (4.70-6.10) L Hemoglobin 9.5 G/DL (14.2-18.0) L Hematocrit 28.7 % (42.0-52.0) L Mean Corpuscular Volume 93 FL (80-99) Mean Corpuscular Hemoglobin 31.0 PG (27.0-31.0) Mean Corpuscular Hemoglobin Concent 33.2 G/DL (32.0-36.0) Red Cell Distribution Width 15.3 % (11.6-14.8) H Platelet Count 354 K/UL (150-450) Mean Platelet Volume 6.4 FL (6.5-10.1) L Neutrophils (%) (Auto) 73.9 % (45.0-75.0) Lymphocytes (%) (Auto) 17.6 % (20.0-45.0) L Monocytes (%) (Auto) 5.6 % (1.0-10.0) Eosinophils (%) (Auto) 1.8 % (0.0-3.0) Basophils (%) (Auto) 1.0 % (0.0-2.0) Sodium Level 143 mEQ/L (135-145) Potassium Level 4.3 mEQ/L (3.4-4.9) Chloride Level 102 mEQ/L (98-107) Carbon Dioxide Level 35 mEQ/L (20-30) H Anion Gap 6 (5-15) Blood Urea Nitrogen 16 mg/dL (7-23) Creatinine 0.6 mg/dL (0.7-1.2) L Estimat Glomerular Filtration Rate mL/min (>60) Glucose Level 114 mg/dL (74-106) H Calcium Level 8.2 mg/dL (8.6-10.2) L KAUSHAL MAY Mar 25, 2017 12:15
[2017-03-25 15:33] VITALS: BP 116/61
--- NOTE | 2017-03-27 20:14 | Discharge Summary ---
Discharge Summary Hospital Course Date of Admission Mar 13, 2017 at 16:17 Date of Discharge Mar 25, 2017 at 17:30 Admitting Diagnosis SEPTIC SHOCK HPI Troy Granda is a 81 year old male who was admitted on Mar 13, 2017 at 16: 17 for Septic Shock Hospital Course [id number] Discharge Discharge Disposition Patient was discharged to SNF/Subacute Facility(03) Discharge Diagnoses: Daphne Da Silva NP Mar 27, 2017 20:14
--- NOTE | 2017-03-28 05:15 | Discharge Summary 2 SIG ---
DATE OF ADMISSION: 03/13/2017 DATE OF DISCHARGE: 03/25/2017 CONSULTANTS: 1. Juan Jonas M.D. 2. Blane Orantes M.D. BRIEF HOSPITAL COURSE: The patient is an 81-year-old male with history of encephalopathy, stroke, hypertension, COPD, chronic respiratory failure, severe Parkinson's disease, ischemic cardiomyopathy, conduction system disease, status post pacemaker. He presented from custodial facility with complaints of abdominal pain, diarrhea, and severe leukocytosis. He was noted to be increasingly congested, hypotensive, was febrile and has been having diarrhea for several days. On evaluation at ED, workup showed leukocytosis, WBC was 53,000. He was febrile, temperature of 102 and was hypotensive. He was given aggressive IV fluid resuscitation. CT of the abdomen and pelvis was done, showed findings consistent with colitis. The patient was pancultured and was started on broad-spectrum antibiotics and was admitted to telemetry for septic shock and fever with colitis. He was started initially on IV vancomycin and Zosyn and was switched to Flagyl and p.o. vancomycin. Chest x-ray was negative. Urinalysis was negative. He was given respiratory care. Family confirmed the patient DNR status. He came in with pressure ulcers and scattered scabs. Wound care was rendered. Stool C. difficile was positive. Urine culture negative. Blood culture did not isolate any growth. Plan of care discussed with family and prognosis is poor for any meaningful recovery. The patient continued with leukocytosis, was given continued course of vancomycin and Flagyl. declined [place] and the patient was eventually discharged to SNF. FINAL DIAGNOSES: 1. Sepsis with shock. 2. Clostridium difficile colitis. 3. Atrial fibrillation. 4. Old stroke. 5. Acute on chronic encephalopathy. 6. Prosthetic heart valve. 7. Severe protein-calorie malnutrition. 8. Edema. 9. Parkinson's disease. 10. Hypertension. 11. Right heel deep tissue injury, unstageable pressure ulcer, present on admission. Julian Soni M.D. I have been assigned to dictate discharge summary on this account and I was not involved in the patient's management. Daphne Da Silva N.P. DR: HERLINDA JOB#: [id number] CC: MARCO ANTONIO
== END 2017-03-25 17:30 | DRG 871 ==
LOC: EDBD 14:54 → EMR 15:23 → ICU 16:17 → EDBEDREQ 16:30 → EDBEDREQSVC 18:54 → EDBEDREQ 18:54 → 2E 20:22
DX: A41.9 Sepsis, unspecified organism (principal); E43 Unspecified severe protein-calorie malnutrition; R65.21 Severe sepsis with septic shock; G93.40 Encephalopathy, unspecified; A04.7 Enterocolitis due to Clostridium difficile; J96.10 Chronic respiratory failure, unspecified whether with hypoxia or hypercapnia; G20 Parkinson's disease; I69.354 Hemiplegia and hemiparesis following cerebral infarction affecting left non-dominant side; I48.91 Unspecified atrial fibrillation; Z66 Do not resuscitate; Z95.2 Presence of prosthetic heart valve; J44.9 Chronic obstructive pulmonary disease, unspecified; I10 Essential (primary) hypertension; L89.610 Pressure ulcer of right heel, unstageable
CPT/HCPCS: 36415; 71010; 74177; 80048; 80053; 80202; 81003; 82550; 82553; 82962; 83605; 83735; 84484; 85007; 85025; 87040; 87070; 87081; 87086; 87181; 87205; 87324; 93005; 94640; 94664; 94760; C9399